=== PATIENT | female | born 1955 | race Caucasian/White ===

== ENCOUNTER 2016-07-21 16:43 | Inpatient (IN) | payer OTHER ==
[~2016-07-21] VITALS: Ht 157.5 cm; Wt 101.2 kg
[~2016-07-21 16:43] MED LIST: LISI10 PO; METO25 PO; NORV5TAB PO; Z.0.NO CURRENT MEDS
[2016-07-21 16:48] VITALS: BP 166/103; PULSE 81; RESP 16; TEMP 98.6; O2SAT 97
[2016-07-21] MEDS ORDERED: LISI-515 PO (17:01)
[2016-07-21] MEDS ORDERED: METO25TA3 PO (17:01)
[2016-07-21] MEDS ORDERED: SIMV40TA PO (17:01)
[2016-07-21] MEDS ORDERED: PANT40TA3 PO (17:01)
[2016-07-21] MEDS ORDERED: AMLO10TA2 PO (17:01)
--- NOTE | 2016-07-21 17:19 | PD ---
HPI Chief Complaint: Abdominal Pain Time Seen by Provider: 17:07 Travel History International Travel<30 days: No Contact w/Intl Traveler<30days: No Traveled to known affect area: No History of Present Illness HPI This 60-year-old female is complaining of abdominal pain. She says she is having a very sharp pain in the left midabdomen. The pain is somewhat intermittent. She has not eaten much since Sunday. She thinks the pain is aggravated by eating she is not sure. She had seen Dr. Díaz at one time because of gallbladder trouble. At that time she was quite obese and he told her she had to lose weight before he can operate on it. She's also been told that she has a hernia. She has not been vomiting. She is not aware of fever or chills. She has been taking Protonix for couple of years. She is not having pain right now. She has lost 55 pounds in the last couple of years PFSH Past Medical History Cardiovascular Problems: Yes (htn on meds, states did not take meds today) High Cholesterol: Yes Diminished Hearing: No Gastrointestinal Disorders: Yes (GALBLADDER DISEASE) Hypertension: Yes Immunizations Current: Yes Influenza Vaccination: No ?: Not Past Surgical History Surgical History: No Previous Surgery Gynecologic Surgery: Yes (D & C) Oral Surgery: Yes (TONSILLECTOMY CHILD) Other Surgery: Yes Social History Alcohol Use: Yes ("DRANK YESTERDAY") Tobacco Use: No Substance Use: No Allergies-Medications (Allergen,Severity, Reaction): Coded Allergies: Amoxicillin (Verified Allergy, Severe, Swelling, 07/21/16) Reported Meds & Prescriptions Reported Meds & Active Scripts Active Reported Pantoprazole (Pantoprazole Sodium) 40 Mg Tab 40 Mg PO DAILY Amlodipine (Amlodipine Besylate) 10 Mg Tab 10 Mg PO DAILY Lisinopril 20 Mg Tab 20 Mg PO DAILY Metoprolol Tartrate 25 Mg Tab 25 Mg PO BID Simvastatin 40 Mg Tab 40 Mg PO HS Review of Systems General / Constitutional: Positive: Weight Loss, No: Fever, Chills Eyes: No: Blurred Vision HENT: No: Vertigo, Lightheadedness Cardiovascular: No: Chest Pain or Discomfort, Palpitations Respiratory: No: Cough, Shortness of Breath Gastrointestinal: Positive: Abdominal Pain, Loss of Appetite, No: Diarrhea Genitourinary: No: Urgency Musculoskeletal: No: Myalgias, Arthralgias Skin: No Rash, No Itching Neurologic: No: Weakness, Dizziness Endocrine: No: Heat Intolerance, Cold Intolerance Hematologic/Lymphatic: No: Easy Bruising Physical Exam Narrative GENERAL: Obese female SKIN: Focused skin assessment warm/dry. HEAD: Atraumatic. Normocephalic. EYES: Pupils equal and round. No scleral icterus. No injection or drainage. ENT: No nasal bleeding or discharge. Mucous membranes pink and moist. NECK: Trachea midline. No JVD. CARDIOVASCULAR: Regular rate and rhythm. No murmur appreciated. RESPIRATORY: No accessory muscle use. Clear to auscultation. Breath sounds equal bilaterally. GASTROINTESTINAL: Abdomen soft, there is a very large area of protuberance involving the majority of the abdomen . I suspect is a large panniculus from her obesity. Hepatic and splenic margins not palpable. MUSCULOSKELETAL: No obvious deformities. No clubbing. No cyanosis. No edema. NEUROLOGICAL: Awake and alert. No obvious cranial nerve deficits. Motor grossly within normal limits. Normal speech. PSYCHIATRIC: Appropriate mood and affect; insight and judgment normal. Data Data Last Documented VS Vital Signs Date Time Temp Pulse Resp B/P Pulse Ox O2 Delivery O2 Flow Rate FiO2 07/21/16 16:48 98.6 81 16 166/103 97 Orders Complete Blood Count With Diff (07/21/16 17:13) Comprehensive Metabolic Panel (07/21/16 17:13) Lipase (07/21/16 17:13) Urinalysis - C+S If Indicated (07/21/16 17:13) Ct Abd/Pel W Iv Contrast(Rout) (07/21/16 17:13) Sodium Chlor 0.9% 1000 Ml Inj (Ns 1000 M (07/21/16 17:15) Iohexol 350 Inj (Omnipaque 350 Inj) (07/21/16 18:43) Insert Ng Tube (07/21/16 19:24) Place Ng Tube To Low Intermit (07/21/16 19:24) Ns + Kcl 40 Meq Inj (Ns + Kcl 40 Meq Inj (07/21/16 19:30) Admit Order (Ed Use Only) (07/21/16 19:37) Urine Culture (07/21/16 19:27) Labs Laboratory Tests Test 07/21/16 07/21/16 17:20 19:27 White Blood Count 7.9 TH/MM3 Red Blood Count 4.47 MIL/MM3 Hemoglobin 13.5 GM/DL Hematocrit 39.0 % Mean Corpuscular Volume 87.3 FL Mean Corpuscular Hemoglobin 30.1 PG Mean Corpuscular Hemoglobin 34.5 % Concent Red Cell Distribution Width 13.7 % Platelet Count 262 TH/MM3 Mean Platelet Volume 7.7 FL Neutrophils (%) (Auto) 78.6 % Lymphocytes (%) (Auto) 15.7 % Monocytes (%) (Auto) 4.6 % Eosinophils (%) (Auto) 0.8 % Basophils (%) (Auto) 0.3 % Neutrophils # (Auto) 6.2 TH/MM3 Lymphocytes # (Auto) 1.2 TH/MM3 Monocytes # (Auto) 0.4 TH/MM3 Eosinophils # (Auto) 0.1 TH/MM3 Basophils # (Auto) 0.0 TH/MM3 CBC Comment DIFF FINAL Differential Comment Sodium Level 142 MEQ/L Potassium Level 3.3 MEQ/L Chloride Level 106 MEQ/L Carbon Dioxide Level 25.9 MEQ/L Anion Gap 10 MEQ/L Blood Urea Nitrogen 13 MG/DL Creatinine 0.85 MG/DL Estimat Glomerular Filtration 68 ML/MIN Rate Random Glucose 93 MG/DL Calcium Level 9.0 MG/DL Total Bilirubin 0.9 MG/DL Aspartate Amino Transf 13 U/L (AST/SGOT) Alanine Aminotransferase 24 U/L (ALT/SGPT) Alkaline Phosphatase 90 U/L Total Protein 6.9 GM/DL Albumin 3.4 GM/DL Lipase 82 U/L Urine Color YELLOW Urine Turbidity CLEAR Urine pH 5.0 Urine Specific [place] GREATER THAN 1.035 Urine Protein NEG mg/dL Urine Glucose (UA) NEG mg/dL Urine Ketones 80 OR GREATER mg/dL Urine Occult Blood NEG Urine Nitrite POS Urine Bilirubin NEG Urine Leukocyte Esterase NEG Urine RBC 0-2 /hpf Urine WBC 6-8 /hpf Urine Squamous Epithelial 0-5 /hpf Cells Urine Bacteria FEW /hpf Microscopic Urinalysis Comment CULTURE INDICATED MDM Medical Decision Making Medical Screen Exam Complete: Yes Emergency Medical Condition: Yes Medical Record Reviewed: Yes Differential Diagnosis Differential includes ventral hernia, cholelithiasis, cholecystitis Narrative Course CT scan was obtained and shows a huge ventral abdominal wall hernia with multiple loops of small and large bowel resulting in small bowel correction. There is also mild hepatosplenomegaly. There is also cholelithiasis. Case has been discussed with Dr. Díaz who is covering for general surgery for [facility]. He requests the patient be admitted to [facility]. NG tube has been inserted Diagnosis Primary Impression: Small bowel obstruction Admitting Information Admitting Physician Requests: Admit Dillan Patel MD Jul 21, 2016 17:19
[2016-07-21 17:42] LABS: AUTOMATED NEUTROPHIL # 6.2 TH/MM3 (1.8-7.7); BASOPHIL % 0.3 % (0.0-2.0); EOSINOPHIL # 0.1 TH/MM3 (0-0.4); EOSINOPHIL % 0.8 % (0.0-4.0); HEMO FLAGS DIFF FINAL; LYMPH % 15.7 % (9.0-44.0); LYMPHOCYTE # 1.2 TH/MM3 (1.0-4.8); MEAN CELL VOLUME 87.3 FL (80.0-100.0); MEAN CORPUSCULAR HEMOGLOBIN 30.1 PG (27.0-34.0); MEAN CORPUSCULAR HGB CONC 34.5 % (32.0-36.0); MONO % 4.6 % (0.0-8.0); NEUT % 78.6 % (16.0-70.0); PLATELET COUNT 262 TH/MM3 (150-450); RED BLOOD COUNT 4.47 MIL/MM3 (4.00-5.30); RED CELL DISTRIBUTION WIDTH 13.7 % (11.6-17.2); WHITE BLOOD COUNT 7.9 TH/MM3 (4.0-11.0)
[2016-07-21] MEDS: SODIUM CHLOR 0.9% 1000 ML INJ 1,000 ML IV SCH (17:42)
[2016-07-21 17:54] LABS: CHLORIDE 106 MEQ/L (98-107); POTASSIUM 3.3 MEQ/L (3.5-5.1); SODIUM (NA) 142 MEQ/L (136-145)
[2016-07-21 17:59] LABS: ANION GAP 10 MEQ/L (5-15); BICARBONATE 25.9 MEQ/L (21.0-32.0); BLOOD UREA NITROGEN 13 MG/DL (7-18)
[2016-07-21 18:02] LABS: ALT (GPT) 24 U/L (10-53); AST (GOT) 13 U/L (15-37); GLOMERULAR FILTRATION RATE 68 ML/MIN (>89)
[2016-07-21 18:03] LABS: TOTAL BILIRUBIN ADULT 0.9 MG/DL (0.2-1.0)
[2016-07-21 18:05] LABS: ALKALINE PHOSPHATASE 90 U/L (45-117)
[2016-07-21] MEDS ORDERED: IOHEXOL 350 MG/ML 10 ML VIAL (for RAD DIAG) IV ONE (18:43)
--- NOTE | 2016-07-21 19:01 | RADHPO ---
EXAM DATE/TIME: 07/21/2016 18:22 [facility] COMPARISON: No previous studies available for comparison. INDICATIONS : Left sided abdominal pain for three days. IV CONTRAST: 97 cc Omnipaque 350 (iohexol) IV ORAL CONTRAST: No oral contrast ingested. RADIATION DOSE: 20.72 CTDIvol (mGy) MEDICAL HISTORY : Hypertension. SURGICAL HISTORY : None. ENCOUNTER: Initial ACUITY: 3 days PAIN SCALE: 7/10 LOCATION: Left abdomen. TECHNIQUE: Volumetric scanning of the abdomen and pelvis was performed. Using automated exposure control and ad justment of the mA and/or kV according to patient size, radiation dose was kept as low as reasonably achievable to obtain optimal diagnostic quality images. FINDINGS: There is a huge ventral abdominal wall hernia which contains multiple loops of small and large bowel. There is evidence of small bowel obstruction likely related to this hernia with multiple loops of fl uid-filled mildly dilated small intestine remaining within the abdomen and pelvis. There is mild hep atosplenomegaly. No focal hepatic or splenic mass is noted. No biliary ductal dilatation is noted. The gallbladder contains a large calcified gallstone. There is minimal ascites within the abdomen. The pancreas is normal. The adrenal glands are normal bilaterally. There is a cystic lesion arising from the medial aspect of the lower pole of the right kidney which measures 14 mm. Uncomplicated si gmoid diverticulosis is noted. No acute diverticulitis is noted. No colonic obstruction is noted. Th e urinary bladder is unremarkable. The uterus is also unremarkable. No retroperitoneal or mesenteri c lymphadenopathy is noted. No pelvic lymphadenopathy is noted. The abdominal aorta is calcified but is not aneurysmally dilated. The inferior vena cava is normal. Degenerative changes and scoliosis of the thoracolumbar spine are noted. There is a small left pleural effusion. CONCLUSION: 1. Huge ventral abdominal wall hernia containing multiple loops of small and large bowel and resultin g in small bowel obstruction. 2. Mild hepatosplenomegaly. 3. Cholelithiasis. 4. 14 mm cystic mass arising from the medial aspect of the lower pole of the right kidney. 5. Small left pleural effusion. 6. Uncomplicated sigmoid diverticulosis. 7. Minimal ascites. 8. Degenerative changes and scoliosis of the thoracolumbar spine. Lucho Brooke MD on July 21, 2016 at 18:46 Board Certified Radiologist. This report was verified electronically.
[2016-07-21 19:38] LABS: BLOOD, URINE NEG (NEG); GLUCOSE,URINE NEG (NEG)
[2016-07-21] MEDS: NS + KCL 40 MEQ INJ 1,000 ML IV SCH (19:40)
[2016-07-21 19:43] LABS: KETONE, URINE 80 OR GREATER mg/dL (NEG); NITRITE,URINE POS (NEG)
[2016-07-21 19:44] LABS: BACTERIA, URINE FEW /hpf; COMMENT (UR) CULTURE INDICATED; CULTURE IF INDICATED CULTURE INDICATED; RBC, URINE 0-2 /hpf (0-3); SQUAMOUS EPITHELIAL CELL URINE 0-5 /hpf (0-5); URINE COLOR YELLOW (YELLW/STRAW)
[2016-07-21] MEDS ORDERED: ONDANSETRON HCL 4 MG/2 ML VIAL IV PUSH ONE (20:00)
[2016-07-21] MEDS ORDERED: MORPHINE SULFATE 8 MG/ML INJ IV PUSH ONE (20:00)
[2016-07-21 20:48] VITALS: BP 153/82; PULSE 85; RESP 18; O2SAT 95
[2016-07-21 22:41] VITALS: BP 187/70; PULSE 75; RESP 20; TEMP 98.7; O2SAT 95
[2016-07-21 22:54] VITALS: BP 187/70; TEMP 98.7
[2016-07-22 00:10] VITALS: BP 152/69; PULSE 73; RESP 17; TEMP 97.1; O2SAT 97
[2016-07-22] MEDS: NS + KCL 40 MEQ INJ 1,000 ML IV SCH ×6 (00:30→23:52)
[2016-07-22] MEDS ORDERED: PHENOL 1.4% SOLN 180 ML BTL PO PRN (01:15)
[2016-07-22] MEDS: SODIUM CHLOR 0.9% 1000 ML INJ 1,000 ML IV SCH ×5 (01:57→23:52)
[2016-07-22 04:10] VITALS: BP 142/68; PULSE 71; RESP 17; TEMP 97.4; O2SAT 96
[2016-07-22 08:00] VITALS: BP 153/76; PULSE 78; RESP 18; TEMP 97.8; O2SAT 95
[2016-07-22] MEDS: LISINOPRIL 20 MG TAB PO SCH (09:00)
[2016-07-22] MEDS: METOPROLOL TARTRATE 25 MG TAB PO SCH ×2 (09:00→20:47)
[2016-07-22 12:00] VITALS: BP 138/69; PULSE 70; RESP 18; TEMP 97; O2SAT 95
[2016-07-22 16:00] VITALS: BP 158/80; PULSE 67; RESP 18; TEMP 97.6; O2SAT 96
[2016-07-22 20:07] VITALS: BP 130/72; PULSE 69; RESP 18; TEMP 97.5; O2SAT 96
[2016-07-22] MEDS: PRAVASTATIN SOD 80 MG TAB PO SCH (20:47)
[2016-07-23 00:01] VITALS: BP_SYST 127; BP_SYST 141; BP_DIAS 52; BP_DIAS 79; PULSE 62; PULSE 74; RESP 18; TEMP 97.3; TEMP 98.6; O2SAT 94; O2SAT 96
[2016-07-23 04:09] VITALS: BP 137/67; PULSE 62; RESP 18; TEMP 96.7; O2SAT 95
[2016-07-23] MEDS: NS + KCL 40 MEQ INJ 1,000 ML IV SCH ×4 (04:37→21:30)
[2016-07-23 06:48] LABS: AUTOMATED NEUTROPHIL # 4.6 TH/MM3 (1.8-7.7); BASOPHIL % 0.5 % (0.0-2.0); EOSINOPHIL # 0.1 TH/MM3 (0-0.4); EOSINOPHIL % 1.8 % (0.0-4.0); HEMATOCRIT 33.8 % (35.0-46.0); HEMO FLAGS DIFF FINAL; LYMPH % 18.9 % (9.0-44.0); LYMPHOCYTE # 1.2 TH/MM3 (1.0-4.8); MEAN CELL VOLUME 86.4 FL (80.0-100.0); MEAN CORPUSCULAR HEMOGLOBIN 29.9 PG (27.0-34.0); MEAN CORPUSCULAR HGB CONC 34.6 % (32.0-36.0); MONO % 5.5 % (0.0-8.0); NEUT % 73.3 % (16.0-70.0); PLATELET COUNT 207 TH/MM3 (150-450); RED BLOOD COUNT 3.91 MIL/MM3 (4.00-5.30); RED CELL DISTRIBUTION WIDTH 13.9 % (11.6-17.2); WHITE BLOOD COUNT 6.2 TH/MM3 (4.0-11.0)
[2016-07-23 08:00] VITALS: BP 151/80; PULSE 68; RESP 16; TEMP 97.3; O2SAT 96
[2016-07-23] MEDS: METOPROLOL TARTRATE 25 MG TAB PO SCH ×2 (09:00→20:07)
[2016-07-23] MEDS: LISINOPRIL 20 MG TAB PO SCH (09:00)
[2016-07-23] MEDS: SODIUM CHLOR 0.9% 1000 ML INJ 1,000 ML IV SCH ×2 (09:48→18:03)
[2016-07-23 12:00] VITALS: BP 160/64; PULSE 64; RESP 16; TEMP 97.9; O2SAT 98
--- NOTE | 2016-07-23 15:47 | HHI.PR ---
Subjective Subjective Notes pt comfortable no M/V pos flatus Objective Vitals/I&O Vital Signs Date Time Temp Pulse Resp B/P Pulse Ox O2 Delivery O2 Flow Rate FiO2 07/23/16 12:00 97.9 64 16 160/64 98 07/21/16 22:41 Room Air Labs Laboratory Tests Test 07/23/16 05:48 White Blood Count 6.2 Red Blood Count 3.91 Hemoglobin 11.7 Hematocrit 33.8 Mean Corpuscular Volume 86.4 Mean Corpuscular Hemoglobin 29.9 Mean Corpuscular Hemoglobin 34.6 Concent Red Cell Distribution Width 13.9 Platelet Count 207 Mean Platelet Volume 7.7 Neutrophils (%) (Auto) 73.3 Lymphocytes (%) (Auto) 18.9 Monocytes (%) (Auto) 5.5 Eosinophils (%) (Auto) 1.8 Basophils (%) (Auto) 0.5 Neutrophils # (Auto) 4.6 Lymphocytes # (Auto) 1.2 Monocytes # (Auto) 0.3 Eosinophils # (Auto) 0.1 Basophils # (Auto) 0.0 CBC Comment DIFF FINAL Differential Comment Date/Time Procedure Status Source Growth 07/21/16 19:27 Urine Culture - Final Complete Urine Clean Catch Klebsiella Pneumoniae Cardiovascular: Regular Abdomen: Non-tender Extremities: Perfused A/P Assessment and Plan pt with psbo large ventral hernia on clears now will cont to monitor Deny Rosas MD Jul 23, 2016 15:47
[2016-07-23 16:00] VITALS: BP 148/79; PULSE 67; RESP 16; TEMP 97.6; O2SAT 98
[2016-07-23 19:54] VITALS: BP 172/77; PULSE 81; RESP 19; TEMP 98.6; O2SAT 96
[2016-07-23] MEDS: PRAVASTATIN SOD 80 MG TAB PO SCH (20:07)
[2016-07-24 00:12] VITALS: BP 146/82; PULSE 85; RESP 16; TEMP 98.1; O2SAT 95
[2016-07-24] MEDS: SODIUM CHLOR 0.9% 1000 ML INJ 1,000 ML IV SCH ×4 (02:02→21:28)
[2016-07-24] MEDS: NS + KCL 40 MEQ INJ 1,000 ML IV SCH ×5 (02:30→19:45)
[2016-07-24 08:00] VITALS: BP 149/65; PULSE 63; RESP 16; TEMP 97.3; O2SAT 98
[2016-07-24] MEDS: LISINOPRIL 20 MG TAB PO SCH (09:00)
[2016-07-24] MEDS: METOPROLOL TARTRATE 25 MG TAB PO SCH ×2 (09:00→19:45)
[2016-07-24 16:00] VITALS: BP 153/81; PULSE 70; RESP 18; TEMP 97.5; O2SAT 97
--- NOTE | 2016-07-24 17:21 | HHI.PR ---
Subjective Subjective Notes pt comfortable no N/V pos BM Objective Vitals/I&O Vital Signs Date Time Temp Pulse Resp B/P Pulse Ox O2 Delivery O2 Flow Rate FiO2 07/24/16 08:00 97.3 63 16 149/65 98 07/23/16 20:00 Room Air Labs Date/Time Procedure Status Source Growth 07/21/16 19:27 Urine Culture - Final Complete Urine Clean Catch Klebsiella Pneumoniae Cardiovascular: Regular Lungs: Clear Abdomen: Non-tender A/P Assessment and Plan pt with psbo resolving large ventral hernia advance diet full liquids if wander d/c in am Deny Rosas MD Jul 24, 2016 17:21
[2016-07-24] MEDS: PRAVASTATIN SOD 80 MG TAB PO SCH (19:45)
[2016-07-24 20:00] VITALS: BP 151/83; PULSE 70; RESP 18; TEMP 98.5; O2SAT 97
[2016-07-24 23:45] VITALS: BP 157/82; PULSE 68; RESP 17; TEMP 97.9; O2SAT 95
[2016-07-25] MEDS: NS + KCL 40 MEQ INJ 1,000 ML IV SCH ×2 (01:35→08:30)
[2016-07-25 08:00] VITALS: BP 151/90; PULSE 77; RESP 18; TEMP 98; O2SAT 95
[2016-07-25] MEDS: LISINOPRIL 20 MG TAB PO SCH (09:00)
[2016-07-25] MEDS: METOPROLOL TARTRATE 25 MG TAB PO SCH (09:00)
[2016-07-25] MEDS: SODIUM CHLOR 0.9% 1000 ML INJ 1,000 ML IV SCH (09:15)
[2016-07-25 12:00] VITALS: BP_SYST 134; BP_SYST 161; BP_DIAS 63; BP_DIAS 70; PULSE 59; PULSE 81; RESP 18; TEMP 97.5; TEMP 98.4; O2SAT 92; O2SAT 96
--- NOTE | 2016-07-25 12:52 | HHI.PR ---
Subjective Subjective Notes pt comfortable no n/n pos flatus no abd pain Objective Vitals/I&O Vital Signs Date Time Temp Pulse Resp B/P Pulse Ox O2 Delivery O2 Flow Rate FiO2 07/25/16 12:00 98.4 59 18 134/70 96 07/23/16 20:00 Room Air Labs Date/Time Procedure Status Source Growth 07/21/16 19:27 Urine Culture - Final Complete Urine Clean Catch Klebsiella Pneumoniae Cardiovascular: Regular Lungs: Clear Abdomen: Non-tender A/P Assessment and Plan pt with psbo large ventral hernia wander liquids d/c home f/u office two weeks Deny Rosas MD Jul 25, 2016 12:52
--- NOTE | 2016-08-07 10:01 | MH ---
cc: WILLI ZHENG DATE OF ADMISSION: 07/21/2016 HISTORY OF PRESENT ILLNESS This is a 60-year-old female who presented to [facility] with a complaint of abdominal pain. Patient with a history of morbid obesity as well as ventral hernia. She was seen in the past by myself for this and recommendation for weight loss was prior to hernia repair. She now presents with onset of pain for approximately 72 hours without flatus. She had a CAT scan revealing dilated small bowel proximal to the hernia. The patient states that she has had similar symptoms in the past and usually went away on its own. No fevers or chills or urinary symptoms. PAST MEDICAL HISTORY 1. Hypercholesterolemia. 2. Hypertension. PAST SURGICAL HISTORY 1. D&C. 2. Tonsillectomy. SOCIAL HISTORY The patient does have a history of alcohol use. No tobacco use. ALLERGIES AMOXICILLIN. MEDICATIONS 1. Lisinopril. 2. Metoprolol. 3. Simvastatin. 4. Amlodipine. FAMILY HISTORY Noncontributory. REVIEW OF SYSTEMS Significant for above. All other 10-point review is negative. PHYSICAL EXAMINATION GENERAL: On exam this is an obese female lying in bed in no acute distress. HEENT: The pupils are equal and reactive. NECK: The trachea is midline. LUNGS: Respirations are clear. HEART: Regular. ABDOMEN: Obese. Palpable ventral hernia, reducible. EXTREMITIES: No deformities. NEUROLOGIC: Nonfocal. LABORATORY DATA White count 7.9. Potassium 3.3. ASSESSMENT This is a patient with super obesity and a large chronic ventral hernia, likely with a partial obstruction. RECOMMENDATIONS It is recommended the patient try to manage this non-operatively. The patient has an NG tube in place. Will monitor her for passage of gas. If this occurs will advance the patient's diet and allow her to continue to lose weight prior to undertaking hernia repair. The risks and benefits as well as mode of therapy were explained to the patient and she verbalized understanding. Will monitor. MD VICENTE Damian/ASHKAN /9:46 AM /9:53 AM
== END 2016-07-25 16:07 | disposition home or self-care (01) | DRG 394 ==
LOC: PHED 16:43 → PHEDA 19:39 → N06B 23:17
PROVIDERS: ADMIT Surgery; ATTEND Surgery
DX: K43.6 Other and unspecified ventral hernia with obstruction, without gangrene (principal); Z68.41 Body mass index [BMI] 40.0-44.9, adult; E66.01 Morbid (severe) obesity due to excess calories; I10 Essential (primary) hypertension; E78.00 Pure hypercholesterolemia, unspecified; K80.20 Calculus of gallbladder without cholecystitis without obstruction
CPT/HCPCS: 74177; 80053; 81001; 83690; 85025; 87077; 87086; 87186; 96360; 96361; J2270; J2405; J3480; J7030; Q9967

== ENCOUNTER 2016-10-04 08:30 | Inpatient (IN) | payer OTHER ==
[~2016-10-04] VITALS: Ht 162.6 cm; Wt 91.0 kg
[~2016-10-04 08:30] MED LIST changes: +AMLO10TA2 PO; +LISI-515 PO; -LISI10 PO; -METO25 PO; +METO25TA3 PO; -NORV5TAB PO; +SIMV40TA PO; -Z.0.NO CURRENT MEDS
[2017-01-17] MEDS ORDERED: PROT40TA PO (13:25)
[2017-01-26] MEDS ORDERED: LACTATED RINGER'S 1000 ML IV PRN (08:00)
[2017-01-26] MEDS ORDERED: SODIUM CHLORID 0.9% 500 ML IV PRN (08:00)
[2017-01-26] MEDS ORDERED: POVIDONE IODINE 5% (ANTISEPSIS KIT) 4 APPLICATIONS EACH NARE PRN (08:00)
[2017-01-26] MEDS ORDERED: METOPROLOL TARTRATE 25 MG TAB PO PRN (08:00)
[2017-01-26] MEDS ORDERED: CHLORHEXIDINE GLUCONATE 2 % 1 PACK (2 CLOTHS) TOPICAL PRN (08:00)
[2017-01-26] MEDS ORDERED: INSULIN HUMAN REGULAR 1,000 UNITS/10 ML VIAL SQ PRN (08:00)
[2017-01-26] MEDS ORDERED: ACETAMINOPHEN 1000 MG/100 ML 100 ML IV SCH (08:15)
[2017-01-26] MEDS ORDERED: metroNIDAZOLE 500 MG INJ 100 ML IV SCH (08:15)
[2017-01-26] MEDS ORDERED: APREPITANT 40 MG CAP PO SCH (08:15)
[2017-01-26] MEDS ORDERED: ceFAZolin 2 GM PREMIX 50 ML IV SCH (08:15)
[2017-01-26] MEDS ORDERED: ASPI-183 PO (08:42)
[2017-01-26] MEDS ORDERED: DULC100C PO (08:44)
[2017-01-26] MEDS ORDERED: CHOL10008 PO (08:44)
[2017-01-26] MEDS ORDERED: OMEGCAP PO (08:44)
[2017-01-26] MEDS ORDERED: B-122000 PO (08:44)
[2017-01-26] MEDS ORDERED: ENOXAPARIN SODIUM 40 MG/0.4 ML SYRINGE SQ ONE (10:45)
[2017-01-26] MEDS: ONDANSETRON HCL 4 MG/2 ML VIAL IV PUSH SCH (10:47)
[2017-01-26] MEDS ORDERED: DEXAMETHASONE SOD PHOS 4 MG/ML VIAL IV ONE (12:00)
[2017-01-26] MEDS ORDERED: MIDAZOLAM HCL 2 MG/2 ML VIAL IV ONE (12:00)
[2017-01-26] MEDS ORDERED: ROCURONIUM INJ 50 MG/5 ML SYRINGE IV PUSH ONE (12:00)
[2017-01-26] MEDS ORDERED: PROPOFOL 200 MG/20 ML AMP IV ONE (12:00)
[2017-01-26] MEDS ORDERED: ONDANSETRON HCL 4 MG/2 ML VIAL IV PUSH ONE (12:00)
[2017-01-26] MEDS ORDERED: EPINEPHRINE OTHER SCH ×2 (12:00→16:15)
[2017-01-26] MEDS ORDERED: STERILE WATER FOR INJECTION 20 ML VIAL IV ONE (12:00)
[2017-01-26] MEDS ORDERED: VECURONIUM BROMIDE 20 MG VIAL IV ONE (12:00)
[2017-01-26] MEDS ORDERED: SODIUM CHLOR 0.9% OTHER SCH ×2 (12:00→16:15)
[2017-01-26] MEDS ORDERED: PHENYLEPH/NS 1000 MCG/10 ML SYR IV ONE (12:00)
[2017-01-26] MEDS ORDERED: ePHEDrine/NS 25 MG/5 ML SYR IV ONE (12:00)
[2017-01-26] MEDS ORDERED: NEOSTIGMINE 3 MG/3 ML SYR IV ONE (12:00)
[2017-01-26] MEDS ORDERED: LIDOCAINE HCL 1% PF 5 ML AMPULE OTHER ONE (12:00)
[2017-01-26] MEDS ORDERED: EPINEPHRINE IV ONE ×2 (12:00→16:00)
[2017-01-26] MEDS ORDERED: GLYCOPYRROLATE 1 MG/5 ML SYRINGE IV PUSH ONE (12:00)
[2017-01-26] MEDS ORDERED: NORMOSOL R INJ 3,000 ML IV ONE (12:00)
[2017-01-26] MEDS ORDERED: SODIUM CHLOR 0.9% IV ONE ×2 (12:00→16:00)
[2017-01-26] MEDS ORDERED: FAMOTIDINE 20 MG/2 ML VIAL ONE (12:44)
[2017-01-26] MEDS ORDERED: BUPIVACAINE HCL PF 0.25% 30 ML VIAL ONE (15:19)
[2017-01-26] MEDS ORDERED: BUPIVACAINE HCL PF 0.5% 30 ML VIAL ONE (15:21)
[2017-01-26] MEDS ORDERED: HYDROmorphone HCL PF 2 MG/ML VIAL ONE (15:23)
[2017-01-26] MEDS ORDERED: SUGAMMADEX SODIUM 200 MG/2 ML VIAL IV PUSH ONE ×2 (17:48)
[2017-01-26] MEDS ORDERED: STERILE WATER FOR INJECTION 20 ML VIAL ONE (17:57)
[2017-01-26] MEDS ORDERED: Post-op Orders (for Pharmacy) MISC XX ONE (19:45)
[2017-01-26] MEDS ORDERED: MAGNESIUM HYDROXIDE SUSP 30 ML CUP PO PRN (19:45)
[2017-01-26] MEDS ORDERED: NALOXONE HCL 0.4 MG/ML AMP IV PUSH PRN (19:45)
[2017-01-26] MEDS ORDERED: DO NOT ADM ANY ANTICOAGULANT DRUGS PRN (19:45)
[2017-01-26] MEDS ORDERED: SODIUM CHLORIDE 0.9% FLUSH 10 ML FLUSH IV FLUSH PRN (19:45)
[2017-01-26] MEDS ORDERED: *RESP: ALBUTEROL 2.5 MG/3 ML NEB (PRN) PERIprocedural Use ONLY NEB ONE (19:56)
[2017-01-26] MEDS ORDERED: ceFAZolin 2 GM PREMIX 50 ML IV ONE (20:00)
[2017-01-26] MEDS: VANCOMYCIN INJ 1,000 MG in SODIUM CHLOR 0.9% 250 ML INJ 250 ML IV SCH (20:00)
[2017-01-26] MEDS: D5-NS + KCL 20 MEQ INJ 1,000 ML IV SCH (20:00)
[2017-01-26] MEDS: metroNIDAZOLE 500 MG INJ 100 ML IV SCH (20:00)
[2017-01-26 20:19] VITALS: O2SAT 91; O2SAT 95
[2017-01-26] MEDS: MORPHINE SULFATE 30 MG/30 ML PCA IV SCH (20:28)
[2017-01-26 21:45] VITALS: BP 112/58; PULSE 101; RESP 18; TEMP 96.7; O2SAT 93
[2017-01-26] MEDS: DOCUSATE SODIUM 100 MG CAP PO SCH (22:12)
[2017-01-26] MEDS: SODIUM CHLORIDE 0.9% FLUSH 10 ML FLUSH IV FLUSH SCH (22:13)
[2017-01-26] MEDS: PCA - TOTAL MG MORPHINE DELIVERED PER SHIFT SCH (22:13)
[2017-01-26 23:09] VITALS: BP 100/55; PULSE 115; RESP 18; TEMP 96.4; O2SAT 93
[2017-01-27] VITALS (8 sets, daily range): BP systolic 98–121; BP diastolic 47–69; PULSE 102–112; RESP 18–24; TEMP 96.8–100.2; O2SAT 95–97
[2017-01-27] MEDS: D5-NS + KCL 20 MEQ INJ 1,000 ML IV SCH ×2 (04:36→12:00)
[2017-01-27] MEDS: metroNIDAZOLE 500 MG INJ 100 ML IV SCH ×2 (04:37→12:47)
[2017-01-27] MEDS: PCA - TOTAL MG MORPHINE DELIVERED PER SHIFT SCH ×3 (06:30→21:07)
[2017-01-27 06:47] LABS: AUTOMATED NEUTROPHIL # 10.7 TH/MM3 (1.8-7.7); BASOPHIL % 0.2 % (0.0-2.0); HEMATOCRIT 33.5 % (35.0-46.0); HEMO FLAGS DIFF FINAL; LYMPH % 6.5 % (9.0-44.0); LYMPHOCYTE # 0.8 TH/MM3 (1.0-4.8); MEAN CELL VOLUME 88.9 FL (80.0-100.0); MEAN CORPUSCULAR HGB CONC 33.7 % (32.0-36.0); MONO % 8.1 % (0.0-8.0); NEUT % 85.2 % (16.0-70.0); PLATELET COUNT 340 TH/MM3 (150-450); RED BLOOD COUNT 3.77 MIL/MM3 (4.00-5.30); RED CELL DISTRIBUTION WIDTH 13.2 % (11.6-17.2); WHITE BLOOD COUNT 12.6 TH/MM3 (4.0-11.0)
[2017-01-27 07:09] LABS: BICARBONATE 24.2 MEQ/L (21.0-32.0); POTASSIUM 4.5 MEQ/L (3.5-5.1)
[2017-01-27] MEDS: VANCOMYCIN INJ 1,000 MG in SODIUM CHLOR 0.9% 250 ML INJ 250 ML IV SCH (08:20)
[2017-01-27] MEDS: DOCUSATE SODIUM 100 MG CAP PO SCH ×2 (08:20→19:45)
[2017-01-27] MEDS: SODIUM CHLORIDE 0.9% FLUSH 10 ML FLUSH IV FLUSH SCH ×2 (08:26→21:06)
--- NOTE | 2017-01-27 11:29 | RADRPT ---
EXAM DATE/TIME: 01/27/2017 10:44 [facility] COMPARISON: CHEST SINGLE AP, August 27, 2011, 22:09. ABDOMEN FLAT & UPRIGHT, January 14, 2017, 8:09. INDICATIONS : Shortness of breath post ventral hernia repair. MEDICAL HISTORY : Ventral hernia. SURGICAL HISTORY : Ventral hernia repair. ENCOUNTER: Initial ACUITY: 1 day PAIN SCORE: 0/10 LOCATION: Bilateral chest FINDINGS: There is moderate cardiomegaly. There is a hiatal hernia. There are bilateral effusions and diffuse i nterstitial prominence. Exam would suggest congestive failure. There are degenerative changes within the spine and shoulders. CONCLUSION: 1. Cardiomegaly, bilateral effusions and diffuse interstitial prominence suggesting congestive failur e. Lee Archuleta MD on January 27, 2017 at 11:27 Board Certified Radiologist. This report was verified electronically.
--- NOTE | 2017-01-27 12:00 | PD.CONS ---
HPI Service [facility] Hospitalists Consult Requested By Dr. Deny Rosas Reason for Consult Medical management Primary Care Physician Dr. Sonido Dhillon Diagnoses: History of Present Illness Ms. Prince is a pleasant 61 y/o female with HTN and large ventral hernia with recurrent SBO. She had two hospitalizations this year related to SBO, most recently was about 2 weeks ago. Pt improved with conservative measures at that time and was discharged to followup with General Surgery. She underwent ventral hernia repair with mesh, abdominal wall reconstructions with panniculectomy on 01/26/[address] Rosas. Pt reportedly required BiPAP in the PACU per nursing staff and was able to be weaned down to 4L simple mask before being transferred to the medical floor. Pt reports that she has not been deep breathing because it is quite painful to take deep breaths. Her O2 requirements having increased to 7L via simple mask. Pt is running low grade fevers this morning with Tmax 100.2. Her BP has been low and pt has been tachycardic in the low 100-110's as well. Her home BP medications are on hold. CXR this morning noted cardiomegaly, bilateral effusions and diffuse interstitial prominence suggesting congestive failure. Pt denies any chest pain or palpitations. Review of Systems Constitutional: COMPLAINS OF: Fever, DENIES: Chills, Dizziness Eyes: DENIES: Vision loss Ears, nose, mouth, throat: DENIES: Hearing loss Respiratory: COMPLAINS OF: Shortness of breath, DENIES: Cough Cardiovascular: COMPLAINS OF: Lower Extremity Edema, DENIES: Chest pain, Palpitations Gastrointestinal: COMPLAINS OF: Abdominal pain, DENIES: Nausea, Vomiting Genitourinary: DENIES: Hematuria Musculoskeletal: DENIES: Back pain, Neck pain Integumentary: DENIES: Rash Neurologic: DENIES: Headache Psychiatric: DENIES: Confusion Past Family Social History Past Medical History Obesity Hypertension Hyperlipidemia Large Ventral hernia Recent hospitalization with SBO Past Surgical History Tonsillectomy and adenoidectomy D&C Reported Medications -Amlodipine 10 Mg PO DAILY -Lisinopril 20 Mg PO DAILY -Metoprolol Tartrate 25 Mg PO BID -Simvastatin 40 Mg PO HS ?Aspirin 650 Mg PO Q6H [place]-3 Fish Oil/Vitamin (Fish Oil-Cholecalciferol) 1,000-1,000 Mg Cap 1 Cap PO DAILY Dulcolax Stool Softener (Docusate Sodium) 100 Mg Cap 300 Mg PO DAILY B-12 (Cyanocobalamin) 2,000 Mcg Tab 2,000 Mcg PO DAILY Vitamin D3 (Cholecalciferol) 1,000 Unit Cap 1,000 Units PO DAILY Allergies: Coded Allergies: amoxicillin (Unverified Allergy, Severe, Swelling, 01/26/17) Family History Noncontributory Social History Denies tobacco or illicit drug use She does drink alcohol but relatively rarely Has no biological children Works locally at a [employer] Physical Exam Vital Signs Vital Signs Date Time Temp Pulse Resp B/P (MAP) Pulse Ox O2 Delivery O2 Flow Rate FiO2 01/27/17 09:49 95 Simple Mask 7.00 01/27/17 08:15 Simple Mask 7.00 01/27/17 08:00 100.2 102 19 98/61 (73) 97 01/27/17 07:36 97 Simple Mask 7.00 01/27/17 06:30 18 01/27/17 03:28 96.8 103 18 115/47 (69) 95 01/27/17 03:14 95 Mask 7.00 01/26/17 23:09 96.4 115 18 100/55 (70) 93 01/26/17 22:13 18 01/26/17 21:45 96.7 101 18 112/58 (76) 93 01/26/17 21:21 98.1 104 20 104/54 (71) 91 Nasal Cannula 4 01/26/17 21:15 104 20 104/54 (71) 91 Nasal Cannula 4 01/26/17 21:00 109 20 98/51 (67) 95 Bi-Pap 100 01/26/17 20:45 103 20 104/52 (69) 95 Bi-Pap 100 01/26/17 20:30 109 20 103/54 (70) 93 Bi-Pap 100 01/26/17 20:28 16 01/26/17 20:19 95 100 01/26/17 20:19 91 Non-Rebreather 15.00 100 01/26/17 20:15 110 20 119/57 (77) 91 Simple Mask 6 01/26/17 20:00 110 20 114/61 (78) 82 Simple Mask 6 01/26/17 19:47 98.1 118 20 124/89 (101) 88 Simple Mask 6 01/26/17 16:18 72 101/55 Physical Exam GENERAL: This is a well-nourished, well-developed patient, in no apparent distress. SKIN: No rashes, ecchymoses or lesions. Cool and dry. HEENT: Atraumatic. Normocephalic. No temporal or scalp tenderness. No scleral icterus. Airway patent. NECK: Trachea midline, supple, nontender. CARDIO: Regular RESP: Crackles at the bases bilaterally. Poor inspiratory effort ABD: Abdominal binder in place, two LEIF drains noted with serosanguineous fluid EXT: Extremities without clubbing, cyanosis, or edema. NEURO: Awake and alert. Motor and sensory grossly within normal limits. Normal speech. Laboratory Laboratory Tests Test 01/27/17 05:21 White Blood Count 12.6 Red Blood Count 3.77 Hemoglobin 11.3 Hematocrit 33.5 Mean Corpuscular Volume 88.9 Mean Corpuscular Hemoglobin 30.0 Mean Corpuscular Hemoglobin Concent 33.7 Red Cell Distribution Width 13.2 Platelet Count 340 Mean Platelet Volume 7.5 Neutrophils (%) (Auto) 85.2 Lymphocytes (%) (Auto) 6.5 Monocytes (%) (Auto) 8.1 Eosinophils (%) (Auto) 0.0 Basophils (%) (Auto) 0.2 Neutrophils # (Auto) 10.7 Lymphocytes # (Auto) 0.8 Monocytes # (Auto) 1.0 Eosinophils # (Auto) 0.0 Basophils # (Auto) 0.0 CBC Comment DIFF FINAL Differential Comment Blood Urea Nitrogen 18 Creatinine 0.90 Random Glucose 167 Calcium Level 8.1 Sodium Level 141 Potassium Level 4.5 Chloride Level 110 Carbon Dioxide Level 24.2 Anion Gap 7 Estimat Glomerular Filtration Rate 64 Result Diagram: 01/27/1752001/27/17520 Imaging CXR (01/27/17): - Cardiomegaly, bilateral effusions and diffuse interstitial prominence suggesting congestive failure. Assessment and Plan Problem List: (1) Volume overload ICD Codes: E87.70 - Fluid overload, unspecified Status: Acute Plan: - 61 y/o female with HTN and large ventral hernia with recurrent SBO. She had two hospitalizations this year related to SBO, most recently was about 2 weeks ago. Pt improved with conservative measures at that time and was discharged to followup with General Surgery. - Pt was readmitted and underwent ventral hernia repair with mesh, abdominal wall reconstructions with panniculectomy on 01/26/[address] Rosas. - POD #1 pt appears SOB and based on I&O her readings are quite positive and appears to be volume overloaded. She has the abdominal binder in place and poor inspiratory effort as well. - Her O2 requirements having increased to 7L via simple mask. - Pt is running low grade fevers this morning with Tmax 100.2. - Her BP has been low and pt has been tachycardic in the low 100-110's as well and her home BP medications are on hold. - CXR this morning noted cardiomegaly, bilateral effusions and diffuse interstitial prominence suggesting congestive failure. - We will temporarily hold the pts IVF and give a small dose of oral Lasix 20mg po x one dose - We will re-evaluate her this afternoon and see how she is tolerating diuresis. - Pt has no hx of CHF. - Give Duonebs now as well - Monitor I&Os - May need to resume IVF this afternoon. - Supportive care (2) Ventral hernia ICD Codes: K43.9 - Ventral hernia without obstruction or gangrene Status: Chronic Plan: - See above. (3) Hypertension ICD Codes: I10 - Essential (primary) hypertension Status: Chronic Plan: - BP is low, home meds on hold (4) Hyperlipidemia ICD Codes: E78.5 - Hyperlipidemia, unspecified Status: Chronic Assessment and Plan Patient examined. Assessment and plan formulated with Ami Montgomery PA-C. I agree with the above. s/p ventral hernia repair. appears volume overloaded. bp borderline low. She actually talking in sentences and thinks she is doing ok. will hold ivf for a few hours and try gentle ivf before resuming at lower dose. will try duonebs. will reassess later today. Problem Qualifiers (1) Volume overload: Qualified Codes: E87.79 - Other fluid overload Ami Montgomery Jan 27, 2017 12:00 Jose Calderon MD Jan 27, 2017 14:31
[2017-01-27] MEDS ORDERED: DEXTROSE 50% IN WATER 50 ML VIAL(D50) IV PUSH PRN (12:45)
[2017-01-27] MEDS ORDERED: GLUCAGON 1 MG/ML VIAL OTHER PRN (12:45)
[2017-01-27] MEDS ORDERED: RESP: ALBUTEROL 2.5 MG/IPRATROPIUM 0.5 MG NEB (SCH) NEB ONE (13:15)
[2017-01-27] MEDS ORDERED: FUROSEMIDE 20 MG TAB PO ONE ×2 (13:15→18:00)
[2017-01-27] MEDS ORDERED: RESP: ALBUTEROL 2.5 MG/IPRATROPIUM 0.5 MG NEB (SCH) NEB (16:00)
[2017-01-27] MEDS: INSULIN NovoLIN REGULAR SUPPLEMENTAL SCALE SQ SCH ×2 (17:00→21:00)
[2017-01-27] MEDS: MORPHINE SULFATE 30 MG/30 ML PCA IV SCH (17:07)
[2017-01-27] MEDS ORDERED: FUROSEMIDE 20 MG/2 ML VIAL IV PUSH ONE (18:00)
--- NOTE | 2017-01-27 18:03 | RADRPT ---
EXAM DATE/TIME: 01/27/2017 17:36 [facility] COMPARISON: CHEST SINGLE AP, January 27, 2017, 10:44. INDICATIONS : Halicat. MEDICAL HISTORY : Ventral hernia. SURGICAL HISTORY : Ventral hernia repair. ENCOUNTER: Initial ACUITY: 1 day PAIN SCORE: Non-responsive. LOCATION: Bilateral chest FINDINGS: Decreased lung volumes are again noted with basilar consolidation and a small right effusion. Degener ative changes of the spine. CONCLUSION: No significant change has occurred. Sabino Stokes MD on January 27, 2017 at 18:01 Board Certified Radiologist. This report was verified electronically.
[2017-01-27] MEDS ORDERED: IOHEXOL 350 MG/ML 10 ML VIAL (for RAD DIAG) IVCONTRAST ONE (18:33)
[2017-01-27] MEDS: ENOXAPARIN SODIUM 40 MG/0.4 ML SYRINGE SQ SCH (18:45)
--- NOTE | 2017-01-27 18:46 | RADRPT ---
EXAM DATE/TIME: 01/27/2017 18:20 [facility] COMPARISON: No previous studies available for comparison. INDICATIONS : Shortness of breath. IV CONTRAST: 75 cc Omnipaque 350 (iohexol) IV RADIATION DOSE: 14.22 CTDIvol (mGy) MEDICAL HISTORY : Cardiovascular disease. Hypertension. SURGICAL HISTORY : None. ENCOUNTER: Initial ACUITY: 1 day PAIN SCALE: 5/10 LOCATION: Bilateral chest TECHNIQUE: Volumetric scanning of the chest was performed using a pulmonary embolism protocol MIP images were re constructed. Using automated exposure control and adjustment of the mA and/or kV according to patien t size, radiation dose was kept as low as reasonably achievable to obtain optimal diagnostic quality images. DICOM format image data is available electronically for review and comparison. Follow-up recommendations for detected pulmonary nodules are based at a minimum on nodule size and pa tient risk factors according to Fleischner Society Guidelines. FINDINGS: PULMONARY ARTERIES: No filling defects are seen in the pulmonary arteries through the segmental level. LUNGS: There are consolidative changes in the posterior lung bases bilaterally. PLEURAE: There is a small partially loculated pleural fluid collection in the posterior left lung base. Minima l pleural fluid on the right MEDIASTINUM: There is a peripherally calcified low-density mass involving the right lobe of the thyroid and low de nsity nodularity of the left thyroid as well. There is no evidence of central mediastinal adenopathy. MUSCULOSKELETAL: Within normal limits for patient age. MISCELLANEOUS: The visualized upper abdominal organs demonstrate no acute abnormality. There is a single prominent l ymph node in the left axillary region measuring approximately 2 x 3.2 cm (long axis by short axis). CONCLUSION: No evidence of pulmonary embolism. Basilar infiltrates. Prominent left axillary lymph node Carlitos Murrieta MD on January 27, 2017 at 18:36 Board Certified Radiologist. This report was verified electronically.
--- NOTE | 2017-01-27 18:56 | HHI.PR ---
Addendum to Inpatient Note Addendum Reason: Additional Documentation Additional Information SUDEEP SUBJECTIVE: Sanchezzeeshan Called on the overhead (we were not paged) and we immediately rushed to the patient's bedside. Upon arrival the nurse was telling the details of the patient's presentation. The patient is postop day 1 from a ventral hernia repair and she has been showing signs of fluid overload (signs on CXR), and was given a dose of PO Lasix this morning. The patient appeared to be acutely short of breath, and the nurse placed O2 mask on 10L O2. The patient is in mild to moderate distress. The attendings are managing from afar and has already ordered a stat dose of Lasix 20mg IV, and CBC, CMP, EKG, ABG, CXR, and CTA. He also ordered stat transfer to CTA and surgical ICU. OBJECTIVE: Vitals at arrival: BP 129/72 HR 111 O2 sat 96 PE GENERAL: pt appears to be in mild/moderate distress, patient is able to carry out conversation, breathing SKIN: Warm and dry. HEAD: Normocephalic. EYES: No scleral icterus. No injection or drainage. NECK: Supple, trachea midline. No JVD or lymphadenopathy. CARDIOVASCULAR: distant heart sounds, Regular rate and rhythm without murmurs, gallops, or rubs. RESPIRATORY: Breath sounds equal bilaterally. No accessory muscle use.middle and lower lobes with bilateral rales and crackles GASTROINTESTINAL: Abdomen soft, non-tender, nondistended. MUSCULOSKELETAL: No cyanosis, or edema. no erythema or swelling of calves bilaterally BACK: Nontender without obvious deformity. No CVA tenderness. A/P: 61-year-old female, postop day 1 from a ventral hernia repair, presents with acute shortness of breath; rule out PE versus fluid overload - stat dose of Lasix 20mg IV, and CBC, CMP, EKG, Lactic acid, ABG, CXR, and CTA - add BNP - continue face mask at 10L O2 - transfer to SICU Luz Elena Avalos MD R2 Jan 27, 2017 18:56
[2017-01-27 19:36] LABS: BLOOD GAS BASE EXCESS -0.8 mmol/L (-2-2); BLOOD GAS CARBOXYHEMOGLOBIN 1.4 % (0-4); BLOOD GAS HCO3 24 mmol/L (22-26); BLOOD GAS METHEMOGLOBIN 0.9 % (0-2); BLOOD GAS O2 HGB SATURATION 95 % (90-100); BLOOD GAS OXYGEN CONTENT 16.2 Vol % (12.0-20.0); BLOOD GAS PCO2 42 mmHg (38-42); BLOOD GAS PO2 86 mmHg (61-120); BLOOD GAS TOTAL HGB 12.1 G/DL (12.0-16.0); CRITICAL VALUE NO; TEMP CORR TO 98.6
[2017-01-27 19:37] LABS: DRAW SITE RT RADIAL; LITER FLOW 10 L/M; NUMBER OF ARTERIAL PUNCTURES 2; OXYGEN DEVICE SIMPLE MASK; STAT YES; ULNAR PULSE PRESENT
[2017-01-27] MEDS: LEVOFLOXACIN 750 MG PREMIX INJ 150 ML IV SCH (19:45)
[2017-01-27] MEDS: ONDANSETRON HCL 4 MG/2 ML VIAL IV PUSH SCH (19:45)
--- NOTE | 2017-01-27 19:49 | PD.CONS ---
[facility] Service Critical Care Medicine Consult Requested By Dr. Díaz Reason for Consult Resp failure Primary Care Physician No Primary Care Physician History of Present Illness History of Present Illness 61-year-old old morbidly obese female with a medical history significant for hypertension, large ventral hernia and recurrent SBO who underwent ventral hernia repair with mesh abdominal wall reconstruction with panniculectomy on 01/26/[address] Díaz a general anesthesia, tolerated procedure well, required BiPAP in PACU and was subsequently weaned down to 4 L simple mask and transferred to the floor. Patient has been on a morphine [employer] and continued to have trouble with her breathing with O2 requirement increasing some liters simple mask however stated that she could not take deep breaths because of pain. She did have a temperature this morning of 100.2 and had borderline blood pressures as well as tachycardia with heart rate in the 100-110 range. Patient was evaluated by Dr. Pearson earlier and was ordered 20 mg Lasix IV. Patient subsequently underwent a CT pulmonary angiogram which was negative for PE however did show left lung base consolidation. Patient was transferred to the ICU and critical care consult was requested by Dr. Díaz. Stat labs ordered during transfer are still pending. I evaluated the patient following her arrival to the ICU. At that time she was on 10 L simple mask with a temperature of 98.8, heart rate 108, blood pressure 132/59, O2 sat 96%. She appeared comfortably laying in bed and was not in any acute distress. She denied any chest pain. She stated that her breathing appears slightly better. History was obtained by reviewing records and discussion with nursing staff and Dr. Pearson who has evaluated the patient earlier. ROS - General Review of Systems Constitutional: COMPLAINS OF: Fever, DENIES: Chills, Dizziness Eyes: DENIES: Vision loss Ears, nose, mouth, throat: DENIES: Hearing loss Respiratory: COMPLAINS OF: Shortness of breath, DENIES: Cough Cardiovascular: COMPLAINS OF: Lower Extremity Edema, DENIES: Chest pain, Palpitations Gastrointestinal: COMPLAINS OF: Abdominal pain, DENIES: Nausea, Vomiting Genitourinary: DENIES: Hematuria Musculoskeletal: DENIES: Back pain, Neck pain Integumentary: DENIES: Rash Neurologic: DENIES: Headache Psychiatric: DENIES: Confusion PFSH Past Family Social History Past Medical History Obesity Hypertension Hyperlipidemia Large Ventral hernia Recent hospitalization with SBO Past Surgical History Tonsillectomy and adenoidectomy D&C Reported Medications -Amlodipine 10 Mg PO DAILY -Lisinopril 20 Mg PO DAILY -Metoprolol Tartrate 25 Mg PO BID -Simvastatin 40 Mg PO HS ?Aspirin 650 Mg PO Q6H [place]-3 Fish Oil/Vitamin (Fish Oil-Cholecalciferol) 1,000-1,000 Mg Cap 1 Cap PO DAILY Dulcolax Stool Softener (Docusate Sodium) 100 Mg Cap 300 Mg PO DAILY B-12 (Cyanocobalamin) 2,000 Mcg Tab 2,000 Mcg PO DAILY Vitamin D3 (Cholecalciferol) 1,000 Unit Cap 1,000 Units PO DAILY Allergies: Coded Allergies: amoxicillin (Unverified Allergy, Severe, Swelling, 01/26/17) Family History Noncontributory Social History Denies tobacco or illicit drug use She does drink alcohol but relatively rarely Has no biological children Works locally at a [employer] Physical Exam Vital Signs Vital Signs Date Time Temp Pulse Resp B/P (MAP) Pulse Ox O2 Delivery O2 Flow Rate FiO2 01/27/17 16:00 97.0 112 18 110/56 (74) 95 01/27/17 12:00 97.8 108 19 121/69 (86) 97 01/27/17 09:49 95 Simple Mask 7.00 01/27/17 08:15 Simple Mask 7.00 01/27/17 08:00 100.2 102 19 98/61 (73) 97 01/27/17 07:36 97 Simple Mask 7.00 01/27/17 06:30 18 01/27/17 03:28 96.8 103 18 115/47 (69) 95 01/27/17 03:14 95 Mask 7.00 01/26/17 23:09 96.4 115 18 100/55 (70) 93 01/26/17 22:13 18 01/26/17 21:45 96.7 101 18 112/58 (76) 93 01/26/17 21:21 98.1 104 20 104/54 (71) 91 Nasal Cannula 4 01/26/17 21:15 104 20 104/54 (71) 91 Nasal Cannula 4 01/26/17 21:00 109 20 98/51 (67) 95 Bi-Pap 100 01/26/17 20:45 103 20 104/52 (69) 95 Bi-Pap 100 01/26/17 20:30 109 20 103/54 (70) 93 Bi-Pap 100 01/26/17 20:28 16 01/26/17 20:19 95 100 01/26/17 20:19 91 Non-Rebreather 15.00 100 01/26/17 20:15 110 20 119/57 (77) 91 Simple Mask 6 01/26/17 20:00 110 20 114/61 (78) 82 Simple Mask 6 01/26/17 19:47 98.1 118 20 124/89 (101) 88 Simple Mask 6 Physical Exam HEENT/Neuro: No pallor or icterus, tongue moist, DIMITRY, Awake alert oriented 3 , nonfocal grossly, moving all 4 extremities Neck: JVD difficult to assess due to body habitus. Chest/pulmonary: Air entry decreased bilaterally at bases, no wheezing or crackles. Scattered rhonchi Cardiovascular: S1-S2 regular no gallop or murmur GI/abdomen: Soft, abdominal binder in place, LEIF drains 2 with minimal bloody drainage, bowel sounds not appreciated Extremities: Warm bilaterally, no edema Laboratory Laboratory Tests Test 01/27/17 05:21 White Blood Count 12.6 Red Blood Count 3.77 Hemoglobin 11.3 Hematocrit 33.5 Mean Corpuscular Volume 88.9 Mean Corpuscular Hemoglobin 30.0 Mean Corpuscular Hemoglobin Concent 33.7 Red Cell Distribution Width 13.2 Platelet Count 340 Mean Platelet Volume 7.5 Neutrophils (%) (Auto) 85.2 Lymphocytes (%) (Auto) 6.5 Monocytes (%) (Auto) 8.1 Eosinophils (%) (Auto) 0.0 Basophils (%) (Auto) 0.2 Neutrophils # (Auto) 10.7 Lymphocytes # (Auto) 0.8 Monocytes # (Auto) 1.0 Eosinophils # (Auto) 0.0 Basophils # (Auto) 0.0 CBC Comment DIFF FINAL Differential Comment Blood Urea Nitrogen 18 Creatinine 0.90 Random Glucose 167 Calcium Level 8.1 Sodium Level 141 Potassium Level 4.5 Chloride Level 110 Carbon Dioxide Level 24.2 Anion Gap 7 Estimat Glomerular Filtration Rate 64 Result Diagram: 01/27/17 0521 01/27/17 0521 Imaging Last Impressions Chest X-Ray 01/27/17 0000 Signed Impressions: Service Date/Time: Friday, January 27, 2017 17:36 - CONCLUSION: No significant change has occurred. Sabino Stokes MD CT Angiography 01/27/17 0000 Signed Impressions: Service Date/Time: Sunday, January 27, 2017 18:20 - CONCLUSION: No evidence of pulmonary embolism. Basilar infiltrates. Prominent left axillary lymph node Carlitos Murrieta MD Septic Shock Reassessment Heart: Regular rate and rhythm Lungs: Clear Skin: Warm Peripheral Pulses: Bounding Right Radial Capillary Refill: Brisk Assessment and Plan Assessment and Plan 61-year-old female with: ventral hernia repair with mesh, abdominal wall reconstruction with panniculectomy (01/26) Acute respiratory failure Left basilar pneumonia Suspected sepsis Morbid obesity History of hypertension Plan: Neuro: Continue morphine [employer], follow neuro status. Cardiovascular: Watch for hypotension. Received Lasix earlier. Check BNP. May need to continue fluids if blood pressure drops. Hold antihypertensives at this time. Pulmonary: Continue supplemental O2, bronchodilators, incentive spirometry. CT pulmonary angiogram negative for PE however did show left basilar consolidation. We'll initiate empiric Levaquin/ single dose of vancomycin after obtaining cultures. GI/liver: PO diet if respiratory status permits. Renal/: Strict intake output, monitor and replete electro lites, follow BUN/ creatinine. Received Lasix earlier. Had borderline blood pressures earlier however currently she is normotensive. We will attempt even to slightly negative fluid balance unless she develops hypotension. ID: Blood cultures ordered. Empiric Levaquin and single dose of vancomycin to cover for left lung base pneumonia/ possible sepsis. Follow lactic acid Endocrine: Watch for hyperglycemia, SSI for glycemic control if needed. Heme: Follow CBC Prophylaxis: SCDs. Subcutaneous Lovenox. Deon Peters MD Jan 27, 2017 19:49
[2017-01-27] MEDS ORDERED: RESP: ALBUTEROL 2.5 MG/IPRATROPIUM 0.5 MG NEB (PRN) NEB (20:00)
[2017-01-27] MEDS ORDERED: VANCOMYCIN INJ 1,400 MG in SODIUM CHLORID 0.9% 500 ML INJ 500 ML IV ONE (20:00)
[2017-01-27] MEDS: RESP: ALBUTEROL 2.5 MG/IPRATROPIUM 0.5 MG NEB (SCH) NEB (20:26)
[2017-01-27 20:30] LABS: AUTOMATED NEUTROPHIL # 9.8 TH/MM3 (1.8-7.7); BASOPHIL % 0.2 % (0.0-2.0); EOSINOPHIL % 0.3 % (0.0-4.0); HEMATOCRIT 34.1 % (35.0-46.0); HEMO FLAGS DIFF FINAL; LYMPH % 6.4 % (9.0-44.0); LYMPHOCYTE # 0.7 TH/MM3 (1.0-4.8); MEAN CELL VOLUME 88.7 FL (80.0-100.0); MEAN CORPUSCULAR HEMOGLOBIN 29.7 PG (27.0-34.0); MEAN CORPUSCULAR HGB CONC 33.5 % (32.0-36.0); MONO % 6.5 % (0.0-8.0); NEUT % 86.6 % (16.0-70.0); PLATELET COUNT 326 TH/MM3 (150-450); RED BLOOD COUNT 3.85 MIL/MM3 (4.00-5.30); RED CELL DISTRIBUTION WIDTH 13.4 % (11.6-17.2); WHITE BLOOD COUNT 11.3 TH/MM3 (4.0-11.0)
[2017-01-27 20:40] LABS: ANION GAP 7 MEQ/L (5-15); AST (GOT) 41 U/L (15-37); BICARBONATE 24.1 MEQ/L (21.0-32.0); BLOOD UREA NITROGEN 16 MG/DL (7-18); CHLORIDE 109 MEQ/L (98-107); GLOMERULAR FILTRATION RATE 81 ML/MIN (>89); SODIUM (NA) 140 MEQ/L (136-145)
[2017-01-27 20:41] LABS: ALT (GPT) 18 U/L (10-53)
[2017-01-27 20:44] LABS: ALKALINE PHOSPHATASE 67 U/L (45-117); TOTAL BILIRUBIN ADULT 0.4 MG/DL (0.2-1.0)
[2017-01-28] VITALS (13 sets, daily range): BP systolic 107–117; BP diastolic 51–59; PULSE 86–102; RESP 17–21; TEMP 98–98.9; O2SAT 94–99
[2017-01-28] MEDS: ONDANSETRON HCL 4 MG/2 ML VIAL IV PUSH PRN ×2 (02:00→06:31)
[2017-01-28] MEDS: ACETAMINOPHEN/HYDROcodone 325 MG/5 MG TAB PO PRN ×5 (02:00→20:23)
[2017-01-28] MEDS: RESP: ALBUTEROL 2.5 MG/IPRATROPIUM 0.5 MG NEB (SCH) NEB ×4 (04:10→21:45)
[2017-01-28 05:36] LABS: BICARBONATE 23.9 MEQ/L (21.0-32.0); MAGNESIUM 2.2 MG/DL (1.5-2.5); POTASSIUM 4.1 MEQ/L (3.5-5.1)
--- NOTE | 2017-01-28 05:57 | EKG ---
Date Performed: 01/27/2017 Time Performed: 17:54:43 PTAGE: 61 years EKG: sinus TACHYCARDIA POSSIBLE ANTERIOR MYOCARDIAL INFARCTION , PROBABLY OLD ABNORMAL RHYTHM EC G PREVIOUS TRACING : 08/28/2011 03.48 DOCTOR: Mark Salas Interpretating Date/Time 01/28/2017 05:54:33
[2017-01-28] MEDS: PCA - TOTAL MG MORPHINE DELIVERED PER SHIFT SCH ×3 (06:00→22:00)
[2017-01-28 06:10] LABS: AUTOMATED NEUTROPHIL # 7.9 TH/MM3 (1.8-7.7); BASOPHIL % 0.3 % (0.0-2.0); EOSINOPHIL % 0.5 % (0.0-4.0); HEMATOCRIT 33.1 % (35.0-46.0); HEMO FLAGS DIFF FINAL; LYMPH % 11.1 % (9.0-44.0); LYMPHOCYTE # 1.1 TH/MM3 (1.0-4.8); MEAN CELL VOLUME 89.8 FL (80.0-100.0); MEAN CORPUSCULAR HEMOGLOBIN 30.6 PG (27.0-34.0); MEAN CORPUSCULAR HGB CONC 34.1 % (32.0-36.0); MONO % 6.3 % (0.0-8.0); NEUT % 81.8 % (16.0-70.0); PLATELET COUNT 262 TH/MM3 (150-450); RED BLOOD COUNT 3.69 MIL/MM3 (4.00-5.30); RED CELL DISTRIBUTION WIDTH 13.4 % (11.6-17.2); WHITE BLOOD COUNT 9.7 TH/MM3 (4.0-11.0)
[2017-01-28] MEDS: INSULIN NovoLIN REGULAR SUPPLEMENTAL SCALE SQ SCH ×4 (08:00→20:26)
[2017-01-28] MEDS: DOCUSATE SODIUM 100 MG CAP PO SCH ×2 (08:34→20:23)
[2017-01-28] MEDS: SODIUM CHLORIDE 0.9% FLUSH 10 ML FLUSH IV FLUSH SCH ×2 (08:34→20:24)
[2017-01-28 08:52] LABS: BACTERIA, URINE OCC /hpf; BLOOD, URINE SMALL (NEG); COMMENT (UR) CULTURE INDICATED; CULTURE IF INDICATED CULTURE INDICATED; GLUCOSE,URINE NEG (NEG); KETONE, URINE NEG (NEG); MUCUS URINE FEW /lpf (OCC); NITRITE,URINE NEG (NEG); URINE COLOR YELLOW (YELLW/STRAW)
--- NOTE | 2017-01-28 11:16 | HHI.CCPN ---
Subjective Remarks/Hospital Course 61-year-old old morbidly obese female with a medical history significant for hypertension, large ventral hernia and recurrent SBO who underwent ventral hernia repair with mesh abdominal wall reconstruction with panniculectomy on 01/26/[address] Díaz a general anesthesia, tolerated procedure well, required BiPAP in PACU and was subsequently weaned down to 4 L simple mask and transferred to the floor. Patient has been on a morphine [employer] and continued to have trouble with her breathing with O2 requirement increasing some liters simple mask however stated that she could not take deep breaths because of pain. She did have a temperature this morning of 100.2 and had borderline blood pressures as well as tachycardia with heart rate in the 100-110 range. Patient was evaluated by Dr. Pearson earlier and was ordered 20 mg Lasix IV. Patient subsequently underwent a CT pulmonary angiogram which was negative for PE however did show left lung base consolidation. Patient was transferred to the ICU and critical care consult was requested by Dr. Díaz. Stat labs ordered during transfer are still pending. I evaluated the patient following her arrival to the ICU. At that time she was on 10 L simple mask with a temperature of 98.8, heart rate 108, blood pressure 132/59, O2 sat 96%. She appeared comfortably laying in bed and was not in any acute distress. She denied any chest pain. She stated that her breathing appears slightly better. History was obtained by reviewing records and discussion with nursing staff and Dr. Pearson who has evaluated the patient earlier. 1008: Breathing quite comfortably on 5 liters this morning while laying supine. Objective Vital Signs Date Time Temp Pulse Resp B/P (MAP) Pulse Ox O2 Delivery O2 Flow Rate FiO2 01/28/17 10:00 98 01/28/17 09:12 95 Simple Mask 6.00 01/28/17 08:00 98.9 17 107/56 (73) 01/26/17 21:00 100 Intake and Output 01/28/17 01/28/17 01/29/17 08:00 16:00 00:00 Intake Total 772 ml Output Total 2012 ml Balance -1240 ml Result Diagram: 01/28/17 0442 01/28/17 0442 Other Results Laboratory Tests Test 01/27/17 19:19 Blood Gas Puncture Site RT RADIAL Blood Gas Patient Temperature 98.6 Blood Gas HCO3 24 mmol/L (22-26) Blood Gas Base Excess -0.8 mmol/L (-2-2) Blood Gas Oxygen Saturation 95 % (90-100) Arterial Blood pH 7.37 (7.380-7.420) Arterial Blood Partial Pressure CO2 42 mmHg (38-42) Arterial Blood Partial Pressure O2 86 mmHg (61-120) Arterial Blood Oxygen Content 16.2 Vol % (12.0-20.0) Arterial Blood Carboxyhemoglobin 1.4 % (0-4) Arterial Blood Methemoglobin 0.9 % (0-2) Blood Gas Hemoglobin 12.1 G/DL (12.0-16.0) Oxygen Delivery Device SIMPLE MASK Blood Gas Liter Flow 10 L/M Imaging Last Impressions Chest X-Ray 01/27/17 0000 Signed Impressions: Service Date/Time: Friday, January 27, 2017 17:36 - CONCLUSION: No significant change has occurred. Sabino Stokes MD CT Angiography 01/27/17 0000 Signed Impressions: Service Date/Time: Friday, January 27, 2017 18:20 - CONCLUSION: No evidence of pulmonary embolism. Basilar infiltrates. Prominent left axillary lymph node Carlitos Murrieta MD Objective Remarks Gen: NAD, comfortable. Neck: JVD difficult to assess due to body habitus. Chest/pulmonary: Air entry decreased bilaterally at bases, no wheezing or crackles. Few rhonchi Cardiovascular: S1-S2 regular no gallop or murmur GI/abdomen: Soft, abdominal binder in place, LEIF drains 2 with minimal bloody drainage, bowel sounds not appreciated Extremities: Warm bilaterally, no edema HEENT/Neuro: No pallor or icterus, tongue moist, DIMITRY, Awake alert oriented 3 , nonfocal grossly, moving all 4 extremities A/P Assessment and Plan 61-year-old female with: ventral hernia repair with mesh, abdominal wall reconstruction with panniculectomy (01/26) Acute respiratory failure Left basilar pneumonia Suspected sepsis Morbid obesity History of hypertension Plan: Neuro: Continue morphine [employer], follow neuro status. Cardiovascular: Watch for hypotension. Received Lasix earlier. Check BNP. May need to continue fluids if blood pressure drops. Hold antihypertensives at this time. Pulmonary: Continue supplemental O2, bronchodilators, incentive spirometry. CT pulmonary angiogram negative for PE however did show left basilar consolidation. We'll initiate empiric Levaquin/ single dose of vancomycin after obtaining cultures. GI/liver: Restart PO diet Renal/: Strict intake output, monitor and replete electro lytes, follow BUN/ creatinine. Received Lasix earlier. Had borderline blood pressures earlier however currently she is normotensive. We will attempt even to slightly negative fluid balance unless she develops hypotension. ID: Blood cultures ordered. Empiric Levaquin and single dose of vancomycin to cover for left lung base pneumonia/ possible sepsis. Follow lactic acid Endocrine: Watch for hyperglycemia, SSI for glycemic control if needed. Heme: Follow CBC Prophylaxis: SCDs. Subcutaneous Lovenox. Overall impression: Comfortable respiratory pattern this morning. Sanchez Brown MD Jan 28, 2017 11:16
--- NOTE | 2017-01-28 11:35 | HHI.PR ---
Subjective Subjective Notes The patient states that she is feeling somewhat better today. Her breathing is easier and less labored. She has not yet passed flatus but has had no nausea or emesis. Her pain is being well controlled with oral medication. Objective Vitals/I&O Vital Signs Date Time Temp Pulse Resp B/P (MAP) Pulse Ox O2 Delivery O2 Flow Rate FiO2 01/28/17 10:00 98 01/28/17 09:12 95 Simple Mask 6.00 01/28/17 08:00 98.9 17 107/56 (73) 01/26/17 21:00 100 Labs Laboratory Tests Test 01/27/17 19:19 01/27/17 19:45 01/27/17 19:50 01/28/17 04:42 Blood Gas Puncture Site RT RADIAL Blood Gas Patient Temperature 98.6 Blood Gas HCO3 24 Blood Gas Base Excess -0.8 Blood Gas Oxygen Saturation 95 Arterial Blood pH 7.37 Arterial Blood Partial Pressure CO2 42 Arterial Blood Partial Pressure O2 86 Arterial Blood Oxygen Content 16.2 Arterial Blood Carboxyhemoglobin 1.4 Arterial Blood Methemoglobin 0.9 Blood Gas Hemoglobin 12.1 Oxygen Delivery Device SIMPLE MASK Blood Gas Liter Flow 10 Blood Urea Nitrogen 16 12 Creatinine 0.73 0.68 Random Glucose 131 123 Total Protein 5.8 Albumin 2.6 Calcium Level 8.1 8.0 Alkaline Phosphatase 67 Aspartate Amino Transf (AST/SGOT) 41 Alanine Aminotransferase (ALT/SGPT) 18 Total Bilirubin 0.4 Sodium Level 140 141 Potassium Level 4.0 4.1 Chloride Level 109 109 Carbon Dioxide Level 24.1 23.9 Anion Gap 7 8 Estimat Glomerular Filtration Rate 81 88 White Blood Count 11.3 9.7 Red Blood Count 3.85 3.69 Hemoglobin 11.4 11.3 Hematocrit 34.1 33.1 Mean Corpuscular Volume 88.7 89.8 Mean Corpuscular Hemoglobin 29.7 30.6 Mean Corpuscular Hemoglobin Concent 33.5 34.1 Red Cell Distribution Width 13.4 13.4 Platelet Count 326 262 Mean Platelet Volume 7.3 7.6 Neutrophils (%) (Auto) 86.6 81.8 Lymphocytes (%) (Auto) 6.4 11.1 Monocytes (%) (Auto) 6.5 6.3 Eosinophils (%) (Auto) 0.3 0.5 Basophils (%) (Auto) 0.2 0.3 Neutrophils # (Auto) 9.8 7.9 Lymphocytes # (Auto) 0.7 1.1 Monocytes # (Auto) 0.7 0.6 Eosinophils # (Auto) 0.0 0.0 Basophils # (Auto) 0.0 0.0 CBC Comment DIFF FINAL DIFF FINAL Differential Comment Lactic Acid Level 0.8 B-Type Natriuretic Peptide 54 Magnesium Level 2.2 Test 01/28/17 06:15 01/28/17 08:00 Nasal Screen MRSA (PCR) MRSA NOT DETECTED Urine Color YELLOW Urine Turbidity CLEAR Urine pH 5.0 Urine Specific [place] 1.028 Urine Protein NEG Urine Glucose (UA) NEG Urine Ketones NEG Urine Occult Blood SMALL Urine Nitrite NEG Urine Bilirubin NEG Urine Urobilinogen LESS THAN 2.0 Urine Leukocyte Esterase MOD Urine RBC 5 Urine WBC 9 Urine WBC Clumps RARE Urine Bacteria OCC Urine Mucus FEW Microscopic Urinalysis Comment CULTURE INDICATED Date/Time Source Procedure Growth Status 01/27/17 19:50 Blood Peripheral Aerobic Blood Culture - Preliminary NO GROWTH IN 1 DAY Resulted 01/27/17 19:50 Blood Peripheral Anaerobic Blood Culture - Preliminary NO GROWTH IN 1 DAY Resulted 01/28/17 08:00 Urine Clean Catch Urine Culture Pending Received Cardiovascular: Regular Lungs: Clear Abdomen: Non-distended, Post-op tenderness Extremities: No edema A/P Assessment and Plan Impression: postop day #2 status post exploratory laparotomy with reduction of incarcerated abdominal wall hernia and abdominal wall hernia repair. She is stable and gradually improving. There was no evidence of pulmonary embolism on the CTA. Plan: She will continue to receive respiratory support for the present. She should be out of bed ambulating as much as possible to aid in her recovery. Bebeto Kumari MD Jan 28, 2017 11:34
[2017-01-28] MEDS: ENOXAPARIN SODIUM 40 MG/0.4 ML SYRINGE SQ SCH (19:02)
[2017-01-28] MEDS: LEVOFLOXACIN 750 MG PREMIX INJ 150 ML IV SCH (20:23)
[2017-01-29] VITALS (11 sets, daily range): BP systolic 109–131; BP diastolic 58–64; PULSE 85–100; RESP 14–19; TEMP 97.9–98.8; O2SAT 93–100
[2017-01-29] MEDS: ACETAMINOPHEN/HYDROcodone 325 MG/5 MG TAB PO PRN ×6 (00:34→22:27)
[2017-01-29] MEDS: RESP: ALBUTEROL 2.5 MG/IPRATROPIUM 0.5 MG NEB (SCH) NEB ×4 (03:53→22:15)
[2017-01-29] MEDS: PCA - TOTAL MG MORPHINE DELIVERED PER SHIFT SCH ×3 (05:07→21:36)
[2017-01-29] MEDS: INSULIN NovoLIN REGULAR SUPPLEMENTAL SCALE SQ SCH ×4 (08:00→20:31)
[2017-01-29] MEDS: DOCUSATE SODIUM 100 MG CAP PO SCH ×2 (09:00→20:26)
[2017-01-29] MEDS: SODIUM CHLORIDE 0.9% FLUSH 10 ML FLUSH IV FLUSH SCH ×2 (09:00→20:26)
--- NOTE | 2017-01-29 12:11 | HHI.PR ---
Subjective Subjective Notes Mild nausea. Pain controlled with oral meds. Has not been OOB. Tolerating clears. Objective Vitals/I&O Vital Signs Date Time Temp Pulse Resp B/P (MAP) Pulse Ox O2 Delivery O2 Flow Rate FiO2 01/29/17 09:29 98 Nasal Cannula 3.00 01/29/17 05:07 18 01/29/17 04:00 98.2 85 118/58 (78) 01/26/17 21:00 100 Labs Date/Time Source Procedure Growth Status 01/27/17 19:50 Blood Peripheral Aerobic Blood Culture - Preliminary NO GROWTH IN 2 DAYS Resulted 01/27/17 19:50 Blood Peripheral Anaerobic Blood Culture - Preliminary NO GROWTH IN 2 DAYS Resulted 01/28/17 08:00 Urine Clean Catch Urine Culture Pending Received Narrative Exam NAD nonlabored breathing, sats low 90s on O2 Abd: bandages and binder in place. Mild distention. Zapata clear adequate UOP LEIF drains min ss output A/P Assessment and Plan 61 yo F POD 3 s/p VHR, panniculectomy. Consult PT OOB. Fulls. Cont LEIF drains. Alex Gaona MD Jan 29, 2017 12:11
--- NOTE | 2017-01-29 13:22 | HHI.CCPN ---
Subjective Remarks/Hospital Course 61-year-old old morbidly obese female with a medical history significant for hypertension, large ventral hernia and recurrent SBO who underwent ventral hernia repair with mesh abdominal wall reconstruction with panniculectomy on 01/26/[address] Díaz a general anesthesia, tolerated procedure well, required BiPAP in PACU and was subsequently weaned down to 4 L simple mask and transferred to the floor. 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 She did have a temperature this morning of 100.2 and had borderline blood pressures as well as tachycardia with heart rate in the 100-110 range. Patient was evaluated by Dr. Pearson earlier and was ordered 20 mg Lasix IV. Patient subsequently underwent a CT pulmonary angiogram which was negative for PE however did show left lung base consolidation. Patient was transferred to the ICU and critical care consult was requested by Dr. Díaz. Stat labs ordered during transfer are still pending. I evaluated the patient following her arrival to the ICU. At that time she was on 10 L simple mask with a temperature of 98.8, heart rate 108, blood pressure 132/59, O2 sat 96%. She appeared comfortably laying in bed and was not in any acute distress. She denied any chest pain. She stated that her breathing appears slightly better. History was obtained by reviewing records and discussion with nursing staff and Dr. Pearson who has evaluated the patient earlier. 01/28: Breathing quite comfortably on 5 liters this morning while laying supine. 01/29: Breathing comfortably on 3 Liters O2. Some bowel activity, tolerating liquids. Objective Vital Signs Date Time Temp Pulse Resp B/P (MAP) Pulse Ox O2 Delivery O2 Flow Rate FiO2 01/29/17 09:29 98 Nasal Cannula 3.00 01/29/17 05:07 18 01/29/17 04:00 98.2 85 118/58 (78) 01/26/17 21:00 100 Intake and Output 01/29/17 01/29/17 01/30/17 08:00 16:00 00:00 Intake Total 308 ml Output Total 430 ml Balance -122 ml Result Diagram: 01/28/17 0442 01/28/17 0442 Imaging Last Impressions Chest X-Ray 01/27/17 0000 Signed Impressions: Service Date/Time: Friday, January 27, 2017 17:36 - CONCLUSION: No significant change has occurred. Sabino Stokes MD CT Angiography 01/27/17 0000 Signed Impressions: Service Date/Time: Friday, January 27, 2017 18:20 - CONCLUSION: No evidence of pulmonary embolism. Basilar infiltrates. Prominent left axillary lymph node Carlitos Murrieta MD Objective Remarks Gen: NAD, comfortable. Neck: JVD difficult to assess due to body habitus. Chest/pulmonary: Air entry decreased bilaterally at bases, no wheezing or crackles. 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 Cardiovascular: Watch for hypotension. Received Lasix earlier. Check BNP. May need to continue fluids if blood pressure drops. Hold antihypertensives at this time. Pulmonary: Continue supplemental O2, bronchodilators, incentive spirometry. CT pulmonary angiogram negative for PE however did show left basilar consolidation. We'll initiate empiric Levaquin/ single dose of vancomycin after obtaining cultures. GI/liver: Restart PO diet Renal/: Strict intake output, monitor and replete electro lytes, follow BUN/ creatinine. Received Lasix earlier. Had borderline blood pressures earlier however currently she is normotensive. We will attempt even to slightly negative fluid balance unless she develops hypotension. ID: Blood cultures ordered. Empiric Levaquin and single dose of vancomycin to cover for left lung base pneumonia/ possible sepsis. Follow lactic acid Endocrine: Watch for hyperglycemia, SSI for glycemic control if needed. Heme: Follow CBC Prophylaxis: SCDs. Subcutaneous Lovenox. Overall impression: Comfortable respiratory pattern, transfer to floor. Sanchez Brown MD Jan 29, 2017 13:22
[2017-01-29] MEDS: ENOXAPARIN SODIUM 40 MG/0.4 ML SYRINGE SQ SCH (19:20)
[2017-01-29] MEDS: LEVOFLOXACIN 750 MG PREMIX INJ 150 ML IV SCH (20:26)
[2017-01-30] VITALS (7 sets, daily range): BP systolic 131–161; BP diastolic 63–97; PULSE 94–110; RESP 17–21; TEMP 96.6–97.9; O2SAT 93–97
[2017-01-30] MEDS: ACETAMINOPHEN/HYDROcodone 325 MG/5 MG TAB PO PRN ×6 (02:32→22:17)
[2017-01-30] MEDS: RESP: ALBUTEROL 2.5 MG/IPRATROPIUM 0.5 MG NEB (SCH) NEB ×4 (04:39→21:32)
[2017-01-30] MEDS: PCA - TOTAL MG MORPHINE DELIVERED PER SHIFT SCH (05:50)
[2017-01-30] MEDS: INSULIN NovoLIN REGULAR SUPPLEMENTAL SCALE SQ SCH ×4 (08:00→20:59)
[2017-01-30] MEDS: DOCUSATE SODIUM 100 MG CAP PO SCH ×3 (08:09→22:20)
[2017-01-30] MEDS: SODIUM CHLORIDE 0.9% FLUSH 10 ML FLUSH IV FLUSH SCH ×2 (08:10→20:47)
--- NOTE | 2017-01-30 08:33 | HHI.PR ---
Subjective Subjective Notes + flatus. Pain is controlled. Objective Vitals/I&O Vital Signs Date Time Temp Pulse Resp B/P (MAP) Pulse Ox O2 Delivery O2 Flow Rate FiO2 01/30/17 08:00 97.2 94 18 139/63 (88) 94 01/29/17 22:17 Nasal Cannula 5.00 01/26/17 21:00 100 Labs Date/Time Source Procedure Growth Status 01/27/17 19:50 Blood Peripheral Aerobic Blood Culture - Preliminary NO GROWTH IN 2 DAYS Resulted 01/27/17 19:50 Blood Peripheral Anaerobic Blood Culture - Preliminary NO GROWTH IN 2 DAYS Resulted 01/28/17 08:00 Urine Clean Catch Urine Culture - Preliminary NO GROWTH IN 24 HOURS. Resulted Narrative Exam NAD Abd: incisions intact and clean, no necrosis Zapata clear adequate UOP LEIF drains min ss output A/P Assessment and Plan 61 yo F POD 4 s/p VHR, panniculectomy. Consult PT OOB. Fulls. Cont LEIF drains. Cont Zapata Jimenez,Alex DEL RIO Jan 30, 2017 08:33
--- NOTE | 2017-01-30 14:49 | HHI.PR ---
Subjective Remarks (+) flatus Pt's pain is controlled. Objective Vitals Vital Signs Date Time Temp Pulse Resp B/P (MAP) Pulse Ox O2 Delivery O2 Flow Rate FiO2 01/30/17 12:00 97.9 104 17 154/72 (99) 93 01/30/17 11:33 18 01/30/17 09:11 97 Nasal Cannula 5.00 01/30/17 08:10 94 Nasal Cannula 5.00 Humidified 01/30/17 08:00 97.2 94 18 139/63 (88) 94 01/30/17 00:26 97.9 100 20 137/97 (110) 97 01/29/17 23:27 17 01/29/17 22:17 95 Nasal Cannula 5.00 01/29/17 20:23 98.8 100 16 131/64 (86) 94 01/29/17 20:20 Nasal Cannula 5.00 01/29/17 18:00 96 01/29/17 16:00 90 01/29/17 16:00 98.0 94 14 126/60 (82) 96 Result Diagram: 01/28/1744101/28/17441 Imaging CXR (01/27/17): - Cardiomegaly, bilateral effusions and diffuse interstitial prominence suggesting congestive failure. Last Impressions Chest X-Ray 01/27/17 0000 Signed Impressions: Service Date/Time: Friday, January 27, 2017 17:36 - CONCLUSION: No significant change has occurred. Sabino Stokes MD CT Angiography 01/27/17 0000 Signed Impressions: Service Date/Time: Friday, January 27, 2017 18:20 - CONCLUSION: No evidence of pulmonary embolism. Basilar infiltrates. Prominent left axillary lymph node Carlitos Murrieta MD Objective Remarks GENERAL: This is a well-nourished, well-developed patient, in no apparent distress. CARDIOVASCULAR: Regular rate and rhythm without murmurs, gallops, or rubs. RESPIRATORY: Clear to auscultation. Breath sounds equal bilaterally. No wheezes , rales, or rhonchi. GASTROINTESTINAL: Abdomen soft, non-tender, nondistended. Normal active bowel sounds MUSCULOSKELETAL: Extremities without clubbing, cyanosis, or edema. NEURO: Alert & Oriented x4 to person, place, time, situation. Moves all ext x4 A/P Problem List: (1) Volume overload ICD Codes: E87.70 - Fluid overload, unspecified Status: Acute Plan: - 61 y/o female with HTN and large ventral hernia with recurrent SBO. She had two hospitalizations this year related to SBO, most recently was about 2 weeks ago. Pt improved with conservative measures at that time and was discharged to followup with General Surgery. - Pt was readmitted and underwent ventral hernia repair with mesh, abdominal wall reconstructions with panniculectomy on 01/26/[address] Rosas. - Pt transferred to [facility] POD #1 d/t volume overload and possible pneumonia - Pt was NOT intubated but did require BiPAP - Pt now stable on 4L NC - repeat CXR in AM - levaquin - duonebs q6h scheduled and prn - repeat CBC, BMP, Mag in AM - Supportive care (2) Ventral hernia ICD Codes: K43.9 - Ventral hernia without obstruction or gangrene Status: Chronic Plan: - norco/colace - See above. (3) Hypertension ICD Codes: I10 - Essential (primary) hypertension Status: Chronic Plan: - off home BP meds - overall normotensive, but now with occasional increased readings - prn PO Catapres - observe - may need to resume home BP medications (4) Hyperlipidemia ICD Codes: E78.5 - Hyperlipidemia, unspecified Status: Chronic Problem Qualifiers (1) Volume overload: Qualified Codes: E87.79 - Other fluid overload (2) Hyperlipidemia: Qualified Codes: E78.5 - Hyperlipidemia, unspecified Carlos Murray DO Jan 30, 2017 14:49
[2017-01-30] MEDS ORDERED: cloNIDine HCL 0.2 MG TAB PO PRN (15:00)
[2017-01-30] MEDS: ENOXAPARIN SODIUM 40 MG/0.4 ML SYRINGE SQ SCH ×2 (17:57→18:25)
[2017-01-30] MEDS: LEVOFLOXACIN 750 MG PREMIX INJ 150 ML IV SCH (20:59)
[2017-01-31] VITALS (8 sets, daily range): BP systolic 129–151; BP diastolic 61–83; PULSE 100–112; RESP 18–20; TEMP 97.1–98.8; O2SAT 92–97
[2017-01-31] MEDS: ACETAMINOPHEN/HYDROcodone 325 MG/5 MG TAB PO PRN ×5 (02:44→18:35)
[2017-01-31] MEDS: RESP: ALBUTEROL 2.5 MG/IPRATROPIUM 0.5 MG NEB (SCH) NEB ×4 (04:42→21:48)
[2017-01-31] MEDS: DOCUSATE SODIUM 100 MG CAP PO SCH ×2 (07:36→21:45)
[2017-01-31] MEDS: SODIUM CHLORIDE 0.9% FLUSH 10 ML FLUSH IV FLUSH SCH ×3 (07:36→21:40)
[2017-01-31] MEDS: INSULIN NovoLIN REGULAR SUPPLEMENTAL SCALE SQ SCH ×4 (07:36→21:39)
[2017-01-31 10:08] LABS: AUTOMATED NEUTROPHIL # 5.5 TH/MM3 (1.8-7.7); BASOPHIL % 0.6 % (0.0-2.0); EOSINOPHIL # 0.1 TH/MM3 (0-0.4); EOSINOPHIL % 1.7 % (0.0-4.0); HEMATOCRIT 34.1 % (35.0-46.0); HEMO FLAGS DIFF FINAL; LYMPH % 12.9 % (9.0-44.0); LYMPHOCYTE # 0.9 TH/MM3 (1.0-4.8); MEAN CORPUSCULAR HGB CONC 33.7 % (32.0-36.0); MONO % 4.5 % (0.0-8.0); NEUT % 80.3 % (16.0-70.0); PLATELET COUNT 281 TH/MM3 (150-450); RED BLOOD COUNT 3.83 MIL/MM3 (4.00-5.30); RED CELL DISTRIBUTION WIDTH 13.3 % (11.6-17.2); WHITE BLOOD COUNT 6.8 TH/MM3 (4.0-11.0)
[2017-01-31 10:41] LABS: BICARBONATE 26.7 MEQ/L (21.0-32.0); POTASSIUM 3.4 MEQ/L (3.5-5.1)
--- NOTE | 2017-01-31 11:21 | RADRPT ---
EXAM DATE/TIME: 01/31/2017 09:43 [facility] COMPARISON: CHEST SINGLE AP, January 27, 2017, 17:36. INDICATIONS : Pneumonia. MEDICAL HISTORY : Cardiovascular disease. Hypertension. SURGICAL HISTORY : Hernia repair. ENCOUNTER: Subsequent ACUITY: 4 - 6 days PAIN SCORE: 0/10 LOCATION: Bilateral chest FINDINGS: Patchy airspace disease is present in the right upper lobe and left base. Bronchograms are present i n the left base. The heart is minimally enlarged without failure. The portion of the bony skeleton v isualized is unremarkable. CONCLUSION: Airspace disease as described above. Findings have progressed right upper lobe. Levi Archuleta MD FACR on January 31, 2017 at 11:19 Board Certified Radiologist. This report was verified electronically.
[2017-01-31] MEDS ORDERED: MAGNESIUM HYDROXIDE SUSP 30 ML CUP PO ONE (15:15)
--- NOTE | 2017-01-31 15:16 | HHI.PR ---
Subjective Subjective Notes + flatus no bm. Pain controlled. Has been out of bed using walker for ambulation. Objective Vitals/I&O Vital Signs Date Time Temp Pulse Resp B/P (MAP) Pulse Ox O2 Delivery O2 Flow Rate FiO2 01/31/17 12:00 98.8 102 18 142/65 (90) 92 01/31/17 09:29 Nasal Cannula 3.00 Labs Laboratory Tests Test 01/31/17 08:19 White Blood Count 6.8 Red Blood Count 3.83 Hemoglobin 11.5 Hematocrit 34.1 Mean Corpuscular Volume 89.0 Mean Corpuscular Hemoglobin 30.0 Mean Corpuscular Hemoglobin Concent 33.7 Red Cell Distribution Width 13.3 Platelet Count 281 Mean Platelet Volume 7.3 Neutrophils (%) (Auto) 80.3 Lymphocytes (%) (Auto) 12.9 Monocytes (%) (Auto) 4.5 Eosinophils (%) (Auto) 1.7 Basophils (%) (Auto) 0.6 Neutrophils # (Auto) 5.5 Lymphocytes # (Auto) 0.9 Monocytes # (Auto) 0.3 Eosinophils # (Auto) 0.1 Basophils # (Auto) 0.0 CBC Comment DIFF FINAL Differential Comment Blood Urea Nitrogen 14 Creatinine 0.48 Random Glucose 137 Calcium Level 9.0 Magnesium Level 2.0 Sodium Level 137 Potassium Level 3.4 Chloride Level 103 Carbon Dioxide Level 26.7 Anion Gap 7 Estimat Glomerular Filtration Rate 131 Date/Time Source Procedure Growth Status 01/27/17 19:50 Blood Peripheral Aerobic Blood Culture - Preliminary NO GROWTH IN 4 DAYS Resulted 01/27/17 19:50 Blood Peripheral Anaerobic Blood Culture - Preliminary NO GROWTH IN 4 DAYS Resulted 01/28/17 08:00 Urine Clean Catch Urine Culture - Final NO GROWTH IN 48 HOURS. Complete Narrative Exam NAD Abd: soft, bandages in place LEIF drain min ss output A/P Assessment and Plan 61 yo F POD 5 s/p VHR, panniculectomy. Cont ambulation. regular diet Dc drains. Give one dose milk of mag. Likely dc to rehab tomorrow. Alex Gaona MD Jan 31, 2017 15:16
--- NOTE | 2017-01-31 15:55 | HHI.PR ---
Subjective Remarks No new complaints. (+) flatus No BM yet. Objective Vitals Vital Signs Date Time Temp Pulse Resp B/P (MAP) Pulse Ox O2 Delivery O2 Flow Rate FiO2 01/31/17 12:00 98.8 102 18 142/65 (90) 92 01/31/17 11:15 18 01/31/17 09:29 97 Nasal Cannula 3.00 01/31/17 08:00 97.1 100 18 129/66 (87) 94 01/31/17 08:00 94 Nasal Cannula 3.00 Humidified 01/31/17 04:43 97 Nasal Cannula 4.00 01/31/17 00:00 97.1 109 20 142/83 (102) 94 01/30/17 21:34 93 Nasal Cannula 4.00 01/30/17 20:40 Nasal Cannula 5.00 01/30/17 20:00 96.8 105 21 131/87 (102) 93 01/30/17 16:00 96.6 110 18 161/74 (103) 94 Result Diagram: 01/31/1781801/31/17818 Imaging CXR (01/27/17): - Cardiomegaly, bilateral effusions and diffuse interstitial prominence suggesting congestive failure. Last Impressions Chest X-Ray 01/27/17 0000 Signed Impressions: Service Date/Time: Friday, January 27, 2017 17:36 - CONCLUSION: No significant change has occurred. Sabino Stokes MD CT Angiography 01/27/17 0000 Signed Impressions: Service Date/Time: Friday, January 27, 2017 18:20 - CONCLUSION: No evidence of pulmonary embolism. Basilar infiltrates. Prominent left axillary lymph node aCrlitos Murrieta MD Objective Remarks GENERAL: This is a well-nourished, well-developed patient, in no apparent distress. CARDIOVASCULAR: Regular rate and rhythm without murmurs, gallops, or rubs. RESPIRATORY: Clear to auscultation. Breath sounds equal bilaterally. No wheezes , rales, or rhonchi. GASTROINTESTINAL: Abdomen soft, non-tender, nondistended. Normal active bowel sounds MUSCULOSKELETAL: Extremities without clubbing, cyanosis, or edema. NEURO: Alert & Oriented x4 to person, place, time, situation. Moves all ext x4 A/P Problem List: (1) Volume overload ICD Codes: E87.70 - Fluid overload, unspecified Status: Acute Plan: - 61 y/o female with HTN and large ventral hernia with recurrent SBO. She had two hospitalizations this year related to SBO, most recently was about 2 weeks ago. Pt improved with conservative measures at that time and was discharged to followup with General Surgery. - Pt was readmitted and underwent ventral hernia repair with mesh, abdominal wall reconstructions with panniculectomy on 01/26/[address] Rosas. - Pt transferred to [facility] POD #1 d/t volume overload and possible pneumonia - Pt was NOT intubated but did require BiPAP - Pt now stable on 3L NC - CXR (01/31/17) infiltrate at RUL and LLL - levaquin - duonebs q6h scheduled and prn - Supportive care (2) Ventral hernia ICD Codes: K43.9 - Ventral hernia without obstruction or gangrene Status: Chronic Plan: - norco/colace - See above. (3) Hypertension ICD Codes: I10 - Essential (primary) hypertension Status: Chronic Plan: - off home BP meds - overall normotensive, but now with occasional increased readings - prn PO Catapres - observe - may need to resume home BP medications (4) Hyperlipidemia ICD Codes: E78.5 - Hyperlipidemia, unspecified Status: Chronic Problem Qualifiers (1) Volume overload: Qualified Codes: E87.79 - Other fluid overload (2) Hyperlipidemia: Qualified Codes: E78.5 - Hyperlipidemia, unspecified Carlos Murray DO Jan 31, 2017 15:55
[2017-01-31] MEDS ORDERED: POTASSIUM CHLORIDE 20 MEQ CONTROLLED RELEASE TAB PO ONE (16:00)
[2017-01-31] MEDS: ENOXAPARIN SODIUM 40 MG/0.4 ML SYRINGE SQ SCH (18:30)
[2017-01-31] MEDS: LEVOFLOXACIN 750 MG PREMIX INJ 150 ML IV SCH (21:40)
[2017-02-01] VITALS: BP 119/66; PULSE 103; RESP 20; TEMP 98.2; O2SAT 96
[2017-02-01] MEDS: ACETAMINOPHEN/HYDROcodone 325 MG/5 MG TAB PO PRN ×3 (05:27→17:39)
[2017-02-01 08:00] VITALS: BP 102/76; PULSE 89; RESP 17; TEMP 96.6; O2SAT 97
[2017-02-01] MEDS: DOCUSATE SODIUM 100 MG CAP PO SCH ×2 (09:00→23:04)
[2017-02-01] MEDS: SODIUM CHLORIDE 0.9% FLUSH 10 ML FLUSH IV FLUSH SCH ×2 (09:59→23:05)
[2017-02-01] MEDS: INSULIN NovoLIN REGULAR SUPPLEMENTAL SCALE SQ SCH ×4 (11:20→21:00)
--- NOTE | 2017-02-01 11:36 | HHI.PR ---
Subjective Remarks Patient doing well Had BM today, reports positive flatus looking forward to going to rehab Objective Vitals Vital Signs Date Time Temp Pulse Resp B/P (MAP) Pulse Ox O2 Delivery O2 Flow Rate FiO2 02/01/17 09:59 97 Nasal Cannula 3.00 02/01/17 08:00 96.6 89 17 102/76 (85) 97 02/01/17 00:00 98.2 103 20 119/66 (83) 96 01/31/17 21:51 94 Nasal Cannula 3.00 01/31/17 21:30 94 Nasal Cannula 2.00 01/31/17 20:00 98.5 112 20 133/61 (85) 92 01/31/17 16:00 97.7 103 18 151/72 (98) 94 01/31/17 15:48 18 01/31/17 12:00 98.8 102 18 142/65 (90) 92 Result Diagram: 01/31/17 0819 01/31/17 0819 Other Results Laboratory Tests Test 01/31/17 08:19 White Blood Count 6.8 TH/MM3 Red Blood Count 3.83 MIL/MM3 Hemoglobin 11.5 GM/DL Hematocrit 34.1 % Mean Corpuscular Volume 89.0 FL Mean Corpuscular Hemoglobin 30.0 PG Mean Corpuscular Hemoglobin Concent 33.7 % Red Cell Distribution Width 13.3 % Platelet Count 281 TH/MM3 Mean Platelet Volume 7.3 FL Neutrophils (%) (Auto) 80.3 % Lymphocytes (%) (Auto) 12.9 % Monocytes (%) (Auto) 4.5 % Eosinophils (%) (Auto) 1.7 % Basophils (%) (Auto) 0.6 % Neutrophils # (Auto) 5.5 TH/MM3 Lymphocytes # (Auto) 0.9 TH/MM3 Monocytes # (Auto) 0.3 TH/MM3 Eosinophils # (Auto) 0.1 TH/MM3 Basophils # (Auto) 0.0 TH/MM3 CBC Comment DIFF FINAL Differential Comment Blood Urea Nitrogen 14 MG/DL Creatinine 0.48 MG/DL Random Glucose 137 MG/DL Calcium Level 9.0 MG/DL Magnesium Level 2.0 MG/DL Sodium Level 137 MEQ/L Potassium Level 3.4 MEQ/L Chloride Level 103 MEQ/L Carbon Dioxide Level 26.7 MEQ/L Anion Gap 7 MEQ/L Estimat Glomerular Filtration Rate 131 ML/MIN Imaging CXR (01/27/17): - Cardiomegaly, bilateral effusions and diffuse interstitial prominence suggesting congestive failure. Last Impressions Chest X-Ray 01/27/17 0000 Signed Impressions: Service Date/Time: Friday, January 27, 2017 17:36 - CONCLUSION: No significant change has occurred. Sabino Stokes MD CT Angiography 01/27/17 0000 Signed Impressions: Service Date/Time: Friday, January 27, 2017 18:20 - CONCLUSION: No evidence of pulmonary embolism. Basilar infiltrates. Prominent left axillary lymph node Carlitos Murrieta MD Objective Remarks GENERAL: This is a well-nourished, well-developed patient, in no apparent distress. CARDIOVASCULAR: Regular rate and rhythm without murmurs, gallops, or rubs. RESPIRATORY: Clear to auscultation. Breath sounds equal bilaterally. No wheezes , rales, or rhonchi. GASTROINTESTINAL: Abdomen soft, non-tender, nondistended. Normal active bowel sounds MUSCULOSKELETAL: Extremities without clubbing, cyanosis, or edema. NEURO: Alert & Oriented x4 to person, place, time, situation. Moves all ext x4 Procedures ventral hernia repair with mesh, abdominal wall reconstructions with panniculectomy on 01/26/[address] Rosas. A/P Problem List: (1) Volume overload ICD Codes: E87.70 - Fluid overload, unspecified Status: Acute Plan: - 61 y/o female with HTN and large ventral hernia with recurrent SBO. She had two hospitalizations this year related to SBO, most recently was about 2 weeks ago. Pt improved with conservative measures at that time and was discharged to followup with General Surgery. - Pt was readmitted and underwent ventral hernia repair with mesh, abdominal wall reconstructions with panniculectomy on 01/26/[address] Rosas. - Pt transferred to [facility] POD #1 d/t volume overload and possible pneumonia - Pt was NOT intubated but did require BiPAP - Pt now stable on 3L NC - CXR (01/31/17) infiltrate at RUL and LLL - levaquin (01/27/17 - present) - duonebs q6h scheduled and prn - Supportive care Patient recovering positive BM today, pos flatus, tolerable pain with [place] 5/ 325 PO as needed Cleared for DC recommending SNF Patient refusing SNF wants to go home with [facility] and reports she has a friend who will help care for her. (2) Ventral hernia ICD Codes: K43.9 - Ventral hernia without obstruction or gangrene Status: Chronic Plan: - norco/colace - See above. (3) Hypertension ICD Codes: I10 - Essential (primary) hypertension Status: Chronic Plan: - off home BP meds - overall normotensive, but now with occasional increased readings - prn PO Catapres - observe - may need to resume home BP medications at rehab (4) Hyperlipidemia ICD Codes: E78.5 - Hyperlipidemia, unspecified Status: Chronic Assessment and Plan Patient examined. Assessment and plan formulated with Lynn Phillips PA-C. I agree with the above. Problem Qualifiers (1) Volume overload: Qualified Codes: E87.79 - Other fluid overload (2) Hyperlipidemia: Qualified Codes: E78.5 - Hyperlipidemia, unspecified Lynn Phillips Feb 01, 2017 11:36 Carlos Murray DO Feb 04, 2017 00:02
[2017-02-01] MEDS ORDERED: HYDR-3516 PO (11:48)
--- NOTE | 2017-02-01 11:51 | HHI.DS ---
Discharge Summary Admission Date Jan 26, 2017 at 07:34 Discharge Date: Feb 01, 2017 Admitting Diagnosis Ventral hernia, large pannus Procedures ventral hernia repair, corset type panniculectomy Brief History 61 yo F with huge ventral hernia with recurrent small bowel obstructions with large pannus admitted for elective surgery. CBC/BMP: 01/31/17 0819 01/31/17 0819 Significant Findings Laboratory Tests Test 01/31/17 08:19 Red Blood Count 3.83 MIL/MM3 (4.00-5.30) Hemoglobin 11.5 GM/DL (11.6-15.3) Hematocrit 34.1 % (35.0-46.0) Neutrophils (%) (Auto) 80.3 % (16.0-70.0) Lymphocytes # (Auto) 0.9 TH/MM3 (1.0-4.8) Creatinine 0.48 MG/DL (0.50-1.00) Random Glucose 137 MG/DL (74-106) Potassium Level 3.4 MEQ/L (3.5-5.1) PE at Discharge NAD Abd: soft, inc c/d/i Nonlabored breathing Hospital Course Postoperatively had respiratory distress, transferred to [facility], placed on BIPAP. Received lasix. Resp status improved in 24-48 hrs and she was transferred to floor. She tolerated regular diet with pain controlled with oral meds. + BM. Placed on levaquin for pulmonary infiltrates. Pt Condition on Discharge: Good Discharge Instructions Follow up Referrals: PCP Follow-up - [address] Dhillon [facility]/ with [facility] - 1 Week with Deny Rosas MD New Medications: Hydrocodone-Acetaminophen (Hydrocodone-Acetaminophen) 5-325 mg Tab 1-2 TAB PO Q4H PRN for PAIN, #60 TAB Continued Medications: Cholecalciferol (Vitamin D3) 1,000 Unit Cap 1000 UNITS PO DAILY for Nutritional Supplement, #1 BOTTLE 0 Refills Cyanocobalamin (B-12) 2,000 Mcg Tab 2000 MCG PO DAILY for Nutritional Supplement, #1 BOTTLE 0 Refills Docusate Sodium (Dulcolax Stool Softener) 100 Mg Cap 300 MG PO DAILY for Prevent Constipation, #60 CAP 0 Refills Fish Oil-Cholecalciferol ([place]-3 Fish Oil/Vitamin) 1,000-1,000 Mg Cap 1 CAP PO DAILY for Nutritional Supplement, CAP 0 Refills Simvastatin (Simvastatin) 40 Mg Tab 40 MG PO HS for Cholesterol Management, #30 TAB 0 Refills Discontinued Medications: Amlodipine (Amlodipine) 10 Mg Tab 10 MG PO DAILY for Blood Pressure Management, #30 TAB 0 Refills Aspirin (Aspirin) 325 Mg Tab 650 MG PO Q6H for Pain Management, TAB 0 Refills Lisinopril (Lisinopril) 20 Mg Tab 20 MG PO DAILY, #30 TAB 0 Refills Metoprolol Tartrate (Metoprolol Tartrate) 25 Mg Tab 25 MG PO BID for Blood Pressure Management, #60 TAB 0 Refills Pantoprazole (Protonix) 40 Mg Tab 40 MG PO BID for Ulcer Prevention, #30 TAB 0 Refills Alex Gaona MD Feb 01, 2017 11:51
[2017-02-01 12:00] VITALS: BP 139/59; PULSE 111; RESP 17; TEMP 97.7; O2SAT 97
--- NOTE | 2017-02-01 12:41 | HHI.FF ---
Face to Face Verification Diagnosis: (1) Ventral hernia (2) Volume overload Physical Therapy Order: Evaluate and Treat, Strength and gait training Home Health Nursing Order: Medical education Signs/symptoms of disease process Oxygen administration education Medication education-adverse effect Nursing assessment with vital signs I have seen patient Lulu Prince on 02/01/17. My clinical findings support the need for the requested home health care services because: Ltd mobility limited ability to care for self Ltd mobility - disease progression Limited ability to care for self I certify that my clinical findings support that this patient is homebound because: Post-op weakness Post-op weakness Lynn Phillips Feb 01, 2017 12:41 Carlos Murray DO Feb 04, 2017 00:02
[2017-02-01 16:00] VITALS: BP 144/81; PULSE 102; RESP 18; TEMP 97; O2SAT 95
[2017-02-01] MEDS: ENOXAPARIN SODIUM 40 MG/0.4 ML SYRINGE SQ SCH (17:40)
[2017-02-01 17:53] VITALS: O2SAT 94
[2017-02-01 20:00] VITALS: BP 135/91; PULSE 106; RESP 18; TEMP 97.3; O2SAT 97
[2017-02-01] MEDS: LEVOFLOXACIN 750 MG PREMIX INJ 150 ML IV SCH (23:04)
[2017-02-02] VITALS: BP 138/75; PULSE 103; RESP 18; TEMP 97.8; O2SAT 97
[2017-02-02] MEDS: ACETAMINOPHEN/HYDROcodone 325 MG/5 MG TAB PO PRN ×2 (00:47→06:43)
[2017-02-02 08:00] VITALS: BP 139/67; PULSE 103; RESP 19; TEMP 96; O2SAT 95
[2017-02-02] MEDS: INSULIN NovoLIN REGULAR SUPPLEMENTAL SCALE SQ SCH (08:00)
[2017-02-02] MEDS: SODIUM CHLORIDE 0.9% FLUSH 10 ML FLUSH IV FLUSH SCH (09:00)
[2017-02-02] MEDS: DOCUSATE SODIUM 100 MG CAP PO SCH (09:00)
[2017-02-02] MEDS ORDERED: OXYGENDME NAS.CANULA (09:39)
[2017-02-02] MEDS ORDERED: OXYGENTANK NAS.CANULA (09:40)
== END 2017-02-02 12:51 | disposition home health service (06) | DRG 353 ==
LOC: HSDI 01-26 07:34 → N06B 01-26 21:43 → N03B 01-27 18:51 → N07B 01-29 19:47
PROVIDERS: ADMIT Surgery; ATTEND Surgery
PROC: 5A09357 Assistance with Respiratory Ventilation, Less than 24 Consecutive Hours, Continuous Positive Airway Pressure (ICD-10-PCS; 2017-01-26)
PROC: 0WUF0JZ Supplement Abdominal Wall with Synthetic Substitute, Open Approach (ICD-10-PCS; principal; 2017-01-26 12:59)
PROC: 0WBF0ZZ Excision of Abdominal Wall, Open Approach (ICD-10-PCS; 2017-01-26 12:59)
DX: K43.9 Ventral hernia without obstruction or gangrene (principal); J96.00 Acute respiratory failure, unspecified whether with hypoxia or hypercapnia; J18.9 Pneumonia, unspecified organism; E65 Localized adiposity; E87.70 Fluid overload, unspecified; I10 Essential (primary) hypertension; E66.9 Obesity, unspecified; Z68.34 Body mass index [BMI] 34.0-34.9, adult; E78.5 Hyperlipidemia, unspecified; I51.7 Cardiomegaly
CPT/HCPCS: 36600; 71010; 71020; 71275; 80048; 80053; 81001; 82805; 82948; 83605; 83735; 83880; 85025; 87040; 87086; 87641; 88302; 88305; 93005; 94150; 94620; 94640; 94664; 94762; C1781; J0131; J0690; J1100; J1170; J1650; J1940; J1956; J2250; J2270; J2370; J2405; J2710; J3010; J3370; J3480; J7040; J7050; J7120; J7613; J8501; Q9967

== ENCOUNTER 2017-01-11 12:42 | Inpatient (IN) | payer OTHER ==
[2017-01-11] VITALS (8 sets, daily range): BP systolic 144–178; BP diastolic 55–82; PULSE 74–82; RESP 16–20; TEMP 98.7–99.5; O2SAT 93–98
[~2017-01-11] VITALS: Ht 162.6 cm; Wt 97.2 kg
[~2017-01-11 12:42] MED LIST changes: +PANT40TA3 PO
[2017-01-11] MEDS ORDERED: SODIUM CHLOR 0.9% 1000 ML INJ 1,000 ML IV SCH (13:05)
[2017-01-11] MEDS ORDERED: MORPHINE SULFATE 4 MG/ML INJ IV PUSH ONE ×2 (13:15→18:15)
[2017-01-11] MEDS ORDERED: ONDANSETRON HCL 4 MG/2 ML VIAL IVP ONE (13:15)
[2017-01-11] MEDS ORDERED: SODIUM CHLORIDE 0.9% FLUSH 10 ML FLUSH IV FLUSH PRN (13:15)
--- NOTE | 2017-01-11 13:15 | PD ---
HPI Chief Complaint: Abdominal Pain Time Seen by Provider: 12:59 Travel History International Travel<30 days: No Contact w/Intl Traveler<30days: No Traveled to known affect area: No History of Present Illness HPI This is a 61-year-old female who presents to the emergency department with a known ventral hernia which is scheduled for repair with Dr. Rosas in early January who presents to the emergency department with 3 days of abdominal discomfort mostly in the left lower quadrant, intermittent, worse when she moves to the left side associated with nausea, 3 episodes of vomiting and constipation. Her last bowel movement was more than 48 hours ago. She says this feels similar to when she's had a bowel obstruction in the past. PFSH Past Medical History Cardiovascular Problems: Yes (htn on meds, states did not take meds today) High Cholesterol: Yes Diminished Hearing: No Gastrointestinal Disorders: Yes (GALBLADDER DISEASE) Hypertension: Yes Psychiatric: No Immunizations Current: Yes ?: Not Past Surgical History Gynecologic Surgery: Yes (D & C) Oral Surgery: Yes (TONSILLECTOMY CHILD) Other Surgery: Yes Social History Alcohol Use: Yes ("DRANK YESTERDAY") Tobacco Use: No Substance Use: No Allergies-Medications (Allergen,Severity, Reaction): Coded Allergies: amoxicillin (Unverified Allergy, Severe, Swelling, 01/11/17) Reported Meds & Prescriptions Reported Meds & Active Scripts Active Reported Amlodipine (Amlodipine Besylate) 10 Mg Tab 10 Mg PO DAILY Lisinopril 20 Mg Tab 20 Mg PO DAILY Metoprolol Tartrate 25 Mg Tab 25 Mg PO BID Simvastatin 40 Mg Tab 40 Mg PO HS Review of Systems Except as stated in HPI: all other systems reviewed are Neg Physical Exam Narrative GENERAL:Well appearing, no acute distress SKIN: Focused skin assessment warm and dry. HEAD: Atraumatic. Normocephalic. EYES: Pupils equal and round. No injection or drainage. ENT: Moist mucous membranes NECK: Trachea midline. CARDIOVASCULAR: Regular rate and rhythm. No murmur appreciated. RESPIRATORY: Clear to auscultation. Breath sounds equal bilaterally. GASTROINTESTINAL: Abdomen soft, large soft ventral hernia, tender to palpation in the left lower quadrant with no rebound or guarding. MUSCULOSKELETAL: No obvious deformities. NEUROLOGICAL: Awake and alert. No obvious cranial nerve deficits. Moving all extremities. PSYCHIATRIC: Appropriate mood and affect; insight and judgment normal. Data Data Last Documented VS Vital Signs Date Time Temp Pulse Resp B/P (MAP) Pulse Ox O2 Delivery O2 Flow Rate FiO2 01/11/17 15:44 74 17 154/68 (96) 94 Room Air 01/11/17 12:55 99.5 Orders Orders Complete Blood Count With Diff (01/11/17 13:05) Comprehensive Metabolic Panel (01/11/17 13:05) Lipase (01/11/17 13:05) Urinalysis - C+S If Indicated (01/11/17 13:05) Ct Abd/Pel W Iv Contrast(Rout) (01/11/17 13:05) Iv Access Insert/Monitor (01/11/17 13:05) Ecg Monitoring (01/11/17 13:05) Oximetry (01/11/17 13:05) Morphine Inj (Morphine Inj) (01/11/17 13:15) Ondansetron Inj (Zofran Inj) (01/11/17 13:15) Sodium Chlor 0.9% 1000 Ml Inj (Ns 1000 M (01/11/17 13:05) Sodium Chloride 0.9% Flush (Ns Flush) (01/11/17 13:15) Iohexol 350 Inj (Omnipaque 350 Inj) (01/11/17 14:25) Urine Culture (01/11/17 14:38) Ciprofloxacin 400 Mg Premix (Cipro 400 M (01/11/17 16:15) Labs Laboratory Tests Test 01/11/17 13:20 01/11/17 14:38 White Blood Count 10.3 TH/MM3 Red Blood Count 4.93 MIL/MM3 Hemoglobin 14.6 GM/DL Hematocrit 43.5 % Mean Corpuscular Volume 88.2 FL Mean Corpuscular Hemoglobin 29.6 PG Mean Corpuscular Hemoglobin Concent 33.6 % Red Cell Distribution Width 12.6 % Platelet Count 301 TH/MM3 Mean Platelet Volume 7.3 FL Neutrophils (%) (Auto) 85.7 % Lymphocytes (%) (Auto) 10.1 % Monocytes (%) (Auto) 3.8 % Eosinophils (%) (Auto) 0.3 % Basophils (%) (Auto) 0.1 % Neutrophils # (Auto) 8.9 TH/MM3 Lymphocytes # (Auto) 1.0 TH/MM3 Monocytes # (Auto) 0.4 TH/MM3 Eosinophils # (Auto) 0.0 TH/MM3 Basophils # (Auto) 0.0 TH/MM3 CBC Comment DIFF FINAL Differential Comment Blood Urea Nitrogen 16 MG/DL Creatinine 0.72 MG/DL Random Glucose 119 MG/DL Total Protein 7.4 GM/DL Albumin 3.5 GM/DL Calcium Level 9.1 MG/DL Alkaline Phosphatase 96 U/L Aspartate Amino Transf (AST/SGOT) 17 U/L Alanine Aminotransferase (ALT/SGPT) 19 U/L Total Bilirubin 0.7 MG/DL Sodium Level 141 MEQ/L Potassium Level 3.4 MEQ/L Chloride Level 104 MEQ/L Carbon Dioxide Level 26.8 MEQ/L Anion Gap 10 MEQ/L Estimat Glomerular Filtration Rate 82 ML/MIN Lipase 95 U/L Urine Collection Type CLEAN CATCH Urine Color YELLOW Urine Turbidity CLEAR Urine pH 5.5 Urine Specific [place] 1.010 Urine Protein NEG mg/dL Urine Glucose (UA) NEG mg/dL Urine Ketones 15 mg/dL Urine Occult Blood TRACE Urine Nitrite POS Urine Bilirubin NEG Urine Leukocyte Esterase SMALL Urine RBC 0-3 /hpf Urine WBC 20-24 /hpf Urine WBC Clumps FEW Urine Squamous Epithelial Cells 6-8 /hpf Urine Renal Epithelial Cells 0-5 /hpf Urine Bacteria MANY /hpf Microscopic Urinalysis Comment CULTURE INDICATED Urine Collection Time 14:38 MDM Medical Decision Making Medical Screen Exam Complete: Yes Emergency Medical Condition: Yes Interpretation(s) Afebrile, no tachycardia, hypertensive No leukocytosis Mild hypokalemia Lipase is normal Urinalysis: Urinary tract infection Last 24 hours Impressions Abdomen/Pelvis CT 01/11/17 1305 Signed Impressions: Service Date/Time: December 14:18 - CONCLUSION: 1. There is overall no significant change since July 21. 2. Stable subpulmonic left pleural effusion with left basilar atelectasis and scarring. 3. Stable large ventral hernia containing small bowel, large bowel and extensive mesenteric fat. Mildly dilated loops of small bowel in the right abdomen are similar to prior examination. 4. Stable large calcified gallstone. 5. Stable small right renal cyst. No hydronephrosis or obstructive uropathy. Alex Polanco MD Differential Diagnosis Small bowel obstruction, pancreatitis, colitis, diverticulitis, kidney stone Narrative Course This is a 61-year-old female who presents to the emergency department with left lower quadrant abdominal discomfort, vomiting and constipation. Patient has a history of a known large ventral hernia. She's had a bowel obstruction in the past and her symptoms feel similar. Labs are obtained which are reassuring with the exception of a urinary tract infection. CT abdomen and pelvis demonstrates dilated loops of bowel in the right abdomen similar to in June when she presented with bowel obstruction. I discussed with Dr. Polanco the CT results and he did feel like this was consistent with a partial small bowel obstruction. Rose Ellis MD Jan 11, 2017 13:14
[2017-01-11 13:43] LABS: AUTOMATED NEUTROPHIL # 8.9 TH/MM3 (1.8-7.7); BASOPHIL % 0.1 % (0.0-2.0); EOSINOPHIL % 0.3 % (0.0-4.0); HEMATOCRIT 43.5 % (35.0-46.0); HEMO FLAGS DIFF FINAL; LYMPH % 10.1 % (9.0-44.0); MEAN CELL VOLUME 88.2 FL (80.0-100.0); MEAN CORPUSCULAR HEMOGLOBIN 29.6 PG (27.0-34.0); MEAN CORPUSCULAR HGB CONC 33.6 % (32.0-36.0); MONO % 3.8 % (0.0-8.0); NEUT % 85.7 % (16.0-70.0); PLATELET COUNT 301 TH/MM3 (150-450); RED BLOOD COUNT 4.93 MIL/MM3 (4.00-5.30); RED CELL DISTRIBUTION WIDTH 12.6 % (11.6-17.2); WHITE BLOOD COUNT 10.3 TH/MM3 (4.0-11.0)
[2017-01-11 13:54] LABS: CHLORIDE 104 MEQ/L (98-107); POTASSIUM 3.4 MEQ/L (3.5-5.1); SODIUM (NA) 141 MEQ/L (136-145)
[2017-01-11 13:58] LABS: ANION GAP 10 MEQ/L (5-15); BICARBONATE 26.8 MEQ/L (21.0-32.0); BLOOD UREA NITROGEN 16 MG/DL (7-18)
[2017-01-11 14:01] LABS: ALT (GPT) 19 U/L (10-53); AST (GOT) 17 U/L (15-37); GLOMERULAR FILTRATION RATE 82 ML/MIN (>89)
[2017-01-11 14:03] LABS: TOTAL BILIRUBIN ADULT 0.7 MG/DL (0.2-1.0)
[2017-01-11 14:04] LABS: ALKALINE PHOSPHATASE 96 U/L (45-117)
[2017-01-11] MEDS ORDERED: IOHEXOL 350 MG/ML 10 ML VIAL (for RAD DIAG) IVCONTRAST ONE (14:25)
--- NOTE | 2017-01-11 15:07 | RADRPT ---
EXAM DATE/TIME: 01/11/2017 14:18 [facility] COMPARISON: CT THORAX W CONTRAST, August 28, 2011, 10:17. INDICATIONS : Left lower quadrant pain, vomiting and constipation x 3 days. IV CONTRAST: 75 cc Omnipaque 350 (iohexol) IV ORAL CONTRAST: No oral contrast ingested. RADIATION DOSE: 21.12 CTDIvol (mGy) MEDICAL HISTORY : Hypertension. Hernia, umbilical. SURGICAL HISTORY : None. ENCOUNTER: Initial ACUITY: 3 days PAIN SCALE: 10/10 LOCATION: Left lower quadrant TECHNIQUE: Volumetric scanning of the abdomen and pelvis was performed. Using automated exposure control and ad justment of the mA and/or kV according to patient size, radiation dose was kept as low as reasonably achievable to obtain optimal diagnostic quality images. DICOM format image data is available electro nically for review and comparison. FINDINGS: Compare July 21. Loculated subpulmonic fluid on the left side is relatively stable since June. Ther e is associated left basilar atelectasis and scarring. Right lung base is clear except for small fat containing Bochdalek hernia. No acute findings in the liver, spleen, adrenals, kidneys or pancreas. Large calcified gallstone in g allbladder stable. There is a large ventral hernia containing small bowel, large bowel and mesenteric fat measuring up t o about 25 cm in maximal diameter, similar to prior examination. There is a dilated loop of small bow el in the right abdomen which is similar to prior examination. There is no free fluid or free air. No adenopathy. CONCLUSION: 1. There is overall no significant change since July 21. 2. Stable subpulmonic left pleural effusion with left basilar atelectasis and scarring. 3. Stable large ventral hernia containing small bowel, large bowel and extensive mesenteric fat. Mild ly dilated loops of small bowel in the right abdomen are similar to prior examination. 4. Stable large calcified gallstone. 5. Stable small right renal cyst. No hydronephrosis or obstructive uropathy. Alex Polanco MD on January 11, 2017 at 14:57 Board Certified Radiologist. This report was verified electronically.
[2017-01-11 15:23] LABS: BLOOD, URINE TRACE (NEG); GLUCOSE,URINE NEG (NEG); KETONE, URINE 15 mg/dL (NEG); NITRITE,URINE POS (NEG); PH, URINE 5.5 (5.0-8.5)
[2017-01-11 15:29] LABS: METHOD OF COLLECTION CLEAN CATCH; URINE COLOR YELLOW (YELLW/STRAW)
[2017-01-11 15:30] LABS: BACTERIA, URINE MANY /hpf; COMMENT (UR) CULTURE INDICATED; CULTURE IF INDICATED CULTURE INDICATED; RBC, URINE 0-3 /hpf (0-3); RENAL EPITHELIAL CELLS 0-5 /hpf
[2017-01-11] MEDS ORDERED: CIPROFLOXACIN 400 MG PREMIX 200 ML IV ONE (16:15)
[2017-01-11] MEDS ORDERED: RESP: LIDOCAINE HCL 4% PF 5 ML NEB INH ONE (16:45)
--- NOTE | 2017-01-11 17:47 | PD ---
Data Data Last Documented VS Vital Signs Date Time Temp Pulse Resp B/P (MAP) Pulse Ox O2 Delivery O2 Flow Rate FiO2 01/11/17 15:44 74 17 154/68 (96) 94 Room Air 01/11/17 12:55 99.5 Orders Orders Complete Blood Count With Diff (01/11/17 13:05) Comprehensive Metabolic Panel (01/11/17 13:05) Lipase (01/11/17 13:05) Urinalysis - C+S If Indicated (01/11/17 13:05) Ct Abd/Pel W Iv Contrast(Rout) (01/11/17 13:05) Iv Access Insert/Monitor (01/11/17 13:05) Ecg Monitoring (01/11/17 13:05) Oximetry (01/11/17 13:05) Morphine Inj (Morphine Inj) (01/11/17 13:15) Ondansetron Inj (Zofran Inj) (01/11/17 13:15) Sodium Chlor 0.9% 1000 Ml Inj (Ns 1000 M (01/11/17 13:05) Sodium Chloride 0.9% Flush (Ns Flush) (01/11/17 13:15) Iohexol 350 Inj (Omnipaque 350 Inj) (01/11/17 14:25) Urine Culture (01/11/17 14:38) Ciprofloxacin 400 Mg Premix (Cipro 400 M (01/11/17 16:15) Lidocaine Pf 4% Neb (Lidocaine Pf 4% Neb (01/11/17 16:45) Terrie-Gastric Tube Insert/Mon (01/11/17 16:43) Consult General Surgery (01/11/17 ) Insert Ng Tube (01/11/17 17:01) Admit Order (Ed Use Only) (01/11/17 ) Labs Laboratory Tests Test 01/11/17 13:20 01/11/17 14:38 White Blood Count 10.3 TH/MM3 Red Blood Count 4.93 MIL/MM3 Hemoglobin 14.6 GM/DL Hematocrit 43.5 % Mean Corpuscular Volume 88.2 FL Mean Corpuscular Hemoglobin 29.6 PG Mean Corpuscular Hemoglobin Concent 33.6 % Red Cell Distribution Width 12.6 % Platelet Count 301 TH/MM3 Mean Platelet Volume 7.3 FL Neutrophils (%) (Auto) 85.7 % Lymphocytes (%) (Auto) 10.1 % Monocytes (%) (Auto) 3.8 % Eosinophils (%) (Auto) 0.3 % Basophils (%) (Auto) 0.1 % Neutrophils # (Auto) 8.9 TH/MM3 Lymphocytes # (Auto) 1.0 TH/MM3 Monocytes # (Auto) 0.4 TH/MM3 Eosinophils # (Auto) 0.0 TH/MM3 Basophils # (Auto) 0.0 TH/MM3 CBC Comment DIFF FINAL Differential Comment Blood Urea Nitrogen 16 MG/DL Creatinine 0.72 MG/DL Random Glucose 119 MG/DL Total Protein 7.4 GM/DL Albumin 3.5 GM/DL Calcium Level 9.1 MG/DL Alkaline Phosphatase 96 U/L Aspartate Amino Transf (AST/SGOT) 17 U/L Alanine Aminotransferase (ALT/SGPT) 19 U/L Total Bilirubin 0.7 MG/DL Sodium Level 141 MEQ/L Potassium Level 3.4 MEQ/L Chloride Level 104 MEQ/L Carbon Dioxide Level 26.8 MEQ/L Anion Gap 10 MEQ/L Estimat Glomerular Filtration Rate 82 ML/MIN Lipase 95 U/L Urine Collection Type CLEAN CATCH Urine Color YELLOW Urine Turbidity CLEAR Urine pH 5.5 Urine Specific [place] 1.010 Urine Protein NEG mg/dL Urine Glucose (UA) NEG mg/dL Urine Ketones 15 mg/dL Urine Occult Blood TRACE Urine Nitrite POS Urine Bilirubin NEG Urine Leukocyte Esterase SMALL Urine RBC 0-3 /hpf Urine WBC 20-24 /hpf Urine WBC Clumps FEW Urine Squamous Epithelial Cells 6-8 /hpf Urine Renal Epithelial Cells 0-5 /hpf Urine Bacteria MANY /hpf Microscopic Urinalysis Comment CULTURE INDICATED Urine Collection Time 14:38 MDM Supervised Visit with JESS: No Narrative Course Patient already admitted with page out to Dr. Calderon for admission for health care for concerns of small bowel obstruction with large abdominal hernia. Patient known to Dr. Díaz is out of town, Dr. Dominguez discussed with Dr. Kumari who would like NG tube placed and then transferred to the [facility]. NG tube was placed low intermittent suction, confirmed with KUB. Patient did have some discomfort after NG tube placement additional order morphine was placed. She appears comfortable. My exam large abdominal hernia which is soft. I reviewed the CT scan does not appear that it is strangulated. Patient was discussed with Dr. Beverly who will admit to Dr. Yumiko We are waiting transfer to the main hospital at this time. We'll continue to monitor. Diagnosis Primary Impression: Small bowel obstruction Additional Impression: Ventral hernia Admitting Information Admitting Physician Requests: Admit Condition: Stable Lucho Rizzo MD Jan 11, 2017 17:46
--- NOTE | 2017-01-11 18:45 | HHI.HP ---
HPI Service [facility] Primary Care Physician Elliot Lewis MD Admission Diagnosis Abdominal wall hernia with SBO Chief Complaint: nausea, vomiting, abd pain Travel History International Travel<30 Days: No Contact w/Intl Traveler <30 Da: No Traveled to Known Affected Are: No History of Present Illness This is a 61-year-old female with HTN and hx of SBO who presents to the emergency department with a known large ventral hernia which is scheduled for repair with Dr. Rosas in early January who presents to the emergency department with 3 days of abdominal discomfort mostly in the left lower quadrant , intermittent, worse when she turn to the left side. She has noted associated nausea, 3 episodes of vomiting and constipation. Her last bowel movement was more than 48 hours ago. She says this feels similar to when she's had a bowel obstruction in the past. The vomitus is foul smelling. No f/c. CT scan noted for large ventral hernia containing small bowel with no significant change from prior CT earlier this year. ER physician reportedly discussed the case with general surgery who requested patient be transferred to the main campus for further evaluation by the general surgical team. Review of Systems Constitutional: COMPLAINS OF: Fatigue, DENIES: Diaphoretic episodes, Fever, Weight gain, Weight loss, Chills, Dizziness, Change in appetite, Night Sweats Ears, nose, mouth, throat: DENIES: Tinnitus, Hearing loss, Vertigo, Nasal discharge, Oral lesions, Throat pain, Hoarseness, Ear Pain, Running Nose, Epistaxis, Sinus Pain, Toothache, Odynophagia Respiratory: DENIES: Apneas, Cough, Snoring, Wheezing, Hemoptysis, Sputum production, Shortness of breath Cardiovascular: DENIES: Chest pain, Palpitations, Syncope, Dyspnea on Exertion , PND, Lower Extremity Edema, Orthopnea, Claudication Gastrointestinal: COMPLAINS OF: Abdominal pain, Constipation, Nausea, Vomiting Musculoskeletal: COMPLAINS OF: Joint pain Integumentary: DENIES: Abnormal pigmentation, Pruritus, Rash, Nail changes, Breast masses, Breast skin changes, Nipple discharge Hematologic/lymphatic: DENIES: Bruising, Lymphadenopathy Immunologic/allergic: DENIES: Eczema, Urticaria Neurologic: DENIES: Abnormal gait, Headache, Localized weakness, Paresthesias, Seizures, Speech Problems, Tremor, Poor Balance Past Family Social History Past Medical History Obesity Hypertension Hyperlipidemia Ventral hernia Past Surgical History Tonsillectomy and adenoidectomy D&C Reported Medications Amlodipine (Amlodipine Besylate) 10 Mg Tab 10 Mg PO DAILY Lisinopril 20 Mg Tab 20 Mg PO DAILY Metoprolol Tartrate 25 Mg Tab 25 Mg PO BID Simvastatin 40 Mg Tab 40 Mg PO HS Allergies: Coded Allergies: amoxicillin (Unverified Allergy, Severe, Swelling, 01/11/17) Family History Noncontributory Social History Denies tobacco or illicit drug use She does drink alcohol but relatively rarely Has no biological children Works locally at a [employer] Physical Exam Vital Signs Vital Signs Date Time Temp Pulse Resp B/P (MAP) Pulse Ox O2 Delivery O2 Flow Rate FiO2 01/11/17 18:17 82 16 149/73 (98) 93 Room Air 01/11/17 15:44 74 17 154/68 (96) 94 Room Air 01/11/17 14:43 74 18 153/55 (87) 95 Room Air 01/11/17 13:35 18 98 Room Air 01/11/17 12:55 99.5 76 20 178/82 (114) 96 Physical Exam GENERAL: This is a well-nourished, obese, well-developed patient, slightly anxious. Alert and oriented. She is about to receive an NG tube at the time of my exam. SKIN: No rashes, ecchymoses or lesions. Cool and dry. HEAD: Atraumatic. Normocephalic. No temporal or scalp tenderness. EYES: Pupils equal round and reactive. Extraocular motions intact. No scleral icterus. No injection or drainage. ENT: Nose without bleeding, purulent drainage or septal hematoma. Airway patent. NECK: Trachea midline. No JVD or lymphadenopathy. Supple, nontender, no meningeal signs. CARDIOVASCULAR: Regular rate and rhythm without murmurs, gallops, or rubs. RESPIRATORY: Clear to auscultation. Breath sounds equal bilaterally. No wheezes , rales, or rhonchi. GASTROINTESTINAL: Abdomen soft, mildly distended with apparent large ventral hernia and tenderness in the left lower and left mid abdomen. Bowel sounds are distant and somewhat hypoactive. No hepato-splenomegaly, or palpable masses. No rebound. MUSCULOSKELETAL: Extremities without clubbing, cyanosis, or edema. No joint tenderness, effusion, or edema noted. No calf tenderness. NEUROLOGICAL: Awake and alert. Cranial nerves II through XII intact. Motor and sensory grossly within normal limits. Five out of 5 muscle strength in all muscle groups. Normal speech. Laboratory Laboratory Tests Test 01/11/17 13:20 01/11/17 14:38 White Blood Count 10.3 Red Blood Count 4.93 Hemoglobin 14.6 Hematocrit 43.5 Mean Corpuscular Volume 88.2 Mean Corpuscular Hemoglobin 29.6 Mean Corpuscular Hemoglobin Concent 33.6 Red Cell Distribution Width 12.6 Platelet Count 301 Mean Platelet Volume 7.3 Neutrophils (%) (Auto) 85.7 Lymphocytes (%) (Auto) 10.1 Monocytes (%) (Auto) 3.8 Eosinophils (%) (Auto) 0.3 Basophils (%) (Auto) 0.1 Neutrophils # (Auto) 8.9 Lymphocytes # (Auto) 1.0 Monocytes # (Auto) 0.4 Eosinophils # (Auto) 0.0 Basophils # (Auto) 0.0 CBC Comment DIFF FINAL Differential Comment Blood Urea Nitrogen 16 Creatinine 0.72 Random Glucose 119 Total Protein 7.4 Albumin 3.5 Calcium Level 9.1 Alkaline Phosphatase 96 Aspartate Amino Transf (AST/SGOT) 17 Alanine Aminotransferase (ALT/SGPT) 19 Total Bilirubin 0.7 Sodium Level 141 Potassium Level 3.4 Chloride Level 104 Carbon Dioxide Level 26.8 Anion Gap 10 Estimat Glomerular Filtration Rate 82 Lipase 95 Urine Collection Type CLEAN CATCH Urine Color YELLOW Urine Turbidity CLEAR Urine pH 5.5 Urine Specific [place] 1.010 Urine Protein NEG Urine Glucose (UA) NEG Urine Ketones 15 Urine Occult Blood TRACE Urine Nitrite POS Urine Bilirubin NEG Urine Leukocyte Esterase SMALL Urine RBC 0-3 Urine WBC 20-24 Urine WBC Clumps FEW Urine Squamous Epithelial Cells 6-8 Urine Renal Epithelial Cells 0-5 Urine Bacteria MANY Microscopic Urinalysis Comment CULTURE INDICATED Urine Collection Time 14:38 Date/Time Source Procedure Growth Status 01/11/17 14:38 Urine Clean Catch Urine Culture Pending Received Result Diagram: 01/11/17 1320 01/11/17 1320 Imaging Last 72 hours Impressions Abdomen/Pelvis CT 01/11/17 1305 Signed Impressions: Service Date/Time: December 14:18 - CONCLUSION: 1. There is overall no significant change since July 21. 2. Stable subpulmonic left pleural effusion with left basilar atelectasis and scarring. 3. Stable large ventral hernia containing small bowel, large bowel and extensive mesenteric fat. Mildly dilated loops of small bowel in the right abdomen are similar to prior examination. 4. Stable large calcified gallstone. 5. Stable small right renal cyst. No hydronephrosis or obstructive uropathy. MD Buck Garciai VTE Risk Assessment Caprini VTE Risk Assessment: Mod/High Risk (score >= 2) Caprini Risk Assessment Model Point Value = 1 Point Value = 2 Point Value = 3 Point Value = 5 Age 41-60 Minor surgery BMI > 25 kg/m2 Swollen legs Varicose veins or History of unexplained or recurrent spontaneous Oral contraceptives or hormone replacement Sepsis (< 1 month) Serious lung disease, including pneumonia (< 1 month) Abnormal pulmonary function Acute myocardial infarction Congestive heart failure (< 1 month) History of inflammatory bowel disease Medical patient at bed rest Age 61-74 Arthroscopic surgery Major open surgery (> 45 min) Laparoscopic surgery (> 45 min) Malignancy Confined to bed (> 72 hours) Immobilizing plaster cast Central venous access Age >= 75 History of VTE Family history of VTE Factor V Leiden Prothrombin [id number] Lupus anticoagulant Anticardiolipin antibodies Elevated serum homocysteine Heparin-induced thrombocytopenia Other congenital or acquired thrombophilia Stroke (< 1 month) Elective arthroplasty Hip, pelvis, or leg fracture Acute spinal cord injury (< 1 month) Prophylaxis Regimen Total Risk Factor Score Risk Level Prophylaxis Regimen 0-1 Low Early ambulation 2 Moderate Order ONE of the following: *Sequential Compression Device (SCD) *Heparin 5000 units SQ BID 3-4 Higher Order ONE of the following medications: *Heparin 5000 units SQ TID *Enoxaparin/Lovenox 40 mg SQ daily (WT < 150 kg, CrCl > 30 mL/min) *Enoxaparin/Lovenox 30 mg SQ daily (WT < 150 kg, CrCl > 10-29 mL/min) *Enoxaparin/Lovenox 30 mg SQ BID (WT < 150 kg, CrCl > 30 mL/min) AND/OR *Sequential Compression Device (SCD) 5 or more Highest Order ONE of the following medications: *Heparin 5000 units SQ TID (Preferred with Epidurals) *Enoxaparin/Lovenox 40 mg SQ daily (WT < 150 kg, CrCl > 30 mL/min) *Enoxaparin/Lovenox 30 mg SQ daily (WT < 150 kg, CrCl > 10-29 mL/min) *Enoxaparin/Lovenox 30 mg SQ BID (WT < 150 kg, CrCl > 30 mL/min) AND *Sequential Compression Device (SCD) Assessment and Plan Problem List: (1) Small bowel obstruction ICD Codes: K56.69 - Other intestinal obstruction Status: Acute Plan: NG tube being placed. IV fluids and pain medications as needed. Gen. surgery consult. (2) Ventral hernia ICD Codes: K43.9 - Ventral hernia without obstruction or gangrene Status: Chronic Plan: As noted above. Patient was apparently scheduled to have this repaired surgically in January with Dr. Díaz. (3) Hypertension ICD Codes: I10 - Essential (primary) hypertension Status: Chronic Plan: Patient will likely be nothing by mouth. Provide IV when necessary medication. (4) Hyperlipidemia ICD Codes: E78.5 - Hyperlipidemia, unspecified Status: Chronic Plan: Outpatient treatment will be resumed at discharge. Code Status Full Discussed Condition With Patient, Dr. Calderon and ER provider. Physician Certification 2 Midnight Certification Type: Admission for Inpatient Services Order for Inpatient Services The services are ordered in accordance with Medicare regulations or non- Medicare payer requirements, as applicable. In the case of services not specified as inpatient-only, they are appropriately provided as inpatient services in accordance with the 2-midnight benchmark. Estimated LOS (days): 3 days is the estimated time the patient will need to remain in the hospital, assuming treatment plan goals are met and no additional complications. Post-Hospital Plan: Not yet determined Problem Qualifiers (1) Hypertension: Qualified Codes: I10 - Essential (primary) hypertension Saúl Beverly MD PhD Jan 11, 2017 18:45
[2017-01-11] MEDS ORDERED: ENALAPRILAT 1.25 MG/ML VIAL IV PUSH PRN (19:00)
--- NOTE | 2017-01-11 19:04 | RADRPT ---
EXAM DATE/TIME: 01/11/2017 18:45 [facility] COMPARISON: No previous studies available for comparison. INDICATIONS : Evaluate NG tube. MEDICAL HISTORY : Hypertension. SURGICAL HISTORY : Tonsillectomy. ENCOUNTER: Initial ACUITY: 2 days PAIN SCORE: 0/10 LOCATION: Bilateral Abdomen FINDINGS: Large umbilical hernia again noted. There is upper limits of normal caliber right seems fairly simila r to the CT earlier today. A nasogastric tube is been placed. The tip is in the upper stomach. The side hole is above the GE zurdo ction. colon, CONCLUSION: Tip of the nasogastric tube is in the upper stomach, sidehole above the GE junction. Carlitos Noguera MD on January 11, 2017 at 19:02 Board Certified Radiologist. This report was verified electronically.
[2017-01-11] MEDS: NS + KCL 20 MEQ INJ 1,000 ML IV SCH (20:48)
[2017-01-11] MEDS: cefTRIAXone INJ 1,000 MG in SODIUM CHLORIDE 0.9% INJ 100 ML IV SCH (20:49)
[2017-01-11] MEDS: MORPHINE SULFATE 4 MG/ML INJ IV PRN (22:04)
[2017-01-11] MEDS: ONDANSETRON HCL 4 MG/2 ML VIAL IV PUSH PRN (22:04)
[2017-01-12] VITALS (7 sets, daily range): BP systolic 124–180; BP diastolic 63–88; PULSE 68–74; RESP 16–18; TEMP 96.9–99.5; O2SAT 91–96
[2017-01-12] MEDS: NS + KCL 20 MEQ INJ 1,000 ML IV SCH ×2 (05:59→20:37)
[2017-01-12 06:20] LABS: AUTOMATED NEUTROPHIL # 7.4 TH/MM3 (1.8-7.7); BASOPHIL % 0.2 % (0.0-2.0); EOSINOPHIL # 0.1 TH/MM3 (0-0.4); EOSINOPHIL % 0.7 % (0.0-4.0); HEMO FLAGS DIFF FINAL; LYMPH % 11.9 % (9.0-44.0); LYMPHOCYTE # 1.1 TH/MM3 (1.0-4.8); MEAN CELL VOLUME 88.5 FL (80.0-100.0); MEAN CORPUSCULAR HEMOGLOBIN 31.1 PG (27.0-34.0); MEAN CORPUSCULAR HGB CONC 35.2 % (32.0-36.0); MONO % 5.4 % (0.0-8.0); NEUT % 81.8 % (16.0-70.0); PLATELET COUNT 226 TH/MM3 (150-450); RED BLOOD COUNT 4.41 MIL/MM3 (4.00-5.30); RED CELL DISTRIBUTION WIDTH 13.4 % (11.6-17.2); WHITE BLOOD COUNT 9.1 TH/MM3 (4.0-11.0)
[2017-01-12 06:48] LABS: ALT (GPT) 16 U/L (10-53); ANION GAP 5 MEQ/L (5-15); AST (GOT) 8 U/L (15-37); BICARBONATE 26.6 MEQ/L (21.0-32.0); BLOOD UREA NITROGEN 16 MG/DL (7-18); CHLORIDE 109 MEQ/L (98-107); GLOMERULAR FILTRATION RATE 79 ML/MIN (>89); POTASSIUM 3.6 MEQ/L (3.5-5.1); SODIUM (NA) 141 MEQ/L (136-145)
[2017-01-12 06:50] LABS: ALKALINE PHOSPHATASE 90 U/L (45-117); TOTAL BILIRUBIN ADULT 0.5 MG/DL (0.2-1.0)
[2017-01-12] MEDS: ONDANSETRON HCL 4 MG/2 ML VIAL IV PUSH PRN ×3 (08:03→20:36)
[2017-01-12] MEDS: MORPHINE SULFATE 4 MG/ML INJ IV PRN ×3 (09:05→20:37)
--- NOTE | 2017-01-12 10:11 | RADRPT ---
EXAM DATE/TIME: 01/12/2017 09:51 [facility] COMPARISON: ABDOMEN KUB ONLY, January 11, 2017, 18:45. INDICATIONS : Left side abdominal pain. MEDICAL HISTORY : Hypercholesterolemia. Hypertension Gall bladder disease. SURGICAL HISTORY : Tonsillectomy. D & C. ENCOUNTER: Subsequent ACUITY: 2 days PAIN SCORE: 6/10 LOCATION: Left abdomen FINDINGS: The exam demonstrates a nasogastric tube. The tip the tube is within the stomach. There is a large calcified gallstone seen in the right upper abdomen. There is a focal loop of thickened, moderately dilated small bowel seen in the upper abdomen. This is similar in appearance in the previous exam of 01/11/17. There is gas and stool seen throughout the colon down to the rectum. There are small bilateral pleural effusions. CONCLUSION: 1. NG tube in good position. 2. Large calcified gallstone. 3. Dilated loop of small bowel in the right upper and mid abdomen unchanged from prior. 4. Small bilateral effusions. Lee Archuleta MD on January 12, 2017 at 10:07 Board Certified Radiologist. This report was verified electronically.
--- NOTE | 2017-01-12 10:21 | HHI.PR ---
Subjective Remarks Pt had about 200mL of output from the NGT overnight. Currently she has another 100mL of gastric output but there has been issues with the suction regulator this morning. Pt reports that she felt slightly better with the NGT to LIWS but since the suction has not been working as well this morning she feels more nauseated. No flatus Objective Vitals Vital Signs Date Time Temp Pulse Resp B/P (MAP) Pulse Ox O2 Delivery O2 Flow Rate FiO2 01/12/17 04:00 96.9 70 16 137/78 (97) 93 01/12/17 00:00 98.0 74 16 124/63 (83) 93 01/11/17 21:30 77 154/66 (95) 01/11/17 20:44 98.7 75 18 176/67 (103) 96 01/11/17 20:04 88 18 144/74 (97) 94 01/11/17 18:17 82 16 149/73 (98) 93 Room Air 01/11/17 15:44 74 17 154/68 (96) 94 Room Air 01/11/17 14:43 74 18 153/55 (87) 95 Room Air 01/11/17 13:35 18 98 Room Air 01/11/17 12:55 99.5 76 20 178/82 (114) 96 Result Diagram: 01/12/17 0544 01/12/17 0544 Other Results Laboratory Tests Test 01/11/17 13:20 01/11/17 14:38 01/12/17 05:44 White Blood Count 10.3 TH/MM3 9.1 TH/MM3 Red Blood Count 4.93 MIL/MM3 4.41 MIL/MM3 Hemoglobin 14.6 GM/DL 13.7 GM/DL Hematocrit 43.5 % 39.0 % Mean Corpuscular Volume 88.2 FL 88.5 FL Mean Corpuscular Hemoglobin 29.6 PG 31.1 PG Mean Corpuscular Hemoglobin Concent 33.6 % 35.2 % Red Cell Distribution Width 12.6 % 13.4 % Platelet Count 301 TH/MM3 226 TH/MM3 Mean Platelet Volume 7.3 FL 7.4 FL Neutrophils (%) (Auto) 85.7 % 81.8 % Lymphocytes (%) (Auto) 10.1 % 11.9 % Monocytes (%) (Auto) 3.8 % 5.4 % Eosinophils (%) (Auto) 0.3 % 0.7 % Basophils (%) (Auto) 0.1 % 0.2 % Neutrophils # (Auto) 8.9 TH/MM3 7.4 TH/MM3 Lymphocytes # (Auto) 1.0 TH/MM3 1.1 TH/MM3 Monocytes # (Auto) 0.4 TH/MM3 0.5 TH/MM3 Eosinophils # (Auto) 0.0 TH/MM3 0.1 TH/MM3 Basophils # (Auto) 0.0 TH/MM3 0.0 TH/MM3 CBC Comment DIFF FINAL DIFF FINAL Differential Comment Blood Urea Nitrogen 16 MG/DL 16 MG/DL Creatinine 0.72 MG/DL 0.75 MG/DL Random Glucose 119 MG/DL 95 MG/DL Total Protein 7.4 GM/DL 6.5 GM/DL Albumin 3.5 GM/DL 3.0 GM/DL Calcium Level 9.1 MG/DL 8.2 MG/DL Alkaline Phosphatase 96 U/L 90 U/L Aspartate Amino Transf (AST/SGOT) 17 U/L 8 U/L Alanine Aminotransferase (ALT/SGPT) 19 U/L 16 U/L Total Bilirubin 0.7 MG/DL 0.5 MG/DL Sodium Level 141 MEQ/L 141 MEQ/L Potassium Level 3.4 MEQ/L 3.6 MEQ/L Chloride Level 104 MEQ/L 109 MEQ/L Carbon Dioxide Level 26.8 MEQ/L 26.6 MEQ/L Anion Gap 10 MEQ/L 5 MEQ/L Estimat Glomerular Filtration Rate 82 ML/MIN 79 ML/MIN Lipase 95 U/L Urine Collection Type CLEAN CATCH Urine Color YELLOW Urine Turbidity CLEAR Urine pH 5.5 Urine Specific [place] 1.010 Urine Protein NEG mg/dL Urine Glucose (UA) NEG mg/dL Urine Ketones 15 mg/dL Urine Occult Blood TRACE Urine Nitrite POS Urine Bilirubin NEG Urine Leukocyte Esterase SMALL Urine RBC 0-3 /hpf Urine WBC 20-24 /hpf Urine WBC Clumps FEW Urine Squamous Epithelial Cells 6-8 /hpf Urine Renal Epithelial Cells 0-5 /hpf Urine Bacteria MANY /hpf Microscopic Urinalysis Comment CULTURE INDICATED Urine Collection Time 14:38 Imaging Last Impressions Abdomen/Pelvis CT 01/11/17 1305 Signed Impressions: Service Date/Time: December 14:18 - CONCLUSION: 1. There is overall no significant change since July 21. 2. Stable subpulmonic left pleural effusion with left basilar atelectasis and scarring. 3. Stable large ventral hernia containing small bowel, large bowel and extensive mesenteric fat. Mildly dilated loops of small bowel in the right abdomen are similar to prior examination. 4. Stable large calcified gallstone. 5. Stable small right renal cyst. No hydronephrosis or obstructive uropathy. Alex Polanco MD Abdomen X-Ray 01/11/17 0000 Signed Impressions: Service Date/Time: , January 11, 2017 18:45 - CONCLUSION: Tip of the nasogastric tube is in the upper stomach, sidehole above the GE junction. Carlitos Noguera MD Objective Remarks General: NAD, AAOx3 ENT: NGT in place in right nare Chest: CTA Cardiac: Regular Abd: Absent BS, distended, large ventral hernia Ext: No edema A/P Problem List: (1) Small bowel obstruction ICD Codes: K56.69 - Other intestinal obstruction Status: Acute Plan: - Pt is a 61 y/o female with a known large ventral hernia and has had previous SBO related to this hernia. - She presented with N/V and abd pain. - Pt has an outpt appt for surgery on January 26, 2017 - CT Abd/pelvis (01/11) with overall no significant change since July 21, stable large ventral hernia containing small bowel, large bowel and extensive mesenteric fat. Mildly dilated loops of small bowel in the right abdomen are similar to prior examination. - NG tube was placed in the ED. She had out about 200mL overnight and another 100mL this morning. Cont. NGT to LIWS - Cont. IV fluids and pain medications as needed. - Await General surgery consult, Dr. Kumari. (2) Ventral hernia ICD Codes: K43.9 - Ventral hernia without obstruction or gangrene Status: Chronic Plan: - As noted above. - Patient was apparently scheduled to have this repaired surgically in January with Dr. Díaz. (3) Urine findings abnormal ICD Codes: R82.90 - Unspecified abnormal findings in urine Plan: - UA was abnormal at admission - Pt started on Ceftriaxone - Await urine culture. (4) Hypertension ICD Codes: I10 - Essential (primary) hypertension Status: Chronic Plan: - Patient is NPO - IV Vasotec PRN (5) Hyperlipidemia ICD Codes: E78.5 - Hyperlipidemia, unspecified Status: Chronic Plan: - Outpatient treatment will be resumed at discharge. Assessment and Plan Patient examined. Assessment and plan formulated with Ami Montgomery PA-C. I agree with the above. BOWEL OBSTRUCTION. VENTRAL HERNIA NGT TO SUCTION. GEN SURGERY CONSULTED. IVF AND PAIN CONTROL. PT SAYS ARE ADEQUATE FOR NOW. Problem Qualifiers (1) Hypertension: Qualified Codes: I10 - Essential (primary) hypertension Ami Montgomery Jan 12, 2017 10:21 Jose Calderon MD Jan 12, 2017 10:33
--- NOTE | 2017-01-12 20:25 | HHI.PR ---
Subjective Subjective Notes Minimal pain; no flatus. Objective Vitals/I&O Vital Signs Date Time Temp Pulse Resp B/P (MAP) Pulse Ox O2 Delivery O2 Flow Rate FiO2 01/12/17 16:00 99.5 72 18 175/74 (107) 95 01/12/17 09:05 21 01/11/17 18:17 Room Air Labs Laboratory Tests Test 01/12/17 05:44 White Blood Count 9.1 Red Blood Count 4.41 Hemoglobin 13.7 Hematocrit 39.0 Mean Corpuscular Volume 88.5 Mean Corpuscular Hemoglobin 31.1 Mean Corpuscular Hemoglobin Concent 35.2 Red Cell Distribution Width 13.4 Platelet Count 226 Mean Platelet Volume 7.4 Neutrophils (%) (Auto) 81.8 Lymphocytes (%) (Auto) 11.9 Monocytes (%) (Auto) 5.4 Eosinophils (%) (Auto) 0.7 Basophils (%) (Auto) 0.2 Neutrophils # (Auto) 7.4 Lymphocytes # (Auto) 1.1 Monocytes # (Auto) 0.5 Eosinophils # (Auto) 0.1 Basophils # (Auto) 0.0 CBC Comment DIFF FINAL Differential Comment Blood Urea Nitrogen 16 Creatinine 0.75 Random Glucose 95 Total Protein 6.5 Albumin 3.0 Calcium Level 8.2 Alkaline Phosphatase 90 Aspartate Amino Transf (AST/SGOT) 8 Alanine Aminotransferase (ALT/SGPT) 16 Total Bilirubin 0.5 Sodium Level 141 Potassium Level 3.6 Chloride Level 109 Carbon Dioxide Level 26.6 Anion Gap 5 Estimat Glomerular Filtration Rate 79 Date/Time Source Procedure Growth Status 01/11/17 14:38 Urine Clean Catch Urine Culture - Preliminary Gram Negative Zachery Resulted Radiology Last 24 hours Impressions Abdomen X-Ray 01/12/17 0000 Signed Impressions: Service Date/Time: Thursday, January 12, 2017 09:51 - CONCLUSION: 1. NG tube in good position. 2. Large calcified gallstone. 3. Dilated loop of small bowel in the right upper and mid abdomen unchanged from prior. 4. Small bilateral effusions. Lee Archuleta MD Cardiovascular: Regular Abdomen: Non-tender Extremities: No edema A/P Assessment and Plan Imp: partial SBO with abdominal wall hernia Plan: Continue IVF/NG tube. Repeat x-ray in AM Bebeto Kumari MD Jan 12, 2017 20:25
[2017-01-12] MEDS: cefTRIAXone INJ 1,000 MG in SODIUM CHLORIDE 0.9% INJ 100 ML IV SCH (20:38)
[2017-01-13] VITALS: BP 150/79; PULSE 66; RESP 20; TEMP 98.3; O2SAT 94
[2017-01-13] MEDS: NS + KCL 20 MEQ INJ 1,000 ML IV SCH ×3 (00:45→19:38)
[2017-01-13] MEDS: ONDANSETRON HCL 4 MG/2 ML VIAL IV PUSH PRN ×2 (03:04→09:13)
[2017-01-13] MEDS: MORPHINE SULFATE 4 MG/ML INJ IV PRN (03:04)
[2017-01-13 04:00] VITALS: BP 142/74; PULSE 67; RESP 20; TEMP 97.6; O2SAT 99
[2017-01-13 08:00] VITALS: BP 170/71; PULSE 73; RESP 18; TEMP 97.5; O2SAT 98
--- NOTE | 2017-01-13 09:02 | HHI.PR ---
Subjective Remarks Pt had out about 800mL in the last 24 hours from the NGT No flatus No BM Still very nauseated but no vomiting Abd pain seems to be better Objective Vitals Vital Signs Date Time Temp Pulse Resp B/P (MAP) Pulse Ox O2 Delivery O2 Flow Rate FiO2 01/13/17 04:00 97.6 67 20 142/74 (96) 99 01/13/17 00:00 98.3 66 20 150/79 (102) 94 01/12/17 20:30 97.8 68 18 179/88 (118) 95 01/12/17 16:00 99.5 72 18 175/74 (107) 95 01/12/17 12:00 98.0 73 18 180/79 (112) 96 01/12/17 09:05 94 21 Result Diagram: 01/12/17 0544 01/12/17 0544 Other Results Laboratory Tests Test 01/11/17 13:20 01/11/17 14:38 01/12/17 05:44 White Blood Count 10.3 TH/MM3 9.1 TH/MM3 Red Blood Count 4.93 MIL/MM3 4.41 MIL/MM3 Hemoglobin 14.6 GM/DL 13.7 GM/DL Hematocrit 43.5 % 39.0 % Mean Corpuscular Volume 88.2 FL 88.5 FL Mean Corpuscular Hemoglobin 29.6 PG 31.1 PG Mean Corpuscular Hemoglobin Concent 33.6 % 35.2 % Red Cell Distribution Width 12.6 % 13.4 % Platelet Count 301 TH/MM3 226 TH/MM3 Mean Platelet Volume 7.3 FL 7.4 FL Neutrophils (%) (Auto) 85.7 % 81.8 % Lymphocytes (%) (Auto) 10.1 % 11.9 % Monocytes (%) (Auto) 3.8 % 5.4 % Eosinophils (%) (Auto) 0.3 % 0.7 % Basophils (%) (Auto) 0.1 % 0.2 % Neutrophils # (Auto) 8.9 TH/MM3 7.4 TH/MM3 Lymphocytes # (Auto) 1.0 TH/MM3 1.1 TH/MM3 Monocytes # (Auto) 0.4 TH/MM3 0.5 TH/MM3 Eosinophils # (Auto) 0.0 TH/MM3 0.1 TH/MM3 Basophils # (Auto) 0.0 TH/MM3 0.0 TH/MM3 CBC Comment DIFF FINAL DIFF FINAL Differential Comment Blood Urea Nitrogen 16 MG/DL 16 MG/DL Creatinine 0.72 MG/DL 0.75 MG/DL Random Glucose 119 MG/DL 95 MG/DL Total Protein 7.4 GM/DL 6.5 GM/DL Albumin 3.5 GM/DL 3.0 GM/DL Calcium Level 9.1 MG/DL 8.2 MG/DL Alkaline Phosphatase 96 U/L 90 U/L Aspartate Amino Transf (AST/SGOT) 17 U/L 8 U/L Alanine Aminotransferase (ALT/SGPT) 19 U/L 16 U/L Total Bilirubin 0.7 MG/DL 0.5 MG/DL Sodium Level 141 MEQ/L 141 MEQ/L Potassium Level 3.4 MEQ/L 3.6 MEQ/L Chloride Level 104 MEQ/L 109 MEQ/L Carbon Dioxide Level 26.8 MEQ/L 26.6 MEQ/L Anion Gap 10 MEQ/L 5 MEQ/L Estimat Glomerular Filtration Rate 82 ML/MIN 79 ML/MIN Lipase 95 U/L Urine Collection Type CLEAN CATCH Urine Color YELLOW Urine Turbidity CLEAR Urine pH 5.5 Urine Specific [place] 1.010 Urine Protein NEG mg/dL Urine Glucose (UA) NEG mg/dL Urine Ketones 15 mg/dL Urine Occult Blood TRACE Urine Nitrite POS Urine Bilirubin NEG Urine Leukocyte Esterase SMALL Urine RBC 0-3 /hpf Urine WBC 20-24 /hpf Urine WBC Clumps FEW Urine Squamous Epithelial Cells 6-8 /hpf Urine Renal Epithelial Cells 0-5 /hpf Urine Bacteria MANY /hpf Microscopic Urinalysis Comment CULTURE INDICATED Urine Collection Time 14:38 Imaging Last Impressions Abdomen/Pelvis CT 01/11/17 1305 Signed Impressions: Service Date/Time: December 14:18 - CONCLUSION: 1. There is overall no significant change since July 21. 2. Stable subpulmonic left pleural effusion with left basilar atelectasis and scarring. 3. Stable large ventral hernia containing small bowel, large bowel and extensive mesenteric fat. Mildly dilated loops of small bowel in the right abdomen are similar to prior examination. 4. Stable large calcified gallstone. 5. Stable small right renal cyst. No hydronephrosis or obstructive uropathy. Alex Polanco MD Abdomen X-Ray 01/11/17 0000 Signed Impressions: Service Date/Time: December 18:45 - CONCLUSION: Tip of the nasogastric tube is in the upper stomach, sidehole above the GE junction. Carlitos Noguera MD Objective Remarks General: NAD, AAOx3 ENT: NGT in place in right nare Chest: CTA Cardiac: Regular Abd: Decreased BS, distended, large ventral hernia Ext: No edema A/P Problem List: (1) Small bowel obstruction ICD Codes: K56.69 - Other intestinal obstruction Status: Acute Plan: - Pt is a 61 y/o female with a known large ventral hernia and has had previous SBO related to this hernia. - She presented with N/V and abd pain. - Pt has an outpt appt for surgery on January 26, 2017 - CT Abd/pelvis (01/11) with overall no significant change since July 21, stable large ventral hernia containing small bowel, large bowel and extensive mesenteric fat. Mildly dilated loops of small bowel in the right abdomen are similar to prior examination. - NG tube was placed in the ED. She had out about 200mL overnight and another 100mL this morning. - Cont. NGT to LIWS - Cont. IV fluids and pain medications as needed. - Appreciate General surgery consult, Dr. Kumari. - Requested repeat KUB for today (2) Ventral hernia ICD Codes: K43.9 - Ventral hernia without obstruction or gangrene Status: Chronic Plan: - As noted above. - Patient was apparently scheduled to have this repaired surgically in January with Dr. Díaz. (3) Urine findings abnormal ICD Codes: R82.90 - Unspecified abnormal findings in urine Plan: - UA was abnormal at admission - Pt started on Ceftriaxone - Urine culture growing GNR, await final culture. (4) Hypertension ICD Codes: I10 - Essential (primary) hypertension Status: Chronic Plan: - Patient is NPO - IV Vasotec PRN (5) Hyperlipidemia ICD Codes: E78.5 - Hyperlipidemia, unspecified Status: Chronic Plan: - Outpatient treatment will be resumed at discharge. Assessment and Plan Patient examined. Assessment and plan formulated with Ami Montgomery PA-C. I agree with the above. bowel obstruction. ngt. ivf. pain control gen surg following. suspect she will need surgery for obstruction and ventral hernia soon. Problem Qualifiers (1) Hypertension: Qualified Codes: I10 - Essential (primary) hypertension Ami Montgomery Jan 13, 2017 09:02 Jose Calderon MD Jan 13, 2017 11:08
--- NOTE | 2017-01-13 10:42 | RADRPT ---
EXAM DATE/TIME: 01/13/2017 10:09 [facility] COMPARISON: CT ABDOMEN & PELVIS W CONTRAST, July 21, 2016, 18:22. CT ABDOMEN & PELVIS W CONTRAST, January 11, 2017, 14:18. ABDOMEN KUB ONLY, January 11, 2017, 18:45. ABDOMEN KUB ONLY, January 12, 2017, 9: 51. INDICATIONS : Abdominal Pain MEDICAL HISTORY : Hypercholesterolemia. Hypertension Gall bladder disease. SURGICAL HISTORY : Tonsillectomy. D & C. ENCOUNTER: Subsequent ACUITY: 3 days PAIN SCORE: 6/10 LOCATION: Left abdomen FINDINGS: 2 supine frontal views of the abdomen demonstrate stable abnormal dilatation of a segment of small stephanie wel in the right upper quadrant. Otherwise, there is a relative positive small bowel gas. Nasogastric tube tip is in the gastric cardia region the sentinel hole the distal esophagus. The calcified galls tone is not well-visualized. No abnormal mass effect is appreciated. There is left basilar airspace o pacity. CONCLUSION: Stable dilated segment of small bowel overlying the right upper quadrant. Prior CT demonstrated this dilatation is related to some degree of bowel obstruction secondary to a large ventral hernia. Carlitos Foreman MD on January 13, 2017 at 10:38 Board Certified Radiologist. This report was verified electronically.
--- NOTE | 2017-01-13 11:12 | HHI.PR ---
Subjective Subjective Notes The patient states that she has had no pain in the last 24 hours. She has occasional indigestion but no nausea or emesis. She has passed no flatus. She has not been out of bed walking in more than 36 hours. Objective Vitals/I&O Vital Signs Date Time Temp Pulse Resp B/P (MAP) Pulse Ox O2 Delivery O2 Flow Rate FiO2 01/13/17 08:00 97.5 73 18 170/71 (104) 98 01/12/17 09:05 21 01/11/17 18:17 Room Air Labs Date/Time Source Procedure Growth Status 01/11/17 14:38 Urine Clean Catch Urine Culture - Final Klebsiella Pneumoniae Complete Radiology Last 24 hours Impressions Abdomen X-Ray 01/13/17 0000 Signed Impressions: Service Date/Time: Friday, January 13, 2017 10:09 - CONCLUSION: Stable dilated segment of small bowel overlying the right upper quadrant. Prior CT demonstrated this dilatation is related to some degree of bowel obstruction secondary to a large ventral hernia. Carlitos Foreman MD Last 24 hours Impressions Abdomen X-Ray 01/12/17 0000 Signed Impressions: Service Date/Time: Thursday, January 12, 2017 09:51 - CONCLUSION: 1. NG tube in good position. 2. Large calcified gallstone. 3. Dilated loop of small bowel in the right upper and mid abdomen unchanged from prior. 4. Small bilateral effusions. Lee Archuleta MD Cardiovascular: Regular Lungs: Clear Abdomen: Non-distended, Non-tender, BS normal A/P Assessment and Plan Imp: partial SBO with abdominal wall hernia. She has no evidence of total obstruction or peritoneal signs at this point. She is scheduled for surgery by Dr. Rosas and on January 26 Plan: Continue IVF/NG tube. I have ordered popsicles and ice chips ad doug. A repeat flat and upright abdominal film as well as laboratory work as been ordered for the morning. I'm placing her on Protonix for now. Bebeto Kumari MD Jan 13, 2017 11:12
[2017-01-13] MEDS ORDERED: PANTOPRAZOLE SODIUM 40 MG VIAL IV PUSH SCH ×2 (11:15→12:00)
[2017-01-13] MEDS ORDERED: PHENOL 1.4% SOLN 180 ML BTL OROPHARYNG PRN (11:15)
[2017-01-13] MEDS: cefTRIAXone INJ 1,000 MG in SODIUM CHLORIDE 0.9% INJ 100 ML IV SCH (19:39)
[2017-01-13 21:25] VITALS: BP 151/69; PULSE 67; RESP 18; TEMP 99.3; O2SAT 96
[2017-01-13 23:50] VITALS: BP 152/76; PULSE 75; RESP 18; TEMP 97.4; O2SAT 95
[2017-01-14] MEDS: ONDANSETRON HCL 4 MG/2 ML VIAL IV PUSH PRN ×3 (03:33→20:27)
[2017-01-14 04:41] LABS: AUTOMATED NEUTROPHIL # 7.5 TH/MM3 (1.8-7.7); BASOPHIL % 0.5 % (0.0-2.0); EOSINOPHIL # 0.1 TH/MM3 (0-0.4); EOSINOPHIL % 0.8 % (0.0-4.0); HEMO FLAGS DIFF FINAL; LYMPH % 11.7 % (9.0-44.0); LYMPHOCYTE # 1.1 TH/MM3 (1.0-4.8); MEAN CELL VOLUME 88.6 FL (80.0-100.0); MEAN CORPUSCULAR HEMOGLOBIN 30.3 PG (27.0-34.0); MEAN CORPUSCULAR HGB CONC 34.2 % (32.0-36.0); MONO % 4.8 % (0.0-8.0); NEUT % 82.2 % (16.0-70.0); PLATELET COUNT 245 TH/MM3 (150-450); RED CELL DISTRIBUTION WIDTH 13.2 % (11.6-17.2); WHITE BLOOD COUNT 9.1 TH/MM3 (4.0-11.0)
[2017-01-14 04:42] LABS: BICARBONATE 26.9 MEQ/L (21.0-32.0); POTASSIUM 3.7 MEQ/L (3.5-5.1)
[2017-01-14] MEDS: NS + KCL 20 MEQ INJ 1,000 ML IV SCH ×2 (05:34→16:45)
[2017-01-14 08:00] VITALS: BP 175/78; PULSE 97; RESP 17; TEMP 96.8; O2SAT 96
--- NOTE | 2017-01-14 08:30 | RADRPT ---
EXAM DATE/TIME: 01/14/2017 08:09 [facility] COMPARISON: ABDOMEN KUB ONLY, January 13, 2017, 10:09. INDICATIONS : Abdominal Pain. Nausea. MEDICAL HISTORY : Hypercholesterolemia. Hypertension Gall bladder disease. SURGICAL HISTORY : Tonsillectomy. D & C. ENCOUNTER: [facility] ACUITY: 4 - 6 days PAIN SCORE: 6/10 LOCATION: Left abdomen FINDINGS: Supine and upright views of the abdomen demonstrates stable dilated small bowel segment in the right upper quadrant measuring 4.[address] demonstrated this to be associated with a large ventral her cata. There is a stable calcified gallstone overlying the right upper quadrant measuring approximately 3.5 cm. Nasogastric tube tip terminates in the gastric cardia region the sentinel hole in the distal esophagus. Upright image demonstrates no free intraperitoneal air or air-fluid level. CONCLUSION: 1. Stable examination with abnormally dilated small bowel in the right upper quadrant. Prior CT demon strated this to represent obstruction to some degree secondary to a large ventral hernia. 2. Nasogastric tube distal tip terminates in the gastric cardia. Carlitos Foreman MD on January 14, 2017 at 8:27 Board Certified Radiologist. This report was verified electronically.
[2017-01-14 08:45] VITALS: O2SAT 94
--- NOTE | 2017-01-14 09:46 | HHI.PR ---
Subjective Remarks passing small amt of flatus has been ambulating today very nauseated. zofran not helping. Objective Vitals heart reg lung cta abd bs/ventral hernia ext no edema ngt to suction Vital Signs Date Time Temp Pulse Resp B/P (MAP) Pulse Ox O2 Delivery O2 Flow Rate FiO2 01/14/17 08:00 96.8 97 17 175/78 (110) 96 01/13/17 23:50 97.4 75 18 152/76 (101) 95 01/13/17 21:25 99.3 67 18 151/69 (96) 96 01/14/17 01/14/17 01/15/17 15:00 23:00 07:00 Intake Total 100 ml Balance 100 ml IV Total 100 ml Result Diagram: 01/14/1731601/14/17316 Imaging Last Impressions Abdomen/Pelvis CT 01/11/17 1305 Signed Impressions: Service Date/Time: , January 11, 2017 14:18 - CONCLUSION: 1. There is overall no significant change since July 21. 2. Stable subpulmonic left pleural effusion with left basilar atelectasis and scarring. 3. Stable large ventral hernia containing small bowel, large bowel and extensive mesenteric fat. Mildly dilated loops of small bowel in the right abdomen are similar to prior examination. 4. Stable large calcified gallstone. 5. Stable small right renal cyst. No hydronephrosis or obstructive uropathy. Alex Polanco MD Abdomen X-Ray 01/11/17 0000 Signed Impressions: Service Date/Time: , January 11, 2017 18:45 - CONCLUSION: Tip of the nasogastric tube is in the upper stomach, sidehole above the GE junction. Carlitos Noguera MD A/P Problem List: (1) Small bowel obstruction ICD Codes: K56.69 - Other intestinal obstruction Status: Acute Plan: - Pt is a 61 y/o female with a known large ventral hernia and has had previous SBO related to this hernia. - She presented with N/V and abd pain. - Pt has an outpt appt for surgery on January 26, 2017 - CT Abd/pelvis (01/11) with overall no significant change since July 21, stable large ventral hernia containing small bowel, large bowel and extensive mesenteric fat. Mildly dilated loops of small bowel in the right abdomen are similar to prior examination. - NG tube was placed in the ED. - Cont. NGT to LIWS - Cont. IV fluids and pain medications as needed. - Appreciate General surgery consult, Dr. Kumari. - increase prn antiemetics and ppi iv -increase ambulation (2) Ventral hernia ICD Codes: K43.9 - Ventral hernia without obstruction or gangrene Status: Chronic Plan: - As noted above. - Patient was apparently scheduled to have this repaired surgically in January with Dr. Díaz. (3) Urine findings abnormal ICD Codes: R82.90 - Unspecified abnormal findings in urine Plan: -uti klebsiella. on rocephin. (4) Hypertension ICD Codes: I10 - Essential (primary) hypertension Status: Chronic Plan: - Patient is NPO - IV Vasotec PRN (5) Hyperlipidemia ICD Codes: E78.5 - Hyperlipidemia, unspecified Status: Chronic Plan: - Outpatient treatment will be resumed at discharge. Problem Qualifiers (1) Hypertension: Qualified Codes: I10 - Essential (primary) hypertension Jose Calderon MD Jan 14, 2017 09:45
[2017-01-14] MEDS ORDERED: PROMETHAZINE INJ 25 MG/ML VIAL IM ONE (10:00)
[2017-01-14] MEDS: PANTOPRAZOLE SODIUM 40 MG VIAL IV PUSH SCH ×2 (10:04→20:27)
[2017-01-14 12:10] VITALS: BP 154/83; PULSE 58; RESP 18; TEMP 98.5; O2SAT 94
--- NOTE | 2017-01-14 12:32 | HHI.PR ---
Subjective Subjective Notes The patient states that she had a small amount of flatus today. She's not had a bowel movement. She's been out of bed and walking a little bit easier. Her abdominal pain is under control with minimal discomfort at any given time. She continues to have occasional nausea and small amount of emesis. Objective Vitals/I&O Vital Signs Date Time Temp Pulse Resp B/P (MAP) Pulse Ox O2 Delivery O2 Flow Rate FiO2 01/14/17 08:45 94 21 01/14/17 08:00 96.8 97 17 175/78 (110) 01/11/17 18:17 Room Air Labs Laboratory Tests Test 01/14/17 03:17 White Blood Count 9.1 Red Blood Count 4.40 Hemoglobin 13.3 Hematocrit 39.0 Mean Corpuscular Volume 88.6 Mean Corpuscular Hemoglobin 30.3 Mean Corpuscular Hemoglobin Concent 34.2 Red Cell Distribution Width 13.2 Platelet Count 245 Mean Platelet Volume 7.7 Neutrophils (%) (Auto) 82.2 Lymphocytes (%) (Auto) 11.7 Monocytes (%) (Auto) 4.8 Eosinophils (%) (Auto) 0.8 Basophils (%) (Auto) 0.5 Neutrophils # (Auto) 7.5 Lymphocytes # (Auto) 1.1 Monocytes # (Auto) 0.4 Eosinophils # (Auto) 0.1 Basophils # (Auto) 0.0 CBC Comment DIFF FINAL Differential Comment Blood Urea Nitrogen 15 Creatinine 0.59 Random Glucose 88 Calcium Level 8.3 Sodium Level 143 Potassium Level 3.7 Chloride Level 109 Carbon Dioxide Level 26.9 Anion Gap 7 Estimat Glomerular Filtration Rate 104 Date/Time Source Procedure Growth Status 01/11/17 14:38 Urine Clean Catch Urine Culture - Final Klebsiella Pneumoniae Complete Radiology Last 24 hours Impressions Abdomen X-Ray 01/14/17 0600 Signed Impressions: Service Date/Time: Saturday, January 14, 2017 08:09 - CONCLUSION: 1. Stable examination with abnormally dilated small bowel in the right upper quadrant. Prior CT demonstrated this to represent obstruction to some degree secondary to a large ventral hernia. 2. Nasogastric tube distal tip terminates in the gastric cardia. Carlitos Foreman MD Last 24 hours Impressions Abdomen X-Ray 01/13/17 0000 Signed Impressions: Service Date/Time: Friday, January 13, 2017 10:09 - CONCLUSION: Stable dilated segment of small bowel overlying the right upper quadrant. Prior CT demonstrated this dilatation is related to some degree of bowel obstruction secondary to a large ventral hernia. Carlitos Foreman MD Last 24 hours Impressions Abdomen X-Ray 01/12/17 0000 Signed Impressions: Service Date/Time: Thursday, January 12, 2017 09:51 - CONCLUSION: 1. NG tube in good position. 2. Large calcified gallstone. 3. Dilated loop of small bowel in the right upper and mid abdomen unchanged from prior. 4. Small bilateral effusions. Lee Archuleta MD Cardiovascular: Regular Lungs: Clear Abdomen: Non-distended, Non-tender, BS normal A/P Assessment and Plan Imp: partial SBO with abdominal wall hernia. She has no evidence of total obstruction or peritoneal signs at this point. Hopefully she will continue to improve with regard to the obstruction, although the x-ray still shows at least a partial obstruction. Plan: Continue IVF/NG tube. Bebeto Kumari MD Jan 14, 2017 12:32
[2017-01-14 16:00] VITALS: BP 151/80; PULSE 66; RESP 18; TEMP 95.5; O2SAT 94
[2017-01-14] MEDS: PROMETHAZINE INJ 25 MG/ML VIAL IM PRN (17:05)
[2017-01-14] MEDS: cefTRIAXone INJ 1,000 MG in SODIUM CHLORIDE 0.9% INJ 100 ML IV SCH (20:26)
[2017-01-14 20:30] VITALS: BP 152/79; PULSE 65; RESP 17; TEMP 97; O2SAT 93
[2017-01-15 00:35] VITALS: BP 160/78; PULSE 66; RESP 18; TEMP 98.1; O2SAT 95
[2017-01-15] MEDS: NS + KCL 20 MEQ INJ 1,000 ML IV SCH ×3 (02:53→19:36)
[2017-01-15 03:35] VITALS: BP 177/84; PULSE 63; RESP 18; TEMP 97.7; O2SAT 95
[2017-01-15] MEDS: PROMETHAZINE INJ 25 MG/ML VIAL IM PRN ×3 (05:40→19:38)
[2017-01-15] MEDS: PANTOPRAZOLE SODIUM 40 MG VIAL IV PUSH SCH ×2 (07:20→19:35)
[2017-01-15] MEDS: ONDANSETRON HCL 4 MG/2 ML VIAL IV PUSH PRN ×3 (07:20→17:16)
[2017-01-15 08:00] VITALS: BP 167/73; PULSE 75; RESP 18; TEMP 96.6; O2SAT 96
[2017-01-15 12:00] VITALS: BP 148/68; PULSE 70; RESP 18; TEMP 96.3; O2SAT 95
--- NOTE | 2017-01-15 13:30 | HHI.PR ---
Subjective Remarks (+) flatus NO BM continued nausea relieved with phenergan Objective Vitals Vital Signs Date Time Temp Pulse Resp B/P (MAP) Pulse Ox O2 Delivery O2 Flow Rate FiO2 01/15/17 08:00 96.6 75 18 167/73 (104) 96 01/15/17 03:35 97.7 63 18 177/84 (115) 95 01/15/17 00:35 98.1 66 18 160/78 (105) 95 01/14/17 20:30 97.0 65 17 152/79 (103) 93 01/14/17 16:00 95.5 66 18 151/80 (103) 94 01/15/17 01/15/17 01/16/17 15:00 23:00 07:00 Output Total 25 ml Balance -25 ml Output Gastric Drainage Total 25 ml Result Diagram: 01/14/1731601/14/17 031 Imaging Last Impressions Abdomen X-Ray 01/14/17 0600 Signed Impressions: Service Date/Time: Saturday, January 14, 2017 08:09 - CONCLUSION: 1. Stable examination with abnormally dilated small bowel in the right upper quadrant. Prior CT demonstrated this to represent obstruction to some degree secondary to a large ventral hernia. 2. Nasogastric tube distal tip terminates in the gastric cardia. Carlitos Foreman MD Abdomen/Pelvis CT 01/11/17 1305 Signed Impressions: Service Date/Time: December 14:18 - CONCLUSION: 1. There is overall no significant change since July 21. 2. Stable subpulmonic left pleural effusion with left basilar atelectasis and scarring. 3. Stable large ventral hernia containing small bowel, large bowel and extensive mesenteric fat. Mildly dilated loops of small bowel in the right abdomen are similar to prior examination. 4. Stable large calcified gallstone. 5. Stable small right renal cyst. No hydronephrosis or obstructive uropathy. Alex Polanco MD Objective Remarks GENERAL: This is a well-nourished, well-developed patient, in no apparent distress. CARDIOVASCULAR: Regular rate and rhythm without murmurs, gallops, or rubs. RESPIRATORY: Clear to auscultation. Breath sounds equal bilaterally. No wheezes , rales, or rhonchi. GASTROINTESTINAL: Abdomen soft, non-tender, nondistended. Normal active bowel sounds MUSCULOSKELETAL: Extremities without clubbing, cyanosis, or edema. NEURO: Alert & Oriented x4 to person, place, time, situation. Moves all ext x4 A/P Problem List: (1) Small bowel obstruction ICD Codes: K56.69 - Other intestinal obstruction Status: Acute Plan: - Pt is a 61 y/o female with a known large ventral hernia and has had previous SBO related to this hernia. - She presented with N/V and abd pain. - Pt has an outpt appt for surgery on January 26, 2017 - CT Abd/pelvis (01/11) with overall no significant change since July 21, stable large ventral hernia containing small bowel, large bowel and extensive mesenteric fat. Mildly dilated loops of small bowel in the right abdomen are similar to prior examination. - NG tube was placed in the ED. - Cont. NGT to LIWS - Cont. IV fluids and pain medications as needed. - encourage ambulation - Dr. Borges will evaluate pt later today. (2) Ventral hernia ICD Codes: K43.9 - Ventral hernia without obstruction or gangrene Status: Chronic Plan: - As noted above. - Patient was apparently scheduled to have this repaired surgically in January with Dr. Díaz. (3) Urine findings abnormal ICD Codes: R82.90 - Unspecified abnormal findings in urine Plan: -uti klebsiella. on rocephin. (4) Hypertension ICD Codes: I10 - Essential (primary) hypertension Status: Chronic Plan: - Patient is NPO - IV Vasotec PRN (5) Hyperlipidemia ICD Codes: E78.5 - Hyperlipidemia, unspecified Status: Chronic Plan: - Outpatient treatment will be resumed at discharge. Problem Qualifiers (1) Hypertension: Qualified Codes: I10 - Essential (primary) hypertension Carlos Murray DO Jan 15, 2017 13:30
[2017-01-15 16:00] VITALS: BP 159/72; PULSE 67; RESP 18; TEMP 97.8; O2SAT 94
--- NOTE | 2017-01-15 17:05 | HHI.PR ---
Subjective Subjective Notes Sitting up in bed Scant output from NGT Nausea improving Objective Vitals/I&O Vital Signs Date Time Temp Pulse Resp B/P (MAP) Pulse Ox O2 Delivery O2 Flow Rate FiO2 01/15/17 12:00 96.3 70 18 148/68 (94) 95 01/14/17 08:45 21 01/11/17 18:17 Room Air Labs Laboratory Tests Test 01/11/17 13:20 01/11/17 14:38 01/12/17 05:44 01/14/17 03:17 Lipase 95 U/L Urine Collection Type CLEAN CATCH Urine Color YELLOW Urine Turbidity CLEAR Urine pH 5.5 Urine Specific [place] 1.010 Urine Protein NEG mg/dL Urine Glucose (UA) NEG mg/dL Urine Ketones 15 mg/dL Urine Occult Blood TRACE Urine Nitrite POS Urine Bilirubin NEG Urine Leukocyte Esterase SMALL Urine RBC 0-3 /hpf Urine WBC 20-24 /hpf Urine WBC Clumps FEW Urine Squamous Epithelial Cells 6-8 /hpf Urine Renal Epithelial Cells 0-5 /hpf Urine Bacteria MANY /hpf Microscopic Urinalysis Comment CULTURE INDICATED Urine Collection Time 14:38 Blood Urea Nitrogen 16 MG/DL 15 MG/DL Creatinine 0.75 MG/DL 0.59 MG/DL Random Glucose 95 MG/DL 88 MG/DL Total Protein 6.5 GM/DL Albumin 3.0 GM/DL Calcium Level 8.2 MG/DL 8.3 MG/DL Alkaline Phosphatase 90 U/L Aspartate Amino Transf (AST/SGOT) 8 U/L Alanine Aminotransferase (ALT/SGPT) 16 U/L Total Bilirubin 0.5 MG/DL Sodium Level 141 MEQ/L 143 MEQ/L Potassium Level 3.6 MEQ/L 3.7 MEQ/L Chloride Level 109 MEQ/L 109 MEQ/L Carbon Dioxide Level 26.6 MEQ/L 26.9 MEQ/L White Blood Count 9.1 TH/MM3 Red Blood Count 4.40 MIL/MM3 Hemoglobin 13.3 GM/DL Hematocrit 39.0 % Mean Corpuscular Volume 88.6 FL Mean Corpuscular Hemoglobin 30.3 PG Mean Corpuscular Hemoglobin Concent 34.2 % Red Cell Distribution Width 13.2 % Platelet Count 245 TH/MM3 Mean Platelet Volume 7.7 FL Neutrophils (%) (Auto) 82.2 % Lymphocytes (%) (Auto) 11.7 % Monocytes (%) (Auto) 4.8 % Eosinophils (%) (Auto) 0.8 % Basophils (%) (Auto) 0.5 % Neutrophils # (Auto) 7.5 TH/MM3 Lymphocytes # (Auto) 1.1 TH/MM3 Monocytes # (Auto) 0.4 TH/MM3 Eosinophils # (Auto) 0.1 TH/MM3 Basophils # (Auto) 0.0 TH/MM3 CBC Comment DIFF FINAL Differential Comment Anion Gap 7 MEQ/L Estimat Glomerular Filtration Rate 104 ML/MIN Date/Time Source Procedure Growth Status 01/11/17 14:38 Urine Clean Catch Urine Culture - Final Klebsiella Pneumoniae Complete Radiology Last 24 hours Impressions Abdomen X-Ray 01/14/17 0600 Signed Impressions: Service Date/Time: Saturday, January 14, 2017 08:09 - CONCLUSION: 1. Stable examination with abnormally dilated small bowel in the right upper quadrant. Prior CT demonstrated this to represent obstruction to some degree secondary to a large ventral hernia. 2. Nasogastric tube distal tip terminates in the gastric cardia. Carlitos Foreman MD Last 24 hours Impressions Abdomen X-Ray 01/13/17 0000 Signed Impressions: Service Date/Time: Friday, January 13, 2017 10:09 - CONCLUSION: Stable dilated segment of small bowel overlying the right upper quadrant. Prior CT demonstrated this dilatation is related to some degree of bowel obstruction secondary to a large ventral hernia. Carlitos Foreman MD Last 24 hours Impressions Abdomen X-Ray 01/12/17 0000 Signed Impressions: Service Date/Time: Thursday, January 12, 2017 09:51 - CONCLUSION: 1. NG tube in good position. 2. Large calcified gallstone. 3. Dilated loop of small bowel in the right upper and mid abdomen unchanged from prior. 4. Small bilateral effusions. Lee Archuleta MD Cardiovascular: Regular Lungs: Clear Abdomen: Other (Large ventral hernia covering most of the abdomen. Questionable bowel sounds heard) A/P Assessment and Plan 61yo F with very large ventral hernia complicated by SBO -Continue with frequent ambulation -Clamp NGT, will put back on suction for nausea or vomiting -Advance diet to clears, if tolerated will hopefully advance to full tomorrow The exam, history, and the medical decision-making described in the above note were completed with the assistance of the mid-level provider. I reviewed and agree with the findings presented. I attest that I had a [id number] encounter with the patient on the same day, and personally performed and documented my assessment and findings in the medical record. Discharge Planning Depending on hospital course Adeel Chin Jan 15, 2017 17:05 Deny Rosas MD Feb 14, 2017 12:28
[2017-01-15] MEDS: cefTRIAXone INJ 1,000 MG in SODIUM CHLORIDE 0.9% INJ 100 ML IV SCH (19:35)
[2017-01-15 20:14] VITALS: BP 169/79; PULSE 70; RESP 14; TEMP 97.7; O2SAT 93
[2017-01-16] VITALS: BP 148/75; PULSE 60; RESP 16; TEMP 97.9; O2SAT 93
[2017-01-16 08:00] VITALS: BP 182/76; PULSE 67; RESP 18; TEMP 97.8; O2SAT 97
[2017-01-16] MEDS: PANTOPRAZOLE SODIUM 40 MG VIAL IV PUSH SCH ×2 (08:05→19:34)
[2017-01-16] MEDS: NS + KCL 20 MEQ INJ 1,000 ML IV SCH (08:07)
--- NOTE | 2017-01-16 13:25 | HHI.PR ---
Subjective Remarks Pt is ambulating in the hallways without difficulties. Pt is tolerating PO liquids. Objective Vitals Vital Signs Date Time Temp Pulse Resp B/P (MAP) Pulse Ox O2 Delivery O2 Flow Rate FiO2 01/16/17 08:00 97.8 67 18 182/76 (111) 97 01/16/17 00:00 97.9 60 16 148/75 (99) 93 01/15/17 20:14 97.7 70 14 169/79 (109) 93 01/15/17 16:00 97.8 67 18 159/72 (101) 94 Result Diagram: 01/14/1731601/14/17316 Imaging Last Impressions Abdomen X-Ray 01/14/17 0600 Signed Impressions: Service Date/Time: Saturday, January 14, 2017 08:09 - CONCLUSION: 1. Stable examination with abnormally dilated small bowel in the right upper quadrant. Prior CT demonstrated this to represent obstruction to some degree secondary to a large ventral hernia. 2. Nasogastric tube distal tip terminates in the gastric cardia. Carlitos Foreman MD Abdomen/Pelvis CT 01/11/17 1305 Signed Impressions: Service Date/Time: December 14:18 - CONCLUSION: 1. There is overall no significant change since July 21. 2. Stable subpulmonic left pleural effusion with left basilar atelectasis and scarring. 3. Stable large ventral hernia containing small bowel, large bowel and extensive mesenteric fat. Mildly dilated loops of small bowel in the right abdomen are similar to prior examination. 4. Stable large calcified gallstone. 5. Stable small right renal cyst. No hydronephrosis or obstructive uropathy. Alex Polanco MD Objective Remarks GENERAL: This is a well-nourished, well-developed patient, in no apparent distress. CARDIOVASCULAR: Regular rate and rhythm without murmurs, gallops, or rubs. RESPIRATORY: Clear to auscultation. Breath sounds equal bilaterally. No wheezes , rales, or rhonchi. GASTROINTESTINAL: large protruding ventral hernia, +BSx 4, no g/r/r MUSCULOSKELETAL: Extremities without clubbing, cyanosis, or edema. NEURO: Alert & Oriented x4 to person, place, time, situation. Moves all ext x4 A/P Problem List: (1) Small bowel obstruction ICD Codes: K56.69 - Other intestinal obstruction Status: Acute Plan: - cmgmt with General Surgery - Pt is a 61 y/o female with a known large ventral hernia and has had previous SBO related to this hernia. - She presented with N/V and abd pain. - Pt has an outpt appt for surgery on January 26, 2017 - CT Abd/pelvis (01/11) with overall no significant change since July 21, stable large ventral hernia containing small bowel, large bowel and extensive mesenteric fat. Mildly dilated loops of small bowel in the right abdomen are similar to prior examination. - NGT clamped - pt tolerated clear liquid diet - encourage ambulation - possible discharge in the next 1-2 days (2) Ventral hernia ICD Codes: K43.9 - Ventral hernia without obstruction or gangrene Status: Chronic Plan: - As noted above. - Patient was apparently scheduled to have this repaired surgically in January with Dr. Díaz. (3) Urine findings abnormal ICD Codes: R82.90 - Unspecified abnormal findings in urine Plan: -uti klebsiella. on rocephin. (4) Hypertension ICD Codes: I10 - Essential (primary) hypertension Status: Chronic Plan: - Patient is NPO - IV Vasotec PRN (5) Hyperlipidemia ICD Codes: E78.5 - Hyperlipidemia, unspecified Status: Chronic Plan: - Outpatient treatment will be resumed at discharge. Problem Qualifiers (1) Hypertension: Qualified Codes: I10 - Essential (primary) hypertension Carlos Murray DO Jan 16, 2017 13:25
[2017-01-16] MEDS ORDERED: POLYETHYLENE GLYCOL 17 GM PKG PO ONE (13:30)
[2017-01-16] MEDS: LISINOPRIL 20 MG TAB PO SCH (14:22)
--- NOTE | 2017-01-16 15:03 | HHI.PR ---
Subjective Subjective Notes Sitting up in chair Tolerating clear liquids Still has not had BM Objective Vitals/I&O Vital Signs Date Time Temp Pulse Resp B/P (MAP) Pulse Ox O2 Delivery O2 Flow Rate FiO2 01/16/17 08:00 97.8 67 18 182/76 (111) 97 01/14/17 08:45 21 Labs Date/Time Source Procedure Growth Status 01/11/17 14:38 Urine Clean Catch Urine Culture - Final Klebsiella Pneumoniae Complete Radiology Last 24 hours Impressions Abdomen X-Ray 01/14/17 0600 Signed Impressions: Service Date/Time: Saturday, January 14, 2017 08:09 - CONCLUSION: 1. Stable examination with abnormally dilated small bowel in the right upper quadrant. Prior CT demonstrated this to represent obstruction to some degree secondary to a large ventral hernia. 2. Nasogastric tube distal tip terminates in the gastric cardia. Carlitos Foreman MD Last 24 hours Impressions Abdomen X-Ray 01/13/17 0000 Signed Impressions: Service Date/Time: Friday, January 13, 2017 10:09 - CONCLUSION: Stable dilated segment of small bowel overlying the right upper quadrant. Prior CT demonstrated this dilatation is related to some degree of bowel obstruction secondary to a large ventral hernia. Carlitos Foreman MD Last 24 hours Impressions Abdomen X-Ray 01/12/17 0000 Signed Impressions: Service Date/Time: Thursday, January 12, 2017 09:51 - CONCLUSION: 1. NG tube in good position. 2. Large calcified gallstone. 3. Dilated loop of small bowel in the right upper and mid abdomen unchanged from prior. 4. Small bilateral effusions. Lee Archuleta MD Cardiovascular: Regular Lungs: Clear Abdomen: Other (large ventral hernia) Extremities: Perfused A/P Assessment and Plan 61yo F with very large ventral hernia complicated by SBO -Continue with frequent ambulation -Pull NGT -Advance diet to full liquid with Glucerna shake at every meal The exam, history, and the medical decision-making described in the above note were completed with the assistance of the mid-level provider. I reviewed and agree with the findings presented. I attest that I had a [id number] encounter with the patient on the same day, and personally performed and documented my assessment and findings in the medical record. Discharge Planning Depending on hospital course, hopefully tomorrow Adeel Chin Jan 16, 2017 15:03 Deny Rosas MD Feb 14, 2017 12:34
[2017-01-16 15:45] VITALS: BP 178/93; PULSE 70; RESP 18; TEMP 98.4; O2SAT 96
[2017-01-16] MEDS: ONDANSETRON HCL 4 MG/2 ML VIAL IV PUSH PRN (19:34)
[2017-01-16] MEDS: cefTRIAXone INJ 1,000 MG in SODIUM CHLORIDE 0.9% INJ 100 ML IV SCH (19:34)
[2017-01-17] VITALS: BP 159/93; PULSE 72; RESP 19; TEMP 98.9; O2SAT 96
[2017-01-17] MEDS: PROMETHAZINE INJ 25 MG/ML VIAL IM PRN (00:36)
[2017-01-17 08:00] VITALS: BP 164/84; PULSE 72; RESP 19; TEMP 97.9; O2SAT 95
[2017-01-17] MEDS ORDERED: POLYETHYLENE GLYCOL 17 GM PKG PO SCH (09:00)
[2017-01-17] MEDS: PANTOPRAZOLE SODIUM 40 MG VIAL IV PUSH SCH (09:20)
[2017-01-17] MEDS: ONDANSETRON HCL 4 MG/2 ML VIAL IV PUSH PRN (09:20)
[2017-01-17] MEDS: LISINOPRIL 20 MG TAB PO SCH (09:21)
[2017-01-17 12:00] VITALS: BP 148/88; PULSE 83; RESP 18; TEMP 97.9; O2SAT 93
--- NOTE | 2017-01-17 13:14 | HHI.PR ---
Subjective Subjective Notes Laying in bed Had 2 BM today after Dulcolax and MoM Still having slight nausea after eating but is controlled with medications Objective Vitals/I&O Vital Signs Date Time Temp Pulse Resp B/P (MAP) Pulse Ox O2 Delivery O2 Flow Rate FiO2 01/17/17 12:00 97.9 83 18 148/88 (108) 93 01/14/17 08:45 21 Labs Date/Time Source Procedure Growth Status 01/11/17 14:38 Urine Clean Catch Urine Culture - Final Klebsiella Pneumoniae Complete Radiology Last 24 hours Impressions Abdomen X-Ray 01/14/17 0600 Signed Impressions: Service Date/Time: Saturday, January 14, 2017 08:09 - CONCLUSION: 1. Stable examination with abnormally dilated small bowel in the right upper quadrant. Prior CT demonstrated this to represent obstruction to some degree secondary to a large ventral hernia. 2. Nasogastric tube distal tip terminates in the gastric cardia. Carlitos Foreman MD Last 24 hours Impressions Abdomen X-Ray 01/13/17 0000 Signed Impressions: Service Date/Time: Friday, January 13, 2017 10:09 - CONCLUSION: Stable dilated segment of small bowel overlying the right upper quadrant. Prior CT demonstrated this dilatation is related to some degree of bowel obstruction secondary to a large ventral hernia. Carlitos Foreman MD Last 24 hours Impressions Abdomen X-Ray 01/12/17 0000 Signed Impressions: Service Date/Time: Thursday, January 12, 2017 09:51 - CONCLUSION: 1. NG tube in good position. 2. Large calcified gallstone. 3. Dilated loop of small bowel in the right upper and mid abdomen unchanged from prior. 4. Small bilateral effusions. Lee Archuleta MD Cardiovascular: Regular Lungs: Clear Abdomen: Other (Large ventral hernia, non-tender with positive bowel sounds) Extremities: Perfused A/P Assessment and Plan 61yo F with very large ventral hernia complicated by SBO -Continue with frequent ambulation -Add Milk of Mag and Dulcolax daily until BM -Encourage PO intake Use antiemetics as needed The exam, history, and the medical decision-making described in the above note were completed with the assistance of the mid-level provider. I reviewed and agree with the findings presented. I attest that I had a [id number] encounter with the patient on the same day, and personally performed and documented my assessment and findings in the medical record. Discharge Planning Depending on hospital course hopefully in the next day or two Adeel Chin Jan 17, 2017 13:14 Deny Rosas MD Feb 14, 2017 12:35
[2017-01-17] MEDS ORDERED: LISINOPRIL 20 MG TAB PO ONE (13:15)
[2017-01-17] MEDS ORDERED: PROT40TA PO (13:25)
--- NOTE | 2017-01-17 14:19 | HHI.PR ---
Subjective Remarks Reports very small BM this AM, Positive flatus tolerating diet does reports, "indigestion," about 30 mins after meals Objective Vitals Vital Signs Date Time Temp Pulse Resp B/P (MAP) Pulse Ox O2 Delivery O2 Flow Rate FiO2 01/17/17 12:00 97.9 83 18 148/88 (108) 93 01/17/17 08:00 97.9 72 19 164/84 (110) 95 01/17/17 00:00 98.9 72 19 159/93 (115) 96 01/16/17 15:45 98.4 70 18 178/93 (121) 96 Result Diagram: 01/14/1731601/14/17 031 Imaging Last Impressions Abdomen X-Ray 01/14/17 0600 Signed Impressions: Service Date/Time: Saturday, January 14, 2017 08:09 - CONCLUSION: 1. Stable examination with abnormally dilated small bowel in the right upper quadrant. Prior CT demonstrated this to represent obstruction to some degree secondary to a large ventral hernia. 2. Nasogastric tube distal tip terminates in the gastric cardia. Carlitos Foreman MD Abdomen/Pelvis CT 01/11/17 1305 Signed Impressions: Service Date/Time: December 14:18 - CONCLUSION: 1. There is overall no significant change since July 21. 2. Stable subpulmonic left pleural effusion with left basilar atelectasis and scarring. 3. Stable large ventral hernia containing small bowel, large bowel and extensive mesenteric fat. Mildly dilated loops of small bowel in the right abdomen are similar to prior examination. 4. Stable large calcified gallstone. 5. Stable small right renal cyst. No hydronephrosis or obstructive uropathy. Alex Polanco MD Objective Remarks GENERAL: This is a well-nourished, well-developed patient, in no apparent distress. CARDIOVASCULAR: Regular rate and rhythm without murmurs, gallops, or rubs. RESPIRATORY: Clear to auscultation. Breath sounds equal bilaterally. No wheezes , rales, or rhonchi. GASTROINTESTINAL: large protruding ventral hernia, +BSx 4, no g/r/r MUSCULOSKELETAL: Extremities without clubbing, cyanosis, or edema. NEURO: Alert & Oriented x4 to person, place, time, situation. Moves all ext x4 A/P Problem List: (1) Small bowel obstruction ICD Codes: K56.69 - Other intestinal obstruction Status: Acute Plan: - cmgmt with General Surgery - Pt is a 61 y/o female with a known large ventral hernia and has had previous SBO related to this hernia. - She presented with N/V and abd pain. - Pt has an outpt appt for surgery on January 26, 2017 - CT Abd/pelvis (01/11) with overall no significant change since July 21, stable large ventral hernia containing small bowel, large bowel and extensive mesenteric fat. Mildly dilated loops of small bowel in the right abdomen are similar to prior examination. - NGT clamped - pt tolerated full liquid diet will advance to soft diet - change Protonix to 40 mg PO BID - add Tums as needed for indigestion - encourage ambulation - possible discharge in the next 1-2 days (2) Ventral hernia ICD Codes: K43.9 - Ventral hernia without obstruction or gangrene Status: Chronic Plan: - As noted above. - Patient was apparently scheduled to have this repaired surgically in January with Dr. Díaz. (3) Urine findings abnormal ICD Codes: R82.90 - Unspecified abnormal findings in urine Plan: -uti klebsiella. completed Rocephin IV x 7 days will DC (4) Hypertension ICD Codes: I10 - Essential (primary) hypertension Status: Chronic Plan: Resume home medications: amlodipine 10 mg daily, lisinopril 20 mg PO daily and metoprolol 25 mg PO BID (5) Hyperlipidemia ICD Codes: E78.5 - Hyperlipidemia, unspecified Status: Chronic Plan: - Outpatient treatment will be resumed at discharge. Assessment and Plan Patient examined. Assessment and plan formulated with Lynn Phillips PA-C. I agree with the above. Problem Qualifiers (1) Hypertension: Qualified Codes: I10 - Essential (primary) hypertension Lynn Phillips Jan 17, 2017 14:19 Carlos Murray DO Jan 20, 2017 00:18
[2017-01-17 14:30] VITALS: BP 140/82
[2017-01-17] MEDS: BISACODYL EC 5 MG TABEC PO SCH (14:37)
[2017-01-17] MEDS: MAGNESIUM HYDROXIDE SUSP 30 ML CUP PO SCH (14:37)
[2017-01-17] MEDS ORDERED: CALCIUM CARBONATE 500 MG CHEWABLE TAB CHEW PRN (15:00)
[2017-01-17 15:32] VITALS: BP 161/72; PULSE 82; RESP 17; TEMP 99.4; O2SAT 93
[2017-01-17 19:16] VITALS: BP 152/86; PULSE 89; RESP 18; TEMP 98.7; O2SAT 94
[2017-01-17] MEDS: METOPROLOL TARTRATE 25 MG TAB PO SCH (20:23)
[2017-01-17] MEDS: PANTOPRAZOLE SOD 40 MG DELAYED RELEASE TAB PO SCH (20:23)
[2017-01-18] VITALS: BP 167/86; PULSE 86; RESP 16; TEMP 99.8; O2SAT 93
[2017-01-18 08:00] VITALS: BP 166/89; PULSE 93; RESP 18; TEMP 98.6; O2SAT 96
[2017-01-18] MEDS: PANTOPRAZOLE SOD 40 MG DELAYED RELEASE TAB PO SCH (08:58)
[2017-01-18] MEDS: METOPROLOL TARTRATE 25 MG TAB PO SCH (08:58)
[2017-01-18] MEDS: BISACODYL EC 5 MG TABEC PO SCH (09:00)
[2017-01-18] MEDS: MAGNESIUM HYDROXIDE SUSP 30 ML CUP PO SCH (09:00)
[2017-01-18] MEDS ORDERED: LISINOPRIL 20 MG TAB PO SCH ×2 (09:00)
[2017-01-18 12:00] VITALS: BP 128/63; PULSE 90; RESP 18; TEMP 98.3; O2SAT 92
--- NOTE | 2017-01-18 12:56 | HHI.PR ---
Subjective Subjective Notes Sitting up in bed Denies nausea or 'indigestion' Having BM Tolerating full liquids Objective Vitals/I&O Vital Signs Date Time Temp Pulse Resp B/P (MAP) Pulse Ox O2 Delivery O2 Flow Rate FiO2 01/18/17 08:00 98.6 93 18 166/89 (114) 96 01/14/17 08:45 21 Labs Date/Time Source Procedure Growth Status 01/11/17 14:38 Urine Clean Catch Urine Culture - Final Klebsiella Pneumoniae Complete Radiology Last 24 hours Impressions Abdomen X-Ray 01/14/17 0600 Signed Impressions: Service Date/Time: Saturday, January 14, 2017 08:09 - CONCLUSION: 1. Stable examination with abnormally dilated small bowel in the right upper quadrant. Prior CT demonstrated this to represent obstruction to some degree secondary to a large ventral hernia. 2. Nasogastric tube distal tip terminates in the gastric cardia. Carlitos Foreman MD Last 24 hours Impressions Abdomen X-Ray 01/13/17 0000 Signed Impressions: Service Date/Time: Friday, January 13, 2017 10:09 - CONCLUSION: Stable dilated segment of small bowel overlying the right upper quadrant. Prior CT demonstrated this dilatation is related to some degree of bowel obstruction secondary to a large ventral hernia. Carlitos Foreman MD Last 24 hours Impressions Abdomen X-Ray 01/12/17 0000 Signed Impressions: Service Date/Time: Thursday, January 12, 2017 09:51 - CONCLUSION: 1. NG tube in good position. 2. Large calcified gallstone. 3. Dilated loop of small bowel in the right upper and mid abdomen unchanged from prior. 4. Small bilateral effusions. Lee Archuleta MD Cardiovascular: Regular Lungs: Clear Abdomen: BS normal Extremities: Perfused Narrative Exam Large ventral hernia A/P Assessment and Plan 61yo F with very large ventral hernia complicated by SBO -Continue with frequent ambulation -Continue on Full Liquid diet for the next week. Protein goal to be 80grams daily -Cleared for discharge from a surgical standpoint The exam, history, and the medical decision-making described in the above note were completed with the assistance of the mid-level provider. I reviewed and agree with the findings presented. I attest that I had a [id number] encounter with the patient on the same day, and personally performed and documented my assessment and findings in the medical record. Discharge Planning Depending on hospital course Adeel Chin Jan 18, 2017 12:56 Deny Rosas MD Feb 14, 2017 12:36
--- NOTE | 2017-01-18 16:13 | HHI.DS ---
Discharge Summary Admission Date Jan 11, 2017 at 17:03 Discharge Date: Jan 18, 2017 Admitting Diagnosis Abdominal wall hernia with SBO (1) Small bowel obstruction ICD Codes: K56.69 - Other intestinal obstruction Status: Acute (2) Ventral hernia ICD Codes: K43.9 - Ventral hernia without obstruction or gangrene Status: Chronic (3) Urine findings abnormal ICD Codes: R82.90 - Unspecified abnormal findings in urine (4) Hypertension ICD Codes: I10 - Essential (primary) hypertension Status: Chronic (5) Hyperlipidemia ICD Codes: E78.5 - Hyperlipidemia, unspecified Status: Chronic Consultants General surgery Dr. Kumari Brief History This is a 61-year-old female with HTN and hx of SBO who presents to the emergency department with a known large ventral hernia which is scheduled for repair with Dr. Rosas in early January who presents to the emergency department with 3 days of abdominal discomfort mostly in the left lower quadrant , intermittent, worse when she turn to the left side. She has noted associated nausea, 3 episodes of vomiting and constipation. Her last bowel movement was more than 48 hours ago. She says this feels similar to when she's had a bowel obstruction in the past. The vomitus is foul smelling. No f/c. CT scan noted for large ventral hernia containing small bowel with no significant change from prior CT earlier this year. ER physician reportedly discussed the case with general surgery who requested patient be transferred to the [facility] for further evaluation by the general surgical team. CBC/BMP: 01/14/17 0317 01/14/17 0317 Imaging Last Impressions Abdomen X-Ray 01/14/17 0600 Signed Impressions: Service Date/Time: Saturday, January 14, 2017 08:09 - CONCLUSION: 1. Stable examination with abnormally dilated small bowel in the right upper quadrant. Prior CT demonstrated this to represent obstruction to some degree secondary to a large ventral hernia. 2. Nasogastric tube distal tip terminates in the gastric cardia. Carlitos Foreman MD Abdomen/Pelvis CT 01/11/17 1305 Signed Impressions: Service Date/Time: December 14:18 - CONCLUSION: 1. There is overall no significant change since July 21. 2. Stable subpulmonic left pleural effusion with left basilar atelectasis and scarring. 3. Stable large ventral hernia containing small bowel, large bowel and extensive mesenteric fat. Mildly dilated loops of small bowel in the right abdomen are similar to prior examination. 4. Stable large calcified gallstone. 5. Stable small right renal cyst. No hydronephrosis or obstructive uropathy. Alex Polanco MD PE at Discharge GENERAL: This is a well-nourished, well-developed patient, in no apparent distress. CARDIOVASCULAR: Regular rate and rhythm without murmurs, gallops, or rubs. RESPIRATORY: Clear to auscultation. Breath sounds equal bilaterally. No wheezes , rales, or rhonchi. GASTROINTESTINAL: large protruding ventral hernia, +BSx 4, no g/r/r MUSCULOSKELETAL: Extremities without clubbing, cyanosis, or edema. NEURO: Alert & Oriented x4 to person, place, time, situation. Moves all ext x4 Hospital Course Small bowel obstruction - cmgmt with General Surgery - Pt is a 61 y/o female with a known large ventral hernia and has had previous SBO related to this hernia. - She presented with N/V and abd pain. - Pt has an outpt appt for surgery on January 26, 2017 - CT Abd/pelvis (01/11) with overall no significant change since July 21, stable large ventral hernia containing small bowel, large bowel and extensive mesenteric fat. Mildly dilated loops of small bowel in the right abdomen are similar to prior examination. - NGT clamped then DC'd - pt tolerated full liquid diet - initially on IV Protonix which was transitioned to 40 mg PO BID - Tums as needed for indigestion - encourage ambulation - Patient having BMs and passing flatus - Patient cleared for DC by general surgery Ventral hernia - As noted above. - Patient was scheduled to have this repaired surgically in January with Dr. Díaz. Urine findings abnormal -uti klebsiella. completed Rocephin IV x 7 days Hypertension - Resume home medications: amlodipine 10 mg daily, lisinopril 20 mg PO daily and metoprolol 25 mg PO BID Hyperlipidemia - Outpatient treatment will be resumed at discharge. Pt Condition on Discharge: Stable Discharge Disposition: Discharge Home Discharge Instructions DIET: Follow Instructions for: Full Liquid Diet Additional Diet Instructions: -Continue on Full Liquid diet for the next week. Protein goal to be 80grams daily Activities you can perform: Regular-No Restrictions Other Activity Instructions: -Continue with frequent ambulation Follow up Referrals: PCP Follow-up - [address] [facility] - 1 Week with Deny Rosas MD New Medications: Pantoprazole (Protonix) 40 Mg Tab 40 MG PO BID for Ulcer Prevention, #30 TAB 0 Refills Continued Medications: Amlodipine (Amlodipine) 10 Mg Tab 10 MG PO DAILY for Blood Pressure Management, #30 TAB 0 Refills Lisinopril (Lisinopril) 20 Mg Tab 20 MG PO DAILY, #30 TAB 0 Refills Metoprolol Tartrate (Metoprolol Tartrate) 25 Mg Tab 25 MG PO BID for Blood Pressure Management, #60 TAB 0 Refills Simvastatin (Simvastatin) 40 Mg Tab 40 MG PO HS for Cholesterol Management, #30 TAB 0 Refills Additional Information Patient examined. Assessment and plan formulated with Lynn Phillips PA-C. I agree with the above. Lynn Phillips Jan 18, 2017 16:13 Carlos Murray DO Jan 20, 2017 00:32
--- NOTE | 2017-01-18 16:15 | HHI.DCPOC ---
Discharge Care Plan Diagnosis: (1) Small bowel obstruction (2) Ventral hernia Goals to Promote Your Health * To prevent worsening of your condition and complications * To maintain your health at the optimal level Directions to Meet Your Goals Take your medications as prescribed Follow your dietary instruction Follow activity as directed Keep your appointments as scheduled Take your immunizations and boosters as scheduled If your symptoms worsen call your PCP, if no PCP go to Urgent Care Center or Emergency Room Smoking is Dangerous to Your Health. Avoid second hand smoke Call the 24-hour hour crisis hotline for domestic abuse at Lynn Phillips Jan 18, 2017 16:15 Carlos Murray DO Jan 20, 2017 00:32
[2017-01-26] MEDS ORDERED: ASPI325T PO (08:42)
[2017-01-26] MEDS ORDERED: VITA100036 PO (08:44)
== END 2017-01-18 16:52 | disposition home or self-care (01) | DRG 389 ==
LOC: PHED 12:42 → PHEDA 17:03 → N06A 20:27
PROVIDERS: ADMIT Hospitalist; ATTEND Hospitalist
DX: K56.69 Other intestinal obstruction (principal); J98.11 Atelectasis; J90 Pleural effusion, not elsewhere classified; N39.0 Urinary tract infection, site not specified; I10 Essential (primary) hypertension; E78.5 Hyperlipidemia, unspecified; E66.9 Obesity, unspecified; K80.20 Calculus of gallbladder without cholecystitis without obstruction; B96.1 Klebsiella pneumoniae [K. pneumoniae] as the cause of diseases classified elsewhere; Z79.899 Other long term (current) drug therapy
CPT/HCPCS: 74000; 74020; 74177; 80048; 80053; 81001; 83690; 85025; 87077; 87086; 87186; 94664; 96361; 96374; 96375; C9113; J0696; J0744; J2270; J2405; J2550; J3480; J7030; Q9967